=== PATIENT | female | born 1945 | race Caucasian/White ===

== ENCOUNTER 2017-12-12 14:50 | Outpatient (REF) | payer MEDICARE, MEDICAID, SELFPAY ==
[2017-12-12 19:17] LABS: HCT 41.3 % (36.0-46.0); HGB 13.5 g/dL (12.0-15.5); Mean Corp. HGB Concentration 32.7 g/dL (32.0-36.0); Mean Corpuscular Hemoglobin 30.5 pg (27.0-33.0); Mean Corpuscular Volume 93.4 fL (80-95); Mean Platelet Volume 11.1 fL (8.0-11.0); Platelet Count 277 x1000/uL (130-400); RBC 4.42 m/cumm (4.00-5.20); RBC Distribution Width 14.5 % (11.7-14.6); White Blood Cell Count 7.61 k/cumm (4.4-10.8)
[2017-12-12 19:29] LABS: TSH (W/Ref FT4) 0.03 uIU/mL (0.358-3.74)
[2017-12-12 19:50] LABS: FREE T4 1.15 ng/dL (0.76-1.46)
== END 2017-12-12 15:10 ==
LOC: NCHCN 14:50
PROVIDERS: PCP Internal Medicine; Visit Provider Internal Medicine
DX: R00.0 Tachycardia, unspecified (principal); E05.00 Thyrotoxicosis with diffuse goiter without thyrotoxic crisis or storm; F32.9 Major depressive disorder, single episode, unspecified
CPT/HCPCS: 85027; 84439; 84443

== ENCOUNTER 2018-06-12 12:07 | Outpatient (REF) | payer MEDICARE, MEDICAID, SELFPAY ==
[2018-06-12 19:03] LABS: HCT 40.7 % (36.0-46.0); HGB 13.1 g/dL (12.0-15.5); Mean Corp. HGB Concentration 32.2 g/dL (32.0-36.0); Mean Corpuscular Hemoglobin 30.6 pg (27.0-33.0); Mean Corpuscular Volume 95.1 fL (80-95); Platelet Count 243 x1000/uL (130-400); RBC 4.28 m/cumm (4.00-5.20); RBC Distribution Width 13.3 % (11.7-14.6)
[2018-06-12 19:18] LABS: Bacteria Many HPF (Negative); C & S Indicated? Yes; Casts Negative LPF (Negative); Crystals Negative HPF (Negative); Epithelial Cells Rare HPF (Negative); Mucus Negative (Negative); Other Cells Negative (Negative); WBC >50 HPF (0-5)
[2018-06-12 19:23] LABS: Anion Gap 10.8 mmol/L (3-11); BUN 17 mg/dL (7-18); CO2 26.2 mmol/L (21.0-32.0); CREATININE 1.13 mg/dL (0.55-1.02); Calcium 8.8 mg/dL (8.5-10.1); Chloride 97 mmol/L (98-107); Glucose 118 mg/dL (70-100); Potassium 4.5 mmol/L (3.5-5.1); Sodium 134 mmol/L (136-145); TSH 0.13 uIU/mL (0.358-3.74)
== END 2018-06-12 12:27 ==
LOC: NCHCN 12:07
PROVIDERS: PCP Internal Medicine; Visit Provider Internal Medicine
DX: E05.00 Thyrotoxicosis with diffuse goiter without thyrotoxic crisis or storm (principal); F32.9 Major depressive disorder, single episode, unspecified; N39.46 Mixed incontinence
CPT/HCPCS: 80048; 85027; 87077; 81015; 84443; 87086; 87186

== ENCOUNTER 2018-09-14 15:27 | Outpatient (REF) | payer MEDICARE, MEDICAID, SELFPAY ==
[2018-09-14 19:53] LABS: FREE T4 0.89 ng/dL (0.76-1.46); TSH 0.03 uIU/mL (0.36-3.74)
== END 2018-09-14 15:47 ==
LOC: NCHCN 15:27
PROVIDERS: PCP Internal Medicine; Visit Provider Internal Medicine
DX: E05.00 Thyrotoxicosis with diffuse goiter without thyrotoxic crisis or storm (principal); F17.210 Nicotine dependence, cigarettes, uncomplicated; Z86.79 Personal history of other diseases of the circulatory system
CPT/HCPCS: 84439; 84443

== ENCOUNTER 2019-04-16 14:08 | Outpatient (REF) | payer MEDICARE, MEDICAID, SELFPAY ==
[2019-04-16 20:08] LABS: HCT 39.7 % (36.0-46.0); HGB 12.9 g/dL (12.0-15.5); Mean Corp. HGB Concentration 32.5 g/dL (32.0-36.0); Mean Corpuscular Hemoglobin 30.9 pg (27.0-33.0); Mean Platelet Volume 10.5 fL (8.0-11.0); Platelet Count 354 x1000/uL (130-400); RBC 4.18 m/cumm (4.00-5.20); RBC Distribution Width 13.2 % (11.7-14.6); White Blood Cell Count 8.89 k/cumm (4.4-10.8)
[2019-04-16 20:25] LABS: FREE T4 1.65 ng/dL (0.76-1.46); TSH 0.03 uIU/mL (0.36-3.74)
== END 2019-04-16 14:28 ==
LOC: NCHCN 14:08
PROVIDERS: PCP Internal Medicine; Visit Provider Internal Medicine
DX: E05.00 Thyrotoxicosis with diffuse goiter without thyrotoxic crisis or storm (principal); F17.210 Nicotine dependence, cigarettes, uncomplicated; E66.3 Overweight
CPT/HCPCS: 85027; 84439; 84443

== ENCOUNTER 2020-03-24 16:52 | Outpatient (REF) | payer MEDICARE, MEDICAID, SELFPAY ==
[2020-03-24 15:29] LABS: HCT 41.6 % (36.0-46.0); HGB 13.4 g/dL (11.2-15.7); MCH 30.5 pg (27.0-33.0); MCHC 32.2 % (32.0-36.0); MCV 94.8 fL (80-95); MPV 10.7 fL (8.0-11.0); Platelet Count 241 10^3/uL (130-400); RBC 4.39 10^6/uL (3.93-5.22); RDW 14.1 % (11.7-14.6); RDW-SD 49.9 fL; WBC 7.48 10^3/uL (4.4-10.8)
[2020-03-24 15:48] LABS: Anion Gap 5.7 mmol/L (3-11); BUN 17 mg/dL (7-18); CO2 30.3 mmol/L (21.0-32.0); CREATININE 0.9 mg/dL (0.55-1.02); Calcium 8.8 mg/dL (8.5-10.1); Chloride 105 mmol/L (98-107); Glucose 90 mg/dL (74-106); Potassium 4.6 mmol/L (3.5-5.1); Sodium 141 mmol/L (136-145); TSH (W/Ref FT4) 6.03 uIU/mL (0.36-3.74)
[2020-03-24 16:14] LABS: FREE T4 0.77 ng/dL (0.76-1.46)
== END 2020-03-24 17:12 ==
LOC: NCHCN 16:52
PROVIDERS: PCP Internal Medicine; Visit Provider Internal Medicine
DX: E05.00 Thyrotoxicosis with diffuse goiter without thyrotoxic crisis or storm (principal); I10 Essential (primary) hypertension
CPT/HCPCS: 80048; 85027; 84439; 84443

== ENCOUNTER 2020-04-09 18:41 | Outpatient (REF) | payer MEDICARE, MEDICAID, SELFPAY ==
[2020-04-11 15:31] LABS: COVID-19 RT-PCR UVMMC Result Negative (Negative)
== END 2020-04-09 18:42 | disposition home or self-care (01) ==
LOC: NCHCN 18:41
PROVIDERS: PCP Internal Medicine; Visit Provider Internal Medicine
DX: J06.9 Acute upper respiratory infection, unspecified (principal)
CPT/HCPCS: U0003; U0005

== ENCOUNTER 2020-08-28 15:28 | Outpatient (REF) | payer MEDICARE, MEDICAID, SELFPAY ==
[2020-08-28 18:36] LABS: HCT 40.7 % (36.0-46.0); HGB 12.6 g/dL (11.2-15.7); MCH 30.1 pg (27.0-33.0); MCV 97.4 fL (80-95); MPV 10.9 fL (8.0-11.0); Platelet Count 245 10^3/uL (130-400); RBC 4.18 10^6/uL (3.93-5.22); RDW 13.9 % (11.7-14.6); RDW-SD 50.4 fL; WBC 6.66 10^3/uL (4.4-10.8)
[2020-08-28 19:09] LABS: Calculated LDL 162 mg/dL (<100); Cholesterol 233 mg/dL (<200); HDL Cholesterol 32 mg/dL (40-60); TSH (W/Ref FT4) 5.64 uIU/mL (0.36-3.74); Triglyceride 198 mg/dL (<150)
[2020-08-28 19:43] LABS: FREE T4 0.72 ng/dL (0.76-1.46)
== END 2020-08-28 15:29 | disposition home or self-care (01) ==
LOC: NCHCN 15:28
PROVIDERS: PCP Internal Medicine; Visit Provider Internal Medicine
DX: E05.00 Thyrotoxicosis with diffuse goiter without thyrotoxic crisis or storm (principal); F17.210 Nicotine dependence, cigarettes, uncomplicated; Z66 Do not resuscitate
CPT/HCPCS: 80061; 85027; 84439; 84443

== ENCOUNTER 2022-08-08 20:20 | Inpatient (IN) | payer MEDICARE, SELFPAY ==
[2022-08-08] VITALS (38 sets, daily range): BP systolic 98–149; BP diastolic 47–83; PULSE 84–113; RESP 15–25; TEMP 36.4–36.7; O2SAT 93–97
--- NOTE | 2022-08-08 20:15 | DI.CT_ITS ---
Exam(s) CT BRAIN NECK CTA EXAM: CT BRAIN NECK CTA CLINICAL HISTORY: L sided facial drrop and arm weakness. TECHNIQUE: Imaging Protocol: Axial CT angiography was performed with multi-slice acquisition and mu lti-planar and 3D reconstructions. CONTRAST MATERIAL: Intravenous: Omnipaque 350 Contrast volume:85 ml COMPARISON: No exams were available for comparison FINDINGS: CT Head W/O and W contrast: Ventricles and Extra axial spaces: Normal in size and morphology for the degree of atrophy.. Hemorrhage: None. Cerebral parenchyma: Mild atrophy. Mild white matter changes of small vessel disease. Midline shift: None. Brainstem/Cerebellum: Normal. Calvarium: Normal. Visualized Paranasal sinuses/Mastoids: Clear. Soft Tissues: Unremarkable. Enhancement: Normal. CTA Brain W: Internal Carotid Arteries: Petrous: Normal. Cavernous: Normal. Cerebral: Normal. Middle Cerebral Arteries: Right: No aneurysm. There is significant stenosis versus occlusion in the superior M2 segment. Con trast seen distal to this area.. Left: No aneurysm, occlusion or significant stenosis. Anterior Cerebral Arteries: Right: No aneurysm, occlusion or significant stenosis. Left: No aneurysm, occlusion or significant stenosis. Posterior cerebral Arteries: Right: No aneurysm, occlusion or significant stenosis. Left: No aneurysm, occlusion or significant stenosis. Vertebral Arteries: Right: No aneurysm, occlusion or significant stenosis. Left: No aneurysm, occlusion or significant stenosis. Basilar Artery: No aneurysm, occlusion or significant stenosis. CTA Neck W: Common Carotid: Right: No dissection, occlusion or significant stenosis. Left: No dissection, occlusion or significant stenosis. External Carotid: Right: No dissection, occlusion or significant stenosis. Left: No dissection, occlusion or significant stenosis. Internal Carotid: Right: Moderate stenosis secondary to plaque at the proximal right internal carotid artery. No disse ction, occlusion or significant stenosis. Left: Calcified plaque no dissection, occlusion or significant stenosis. Vertebral Artery: Right: No dissection, occlusion or significant stenosis. Left: No dissection, occlusion or significant stenosis. Lung Apices: Severe emphysematous changes. Bones: No acute abnormality. Soft Tissues: Normal. IMPRESSION: 1. CTA head: Severe stenosis versus occlusion in the superior M2 segment of the left middle cerebral artery. 2. Unremarkable CT Head. No acute infarct visible. 3. CTA neck: Moderate stenosis right proximal internal carotid artery. RADIATION DOSE DELIVERED: 2,186.01mGy.cm Total DLP DATA REPOSITORY: All CT scans at this facility are submitted to the National Radiology Data Registry (NRDR) Dose Index Registry (DIR) with the [employer] (A[employer]). RADIATION OPTIMIZATION: All CT scans at this facility use at least one of these dose optimization te chniques: automated exposure control; mA and/or kV adjustment per patient size (includes targeted exa ms where dose is matched to clinical indication); or iterative reconstruction.
--- NOTE | 2022-08-08 20:15 | RT.EKG_ITS ---
APPROVED REPORT Exam: Resting ECG Reason for Exam: neuro sxs Patient Location: E HR:100 bpm ECG Measurements Heart Rate 100 AXIS MT 180 P 96 QRSd 114 QRS -5 QT 398 T 98 QTc 516 Conclusion Sinus tachycardia...rate> 99 Ventricular premature complex...V complex w/ short R-R interval Left atrial enlargement...P, P'>60mS, <-0.15mV V1 Incomplete right bundle branch block...QRSd >112, terminal axis(90,270) Repol abnrm suggests ischemia, diffuse leads...ST-T neg, ant/lat/inf Prolonged QT interval...QTc >500mS no old EKG for comp
--- NOTE | 2022-08-08 20:30 | ED.GENADUL_ITS ---
Discharge Plan Disposition Patient Disposition: Admit to [facility] Condition: Fair Discharge Details Clinical Impression: Acute cerebrovascular accident (CVA) Admit Date/Time: 08/08/22 23:35 Admit Provider: Oziel Gipson Attending Provider: Oziel Gipson Primary Care Provider: Unknown,Unknown ED Provider: Pati Randall Discharge Data Discharge Date/Time-TO BE ENTERED AT DEPARTURE: 08/08/22 23:35 Medical Decision Making According to son, the patient is a full code. She would want CPR and an endotracheal tube for short period of time. Do not feel that she is a candidate candidate for thrombolytics at this time. It is unclear exactly when her symptoms began. I cannot run any absolute or relative contraindications with her. I have even tried just having her shake her head yes or no but still cannot get confirmation on any questions. Dr. Mitzy jeffers called at [phone]. The patient has a distal M2 left MCA occlusion or high-grade stenosis. She has not yet looked at her CTA neck. 2136 Provider Access at [facility] would not page stroke neurology without Facesheet. This was sent. The provider is still having difficulty opening the films at [facility] and will not talk to me until she has reviewed these. [address] Peck from [facility] stroke neuro. CTA neck is negative. We discussed the M2 distal occlusion and she says that nobody would go after this with embolectomy. She concurs with no thrombolytics because we do not really know last known well time or contraindications. I told her that the son requested she be transferred there and she states they do not accept people based on family request. We have sent the films down there again and she will attempt to open them. She will call back if she feels that there is anything that could be helped with embolectomy. 2229 neurology callback from [facility]. They reviewed the films with this interventional list who stated that there was nothing that they would do patient has a history of tachycardia but not atrial fibrillation her [facility] records. She will need an echo as well as monitoring. 99 patient's son Axel here in the ED. I answered all of his questions and updated him as best I could. Medical Records Medical records reviewed: Yes I reviewed the patient's medical records. Medical records narrative: We have no old medical records on the patient. We have been called [facility] and they have never seen the patient. Imaging Data Radiologic Study: Attestation: I personally reviewed and interpreted this imaging study as follows: Imaging: CT Scan Radiologist's impression: See note above in MDM. Lab Data Lab results reviewed: Yes I reviewed the patient's lab results. ECG Data Attestation: I personally reviewed and interpreted this ECG (s) as follows: (Sinus tachycardia at 100, PVC, LAE, incomplete RBBB, subtle depression inferiorly and ST depression in I) Interpretation: Unclear if pts EKG changes are old or new. Certainly EKG changes can be seen with CVA. Serial trops have been normal. HPI General Date/Time Provider Initiated Documentation: 08/08/22 20:27 . HPI Narrative: This 82-year-old female patient is brought in by EMS on a stroke alert. According to what EMS told me the patient is from [place] and vacations here during the summer (she shook her head vigorously no when I said this). She evidently lives alone in a cabin. She called 911 and seemed confus they report the NIHSS in the field was 28 with a fast ED 7. The dispatcher had trouble understanding the patient. EMS was dispatched and when they arrived found that the patient had a left facial droop as well as right arm and leg weakness. EMS in the ED tells me that she is aphasic with a fixed left gaze. BP was a little bit high in the field at 168/90. Blood sugar x2 in field were 132 and 148. NIHSS score in the field was 28. Fast ED score was 7. This was all per EMS. As she was found on the ground it certainly seems like she probably fell. I spoke to the patient's son, Axel Sanford, who lives in [place] ([phone]). He told me that he received a call from the patient's neighbor she was being taken to the hospital. The neighbor told him she saw the EMS vehicles. She reportedly is on a medication to keep her heart rate slow due to to an arrhythmia. She is on an antidepressant. He does not know whether she is on medications for high blood pressure. He reports a history of IV contrast and shellfish allergy. He says she has some weird allergies. I explained to him that we had already given her IV dye for CTA. The patient is unable to move her right arm and leg. I cannot ascertain whether there is a facial droop as she is unable to cooperate with this exam. Did not find that she has a gaze deficit at this time. She is unable to perform full EOMs. EMS later told me that the patient was last known well at 7 PM when she called 911. I explained to him that this was not when she was last known well as he says that at that time she was repeating her name and address. BPs in the ED 129/72 and 136/63. Related Data Home Medications Medication Instructions Recorded Confirmed amitriptyline 75 mg tablet 100 mg PO HS 11/12/13 05/14/17 aspirin 81 mg tablet,delayed 81 mg PO DAILY 11/12/13 05/14/17 release dextran 70-hypromellose (PF) 0.1 2 drp UD TID 11/12/13 05/14/17 %-0.3 % eye drops in a dropperette (Artificial Tears (PF)) methimazole 10 mg tablet 10 mg PO BID 11/12/13 05/14/17 mvbqzrcwnvza-Gq-cmii-minerals 18 1 tab PO DAILY 11/12/13 05/14/17 mg-0.4 mg tablet (ESSENTIAL Daily) clonazepam 0.5 mg tablet 1 tab PO BID PRN PRN 01/06/16 05/14/17 metoprolol succinate 50 mg 75 mg PO DAILY ##60 01/08/16 05/14/17 tablet,extended release 24 hr doxycycline hyclate 100 mg capsule 100 mg PO BID #8 caps 05/14/17 amitriptyline 100 mg tablet 100 mg PO DAILY 08/09/22 08/09/22 clonazepam 0.5 mg tablet 0.5 mg PO DAILY 08/09/22 08/09/22 metoprolol succinate 100 mg 100 mg PO DAILY 08/09/22 08/09/22 tablet,extended release 24 hr Previous Rx's Medication Instructions Recorded metoprolol succinate 50 mg 75 mg PO DAILY ##60 01/08/16 tablet,extended release 24 hr doxycycline hyclate 100 mg capsule 100 mg PO BID #8 caps 05/14/17 Allergies Allergy/AdvReac Type Severity Reaction Status Date / Time acetaminophen [From Tylenol] Allergy Mild Unverified 08/09/22 12:28 buspirone HCl [From BuSpar] Allergy Mild Hives Unverified 08/09/22 12:28 cyclobenzaprine HCl Allergy Mild Unverified 08/09/22 12:28 [From Flexeril] famotidine [From Pepcid] Allergy Mild Unverified 08/09/22 12:28 ketorolac tromethamine Allergy Mild Unverified 08/09/22 12:28 [From Toradol] nickel [Nickel] Allergy Mild Unverified 08/09/22 12:28 oxycodone HCl [From Percodan] Allergy Mild Unverified 08/09/22 12:28 oxycodone terephthalate Allergy Mild Unverified 08/09/22 12:28 [From Percodan] paroxetine HCl [From Paxil] Allergy Mild Unverified 08/09/22 12:28 Penicillins Allergy Mild Unverified 08/09/22 12:28 saccharin Allergy Mild Unverified 08/09/22 12:28 shellfish derived Allergy Mild Unverified 08/09/22 12:28 Sulfa (Sulfonamide Allergy Mild Unverified 08/09/22 12:28 Antibiotics) aspirin Allergy Unknown Unverified 08/09/22 12:28 buspirone [From BuSpar] Allergy Unknown Unverified 08/09/22 12:28 codeine Allergy Unknown Unverified 08/09/22 12:28 cyclobenzaprine Allergy Unknown Unverified 08/09/22 12:28 [From Flexeril] ketorolac [From Toradol] Allergy Unknown Unverified 08/09/22 12:28 oxycodone [From Percodan] Allergy Unknown Unverified 08/09/22 12:28 paroxetine [From Paxil] Allergy Unknown Unverified 08/09/22 12:28 red dye Allergy Unknown Unverified 08/09/22 12:28 codeine phosphate AdvReac Intermediate Nausea Unverified 08/09/22 12:28 [From Tylenol-Codeine] Review of Systems Unobtainable due to mental condition (aphasic from stroke) Constitutional Constitutional: Reports as per HPI, Denies chills, Denies fever(s) and Denies headache(s) Eyes Eyes: Denies blurry vision and Reports other (no redness) ENT Ears, Nose, Mouth, and Throat: Denies dizziness, Denies otalgia, Denies headache(s), Denies nasal congestion, Denies nasal discharge, Denies neck pain and Denies odynophagia Cardiovascular Cardiovascular: Denies chest pain, Denies palpitations and Denies dyspnea Respiratory Respiratory: Denies cough and Denies dyspnea Gastrointestinal Gastrointestinal: Denies abdominal pain, Denies diarrhea, Denies nausea, Denies odynophagia and Denies vomiting Genitourinary Genitourinary: Denies dysuria Musculoskeletal Musculoskeletal: Denies myalgias, Denies muscle weakness, Denies neck pain and Denies numbness Integumentary/Breasts Skin/Breast: Denies erythema and Denies rash Neurologic Neurologic: Denies dizziness, Denies headache(s) and Denies numbness Endocrine Endocrine: Denies palpitations PFSH All Active Problems (Updated 08/10/22 @ 20:34 by Ruth Jackson MD) Carotid stenosis, right (Acute) Palliative care encounter (Acute) Advance care planning (Acute) Acute cerebrovascular accident (CVA) (Acute) Hyperthyroidism (Chronic) Depression with anxiety (Chronic) Tachyarrhythmia (Chronic) Acute CHF (Acute) Dysphagia (Acute) Aphasia (Acute) Hypothyroidism (Chronic) Hemiparesis of right dominant side (Acute) DVT prophylaxis (Acute) Discharge planning issues (Acute) Social History Smoking/Tobacco Use Status: Current every day Smoking risk assessment performed?: Yes Drug use: Never Substance use type: unknown Do you feel safe in your relationship?: Yes Exam Const General: well developed, well groomed and acute distress Nutritional Appearance: well nourished Orientation: alert, awake and oriented x3 (Unable to assess orientation as patient is essentially aphasic) [facility] Head: normocephalic and atraumatic Ears: external ears normal Face and sinus: other (Unable to perform cranial nerve VII exam, cannot ascertain sensation) Mouth: mucous membranes dry (MM dry) and other (Cannot extend tongue) Eyes Eyelids: eyelids normal Conjunctivae: conjunctivae normal Pupils: PERRL EOM: EOM abnormal (Cannot ascertain AOM as patient cannot perform exam) Direct ophthalmoscopy: other Neck Neck: full ROM and supple Chest Chest: normal inspection of the chest Resp Effort & Inspection: normal respiratory effort and not able to speak in complete sentences Auscultation: clear to auscultation bilaterally Cardio Rate: regular rate Rhythm: regular rhythm Heart Sounds: no murmurs and no rubs GI Inspection: normal to inspection Palpation: soft, nontender and other (non distended) Auscultation: normal bowel sounds External Female Exam: normal external appearance Skin General skin exam: no rashes or lesions noted and other (pink, warm, dry) Neuro General: patient alert and patient awake Cranial Nerves: CN's II-XI intact bilaterally (Cannot perform in full) Speech: abnormal speech and expressive aphasia Motor: strength 5/5 throughout (L arm and leg only) and other (unable to lift R arm and leg) Sensory Exam: sensory deficits noted (unable to ascertain) Pupils: Mid position: bilateral Extrem General: normal to inspection, full ROM (L side) and pedal edema present Psych Mental Status: mental status grossly normal Speech and Movement: speech and movement normal Affect: normal affect Critical Care Time Critical Care Time Critical Care Time: Yes Total Critical Care Time: 90 Attestation: Consultation with [facility] neurology, V rad radiologist, nursing, EMS. Attempts made to obtain old records including from [facility]. Lab results, EKG, CT scans reviewed.
[2022-08-08] MEDS: Omnipaque 350 MG/ML 100 ML BTL IJ (20:40)
[2022-08-08] MEDS: Normal Saline - Diluent 50 ML VIAL IJ (20:40)
[2022-08-08] MEDS: Normal Saline 1,000 ML 1000 ML IV (20:42)
[2022-08-08 20:47] LABS: Abs Immature Grans 0.02 10^3/uL (0.0-0.06); Absolute Basophil Count 0.04 10^3/uL (0.0-0.2); Absolute Eosinophil Count 0.23 10^3/uL (0.0-0.7); Absolute Lymphocyte Count 1.82 10^3/uL (1.2-3.4); Absolute Monocyte Count 0.72 10^3/uL (0.1-0.8); Absolute Neutrophil Count 4.78 10^3/uL (1.2-6.7); Basophils % 0.5; HCT 33.6 % (36.0-46.0); HGB 10.8 g/dL (11.2-15.7); Immature Grans % 0.3; Lymphocytes % 23.9; MCH 29.6 pg (27.0-33.0); MCHC 32.1 % (32.0-36.0); MCV 92 fL (80-95); MPV 10.2 fL (8.0-11.0); Monocytes % 9.5; Neutrophils % 62.8; Platelet Count 223 10^3/uL (130-400); RBC 3.65 10^6/uL (3.93-5.22); RDW 14.8 % (11.7-14.6); RDW-SD 50.1 fL; WBC 7.61 10^3/uL (4.4-10.8)
[2022-08-08 21:08] LABS: ALT 9 U/L (14-59); AST 12 U/L (15-37); Albumin 2.7 g/dL (3.4-5.0); Alkaline Phosphatase 72 U/L (46-116); Anion Gap 6.3 mmol/L (3-11); BUN 18 mg/dL (7-18); Bilirubin, Total 0.4 mg/dL (0.2-1.0); CO2 27.7 mmol/L (21.0-32.0); CREATININE 0.9 mg/dL (0.55-1.02); Calcium 7.9 mg/dL (8.5-10.1); Chloride 106 mmol/L (98-107); Estimated GFR 67.08 (mL/min/1.73m2); Glucose 120 mg/dL (74-106); Potassium 3.6 mmol/L (3.5-5.1); Sodium 140 mmol/L (136-145); Total Protein 6.1 g/dL (6.4-8.2); Troponin I < 50 ng/L (<or=60)
--- NOTE | 2022-08-08 21:43 | DI.VRAD_ITS ---
PROCEDURE INFORMATION: Exam: CT Head Without Contrast Exam date and time: 08/08/2022 8:20 PM Age: 82 years old Clinical indication: Stroke-like symptoms; Bilateral facial droop; Generalized weakness; Additional info: Right arm weakness TECHNIQUE: Imaging protocol: Computed tomography of the head without contrast. Other technique: STROKE PROTOCOL was implemented. COMPARISON: No relevant prior studies available. FINDINGS: Brain: There is no acute intracranial hemorrhage, mass effect or midline shift. No large acute territorial infarct identified. There are patchy regions of hypodensity in the periventricular and subcortical white matter, likely on the basis of chronic microvascular ischemic disease. Cerebral ventricles: The ventricles and sulci are prominent in size, which is at least in part due to global cerebral volume loss. Paranasal sinuses: Visualized sinuses are unremarkable. No fluid levels. Mastoid air cells: Visualized mastoid air cells are well aerated. Bones/joints: Unremarkable. No acute fracture. Soft tissues: Unremarkable. IMPRESSION: No acute intracranial hemorrhage, mass effect or midline shift. ASSESSMENT: ASPECTS ([place] Stroke Program Early CT Score) is 10. PROCEDURE INFORMATION: Exam: CTA Head With Contrast, Arteriography Exam date and time: 08/08/2022 8:20 PM Age: 82 years old Clinical indication: Stroke-like symptoms; Bilateral facial droop; Generalized weakness; Additional info: Right arm weakness TECHNIQUE: Imaging protocol: Computed tomographic angiography of the head with contrast. Exam focused on the arteries. 3D rendering (Not supervised by radiologist): MIP and/or 3D reconstructed images were created by the technologist. Contrast material: OMNIPAQUE 350; Contrast volume: 85 ml; Contrast route: INTRAVENOUS (IV); COMPARISON: No relevant prior studies available. FINDINGS: ANTERIOR CIRCULATION: Right internal carotid artery: Intracranial segment is patent with no significant stenosis. No aneurysm. Right middle cerebral artery: There is short segment occlusion versus high-grade stenosis in the superior segment of the left middle cerebral artery. Right anterior cerebral artery: No occlusion or significant stenosis. No aneurysm. Left internal carotid artery: Intracranial segment is patent with no significant stenosis. No aneurysm. Left middle cerebral artery: No occlusion or significant stenosis. No aneurysm. Left anterior cerebral artery: No occlusion or significant stenosis. No aneurysm. POSTERIOR CIRCULATION: Right vertebral artery: No occlusion or significant stenosis. No aneurysm. Left vertebral artery: No occlusion or significant stenosis. No aneurysm. Basilar artery: No occlusion or significant stenosis. No aneurysm. Right posterior cerebral artery: No occlusion or significant stenosis. No aneurysm. Left posterior cerebral artery: No occlusion or significant stenosis. No aneurysm. Brain: No definite mass, mass effect, or midline shift. Cerebral ventricles: No ventriculomegaly. Bones/joints: Unremarkable. No acute fracture. Soft tissues: Unremarkable. IMPRESSION: Short segment occlusion versus high-grade stenosis in the superior M2 segment of the left MCA. PROCEDURE INFORMATION: Exam: CTA Neck With Contrast Exam date and time: 08/08/2022 8:20 PM Age: 82 years old Clinical indication: Stroke-like symptoms; Bilateral facial droop; Generalized weakness; Additional info: Right arm weakness TECHNIQUE: Imaging protocol: Computed tomographic angiography of the neck with contrast. 3D rendering (Not supervised by radiologist): MIP and/or 3D reconstructed images were created by the technologist. Radiation optimization: All CT scans at this facility use at least one of these dose optimization techniques: automated exposure control; mA and/or kV adjustment per patient size (includes targeted exams where dose is matched to clinical indication); or iterative reconstruction. Contrast material: OMNIPAQUE 350; Contrast volume: 85 ml; Contrast route: INTRAVENOUS (IV); COMPARISON: No relevant prior studies available. FINDINGS: Right common carotid artery: No stenosis. No dissection or occlusion. Right internal carotid artery: There is approximately 50% stenosis at the proximal right internal carotid artery, secondary to atherosclerotic plaque. No dissection or occlusion. Right external carotid artery: No occlusion or stenosis of the origin. Left common carotid artery: No stenosis. No dissection or occlusion. Left internal carotid artery: No stenosis of the extracranial segment. No dissection or occlusion. Prominent atherosclerotic plaque noted. Left external carotid artery: No occlusion or stenosis of the origin. Right vertebral artery: No stenosis. No dissection or occlusion. Left vertebral artery: No stenosis. No dissection or occlusion. Soft tissues: Normal. No significant soft tissue swelling. Bones/joints: No acute fracture. Lungs: Extensive centrilobular emphysema noted throughout the lung lawson. IMPRESSION: 1. Moderate stenosis at the proximal right ICA secondary to atherosclerotic plaque. 2. Extensive centrilobular emphysema throughout the bilateral lung lawson. REFERENCES: 1. NASCET CRITERIA. The degree of stenosis in the cervical segment of the internal carotid artery is based on NASCET criteria. Normal is no stenosis. Mild is less than 50% stenosis. Moderate is 50-69% stenosis. Severe is 70% to 99% stenosis. Total occlusion is no detectable patent lumen. 2. THIS REPORT CONTAINS FINDINGS THAT MAY BE CRITICAL TO PATIENT CARE. The findings were verbally communicated via telephone conference with Pati Randall at 9:24 PM EDT on 08/08/2022. The findings were acknowledged and understood. Dictated and Authenticated by: Solange Nevarez MD. Ordering:MARY JO Krueger MD
[2022-08-08 22:00] LABS: PTT Activated 24.5 sec (21.5-31.9); Prothrombin Time 10.4 sec (9.3-11.0)
[2022-08-08] MEDS: Aspirin 300 MG SUPP 325 MG PR (22:13)
[2022-08-08] MEDS: Normal Saline 1,000 ML 125 ML IV (22:45)
[2022-08-09] VITALS (254 sets, daily range): BP systolic 113–170; BP diastolic 54–120; PULSE 65–117; RESP 12–33; TEMP 36.3–37.3; O2SAT 89–98
--- NOTE | 2022-08-09 | DI.RAD_ITS ---
Exam(s) XR PORTABLE CHEST AP EXAM: XR PORTABLE CHEST AP CLINICAL HISTORY: ?CHF, aspiration pneumonia - respiratory distress TECHNIQUE: 2D digital imaging was performed. COMPARISON: No exams were available for comparison FINDINGS: Leads overlie the chest. LUNGS: Vascular prominence. Mildly increased interstitial markings. Findings could represent CHF. No pleural abnormality seen. No focal area of consolidation visible. HEART: Enlarged. Calcification at arch. AORTA: Normal diameter. BONES: Unremarkable for age. Soft tissues: Unremarkable. IMPRESSION: Cardiomegaly and mild CHF. DATA REPOSITORY: RADIATION DOSE DELIVERED:
--- NOTE | 2022-08-09 00:10 | HPE_ITS ---
Date of service: 08/08/22 Time of Service: 23:30 Assessment and Plan Assessment and plan (1) Acute cerebrovascular accident (CVA): Start date: 08/08/22 Status: Acute Assessment and plan: Patient has flaccid right hemiplegia and right facial droop with expressive aphasia which is severe. CT of the head does reveal occlusion of the left M2 branch of the MCA and she is not a candidate for tPA or thrombolytectomy. She was given an aspirin rectally and this will be Continued orally if she can chew with further evaluation including echocardiogram with bubble study, cardiac monitoring with the patient having a dysrhythmia but not atrial fibrillation and MRI of the brain in the morning. She will require long-term rehabilitation. PT/OT and SP with swallow evaluation were ordered. (2) Hyperthyroidism: Status: Chronic Assessment and plan: Patient is chronically on methimazole which will be continued once dosing is confirmed with son to bring in her home medications. TSH will be checked. (3) Depression with anxiety: Status: Chronic Assessment and plan: Patient is chronically on amitriptyline and clonazepam which will be continued. (4) Tachyarrhythmia: Status: Chronic Assessment and plan: Patient's son does not know of any overt history of hypertension but does note that she had a fast heart rate in past with a evaluation and was placed on metoprolol. Metoprolol will be adjusted and used to treat systolic blood p ressures approaching 160 with patient blood pressure slightly low upon admission and her appearing clinically dry though her creatinine was normal. She will have gentle IV hydration, reinitiate metoprolol at a lower dose of metoprolol tartrate if needed and at this point she will have permissive hypertension with her CVA. History of Present Illness History of Present Illness Chief Complaint: Garbled speech with right-sided weakness Narrative: This is a 76-year-old female patient who was last seen in [place] for years ago by Dr. Morgan as her PCP and then moved to [place] where she has received care until recently. She has moved back to [place] but has not been able to reestablish with her previous PCP or a new PCP. She does have a diagnosis of a tachyarrhythmia for which she was seen 4 years ago locally at [facility] and then at [facility]. [facility] does not have any records of the patient having atrial fibrillation. Patient does take medication for hyperthyroidism, chronic anxiety and for her fast heart rate and blood pressure control. She is not able to offer history with this obtained mostly from her son. Her son lives within [address] hours of [facility]. The patient was last known to be speaking clearly about 4:30 in the afternoon the day of presentation and then she made a 911 call herself around 7:30 in the evening with garbled speech and not being able to be understood. EMS did find her in distress with right-sided weakness and right facial droop as well as expressive aphasia and garbled speech. When I examined the patient she was unable to offer further history with severe expressive aphasia appearing frustrated when trying to talk. She also had an obvious right facial droop and was not moving her right side. Patient's son, Axel Sanford sta sonido that the patient does smoke tobacco but does not drink alcohol. He states that his mother has never had a previous CVA and he is not aware that she has ever had atrial fibrillation. She is not taking an aspirin daily. She is a full code. Patient's son did give history of his mother having cataract surgery just recently and done locally but has not seen a physician since and returning to to with a history of COVID-19 infection in February 2022 for which she had not fully recovered having episodes of dizziness and him thinking that she was a COVID 19 long-hauler. In the ED the patient was evaluated with CTA of the head neck with CT of the brain with images reviewed by [facility] neurology and pertinent for a distal M2 occlusion of the left middle cerebral artery and no evidence of significant carotid artery stenosis or acute CVA by CT. Neurology recommendations were to administer aspirin and do stroke work-up with patient not being a candidate for thrombolytectomy or tPA. Patient was admitted for cardiac monitoring and permissive hypertension treatment modifying metoprolol and trying to allow systolic blood pressure above 140 as well as to initiate high-dose statin. Review of Systems Narrative: 13 point review of systems otherwise unrevealing or stable as per son. The patient was in her usual state of health though a smoker and slowing down in her activity but still living independently prior to this event. PFSH All Active Problems (Updated 08/09/22 @ 01:39 by Oziel Gipson) Tachyarrhythmia (Chronic) Depression with anxiety (Chronic) Hyperthyroidism (Chronic) Acute cerebrovascular accident (CVA) (Acute) Social History Smoking/Tobacco Use Status: Unknown Smoking risk assessment performed?: Yes Substance use type: unknown Meds Allergies and Home Medications Home Medications Medication Instructions Recorded Confirmed Type amitriptyline 100 mg tablet 100 mg PO DAILY 08/09/22 08/09/22 History clonazepam 0.5 mg tablet 0.5 mg PO DAILY 08/09/22 08/09/22 History metoprolol succinate 100 mg 100 mg PO DAILY 08/09/22 08/09/22 History tablet,extended release 24 hr Exam Narrative Exam Narrative: General: Patient appears older than stated age, moderately obese, appearing to be oriented at least to place but difficult to assess further with patient's expressive aphasia. She is in moderate distress from her acute stroke symptoms. HEENT: Normocephalic, eyes with pupils equal and react to light symmetrically, extraocular movement intact and sclera anicteric. Oropharynx with very dry mucosa and did replace above and below. Neck: Supple without JVD. No auscultated bruits. Back: Stooped posture without CVA tenderness. Lungs: Fair aeration clear to auscultation and percussion. Heart: Irregularly irregular rhythm with no appreciable murmur or gallop. classroom monitor did reveal PACs and bigeminy with occasional PVC but sinus rhythm is baseline. Breast: Exam deferred. Abdomen: Obese contour, soft nontender to palpation with no palpable hepatosplenomegaly. Genitalia/rectal: Exam deferred. Patient did have Pereyra catheter placed. Extremities: Without clubbing, cyanosis or grossly pitting edema with nonpitting edema lower extremities. Fair cap refill. Skin: Normal color, warm and dry. Neuro: Cranial nerves II through XII grossly intact, patient has right facial droop and is speaking in garbled speech which is unintelligible and appears frustrated when trying to speak. She has flaccid right hemiparesis of upper and lower extremities with Babinski on the right and 5 out of 5 strength on the left. There are no tremors. Psych: Depressed mood with anxious affect. No abnormal thought processes manifested with patient's limited speech capabilities. Remote and recent memory not testable patient unable to speak. Results Imaging Imaging Studies: Exam: CT Head Without Contrast Exam date and time: 08/08/2022 8:20 PM Age: 82 years old Clinical indication: Stroke-like symptoms; Bilateral facial droop; Generalized weakness; Additional info: Right arm weakness TECHNIQUE: Imaging protocol: Computed tomography of the head without contrast. Other technique: STROKE PROTOCOL was implemented. COMPARISON: No relevant prior studies available. FINDINGS: Brain: There is no acute intracranial hemorrhage, mass effect or midline shift. No large acute territorial infarct identified. There are patchy regions of hypodensity in the periventricular and subcortical white matter, likely on the basis of chronic microvascular ischemic disease. Cerebral ventricles: The ventricles and sulci are prominent in size, which is at least in part due to global cerebral volume loss. Paranasal sinuses: Visualized sinuses are unremarkable. No fluid levels. Mastoid air cells: Visualized mastoid air cells are well aerated. Bones/joints: Unremarkable. No acute fracture. Soft tissues: Unremarkable. IMPRESSION: No acute intracranial hemorrhage, mass effect or midline shift. ASSESSMENT: ASPECTS ([place] Stroke Program Early CT Score) is 10. PROCEDURE INFORMATION: Exam: CTA Head With Contrast, Arteriography Exam date and time: 08/08/2022 8:20 PM Age: 82 years old Clinical indication: Stroke-like symptoms; Bilateral facial droop; Generalized weakness; Additional info: Right arm weakness TECHNIQUE: Imaging protocol: Computed tomographic angiography of the head with contrast. Exam focused on the arteries. 3D rendering (Not supervised by radiologist): MIP and/or 3D reconstructed images were created by the technologist. Contrast material: OMNIPAQUE 350; Contrast volume: 85 ml; Contrast route: INTRAVENOUS (IV);? COMPARISON: No relevant prior studies available. FINDINGS: ANTERIOR CIRCULATION: Right internal carotid artery: Intracranial segment is patent with no significant stenosis. No aneurysm. Right middle cerebral artery: There is short segment occlusion versus high-grade stenosis in the superior segment of the left middle cerebral artery. Right anterior cerebral artery: No occlusion or significant stenosis. No aneurysm.? Left internal carotid artery: Intracranial segment is patent with no significant stenosis. No aneurysm. Left middle cerebral artery: No occlusion or significant stenosis. No aneurysm. ? Left anterior cerebral artery: No occlusion or significant stenosis. No aneurysm.? POSTERIOR CIRCULATION: Right vertebral artery: No occlusion or significant stenosis. No aneurysm.? Left vertebral artery: No occlusion or significant stenosis. No aneurysm.? Basilar artery: No occlusion or significant stenosis. No aneurysm. Right posterior cerebral artery: No occlusion or significant stenosis. No aneurysm.? Left posterior cerebral artery: No occlusion or significant stenosis. No aneurysm.? Brain: No definite mass, mass effect, or midline shift. Cerebral ventricles: No ventriculomegaly. Bones/joints: Unremarkable. No acute fracture. Soft tissues: Unremarkable. IMPRESSION: Short segment occlusion versus high-grade stenosis in the superior M2 segment of the left MCA. Labs 08/08/22 20:30 08/08/22 20:30 Labs: Laboratory Results - last 24 hr 08/08/22 08/08/22 08/08/22 20:30 20:30 20:30 WBC 7.61 RBC 3.65 L Hgb 10.8 L Hct 33.6 L MCV 92 MCH 29.6 MCHC 32.1 RDW 14.8 H Plt Count 223 MPV 10.2 Immature Gran % 0.3 Neutrophils % 62.8 Lymphocytes % 23.9 Monocytes % 9.5 Eosinophils % 3.0 Basophils % 0.5 Nucleated RBC % 0.0 Absolute Neutrophils 4.78 Absolute Lymphocytes 1.82 Absolute Monocytes 0.72 Absolute Eosinophils 0.23 Absolute Basophils 0.04 PT 10.4 INR 1.0 APTT 24.5 Sodium 140 Potassium 3.6 Chloride 106 Carbon Dioxide 27.7 Anion Gap 6.3 BUN 18 Creatinine 0.9 Est GFR (CKD-EPI 2020) 67.08 Glucose 120 H Calcium 7.9 L Magnesium 2.0 Total Bilirubin 0.4 AST 12 L ALT 9 L Alkaline Phosphatase 72 Troponin I < 50 Total Protein 6.1 L Albumin 2.7 L Last Vital Signs Temp 36.7 C 08/08/22 23:36 Pulse 90 08/08/22 23:36 Resp 18 08/08/22 23:36 BP 139/57 L 08/08/22 23:36 Pulse Ox 95 08/08/22 23:36 Time Spent Time spent with Patient: >75 minutes Time was spent: preparing to see the patient(eg.review tests), obtaining and/or reviewing separately otained hiistory, ordering medications,tests, procedures, referring, communicating with other health healthcare network pricing consultant, indepentently interpreting results and care coordination
[2022-08-09 00:20] LABS: Troponin I < 50 ng/L (<or=60)
[2022-08-09 00:28] LABS: Bilirubin Negative (Negative); Blood Trace-intact (Negative); Clarity Clear (Clear); Glucose Negative (Negative); Ketones Negative (Negative); Leukocyte Esterase Negative (Negative); Nitrite Positive (Negative); Specific Gravity <= 1.005 (1.005-1.025); Urobilinogen 0.2 mg/dL (Up to 0.2)
[2022-08-09 00:38] LABS: Epithelial Cells Rare HPF (Negative); RBC 0-2 HPF (0-2); WBC 0-2 HPF (0-5)
[2022-08-09 00:39] LABS: Bacteria Moderate HPF (Negative); C & S Indicated? Yes; Crystals Negative HPF (Negative); Mucus Negative (Negative)
[2022-08-09 06:04] LABS: HCT 37.3 % (36.0-46.0); MCH 29.3 pg (27.0-33.0); MCHC 32.2 % (32.0-36.0); MCV 91 fL (80-95); MPV 10.1 fL (8.0-11.0); Platelet Count 250 10^3/uL (130-400); RBC 4.09 10^6/uL (3.93-5.22); RDW-SD 50.4 fL; WBC 8.63 10^3/uL (4.4-10.8)
[2022-08-09 06:20] LABS: ALT 16 U/L (14-59); AST 18 U/L (15-37); Albumin 3.1 g/dL (3.4-5.0); Alkaline Phosphatase 82 U/L (46-116); Anion Gap 8.5 mmol/L (3-11); BUN 13 mg/dL (7-18); Bilirubin, Total 0.6 mg/dL (0.2-1.0); CO2 24.5 mmol/L (21.0-32.0); CREATININE 0.9 mg/dL (0.55-1.02); Calcium 8.2 mg/dL (8.5-10.1); Chloride 110 mmol/L (98-107); Estimated GFR 67.08 (mL/min/1.73m2); Glucose 103 mg/dL (74-106); Potassium 4.5 mmol/L (3.5-5.1); Sodium 143 mmol/L (136-145); Total Protein 6.9 g/dL (6.4-8.2)
[2022-08-09 06:29] LABS: TSH (W/Ref FT4) 15.02 uIU/mL (0.36-3.74)
[2022-08-09 06:46] LABS: FREE T4 0.53 ng/dL (0.76-1.46)
--- NOTE | 2022-08-09 08:00 | DI.US_ITS ---
APPROVED REPORT EXAM: Comprehensive 2D, Doppler, and color-flow Echocardiogram Patient Location: In-Patient Room/Bed: 215 Automatic Toe Laster: Guillermina Martinez RDCS (AE) Indications: Left embolic CVA, HTN, Smoker Echo Enhancing Agent Indication: Rule out Shunt Agent(s) / Amount(s) Used: Agitated Saline 20.0 cc Comments: Contrast study was performed with 2 IV injections of 10ccs of agitated normal saline, at re st and with cough. Patient was unable to cooperate with maneuvers. Negative contrast study for shunt flow. Other Information Study Quality: Fair. Technically limited study due to body habitus, inability to position patient exa m done supine, patient unable to respond. Conclusion Normal left ventricular wall thickness and chamber size. Estimated ejection fraction is 40 to 45%. Rhythm is notable for frequent ventricular ectopic beats, significant [id number] variation affects assessment of LV function and wall motion Normal right ventricular size and systolic function Left atrium is mildly dilated. Right atrial size is normal Aortic valve is trileaflet with trace regurgitation Thickened mitral leaflets, moderate mitral regurgitation Normal tricuspid valve with trace to mild regurgitation Wall motion Left Ventricle The left ventricle is normal size. Left ventricular systolic function is moderately decreased. There is normal left ventricular wall thickness. There is no ventricular septal defect visualized. LVEF is 40-45%. Right Ventricle Right ventricle is grossly normal in size. The right ventricular systolic function is normal. Atria Left atrium is mildly dilated. The right atrium size is normal. The interatrial septum is intact with no evidence for an atrial septal defect. Aortic Valve The aortic valve is normal in structure. Aortic valve is trileaflet. There is no aortic valvular sten osis. Trace aortic regurgitation. Mitral Valve Thickened mitral leaflets No evidence of mitral valve stenosis. Moderate mitral regurgitation. Tricuspid Valve The tricuspid valve is normal in structure. There is no tricuspid valve stenosis. Trace to mild tric uspid regurgitation. Pulmonic Valve The pulmonary valve is normal in structure. There is no pulmonic valvular stenosis. Trace pulmonic re gurgitation. Great Vessels The aortic root is normal in size. The ascending aorta is mildly dilated. Aortic arch is not well vis ualized. The IVC collapses <50% with normal respiration Pericardium There is no pericardial effusion. 2D Dimensions IVSD d PLAX 0.91 cm F: 0.6-1.0 LV Vol A2C d MOD 76.8 mL LVPW d PLAX 0.91 cm F: 0.6 - 1.0 LV Vol A4C d MOD 93.1 mL LVID d PLAX 4.74 cm F: 3.8 - 5.2 LA vol/ BSA A4C s A-L 44.2 mL/m2 LVDs 3.95 cm F: 2.2 - 3.5 LA Area A4C s MOD 24.02 cm2 Ao Root d 2.71 cm F: 2.7 - 3.3 LV EF A4C MOD 39.6 % RA Area A4C 13.36 cm2 LV EF A2C MOD 39.1 % RA Vol/ BSA A4C s A-L 17.8 mL/m2 LV EF Biplane MOD 39.8 % Ao Asc Diam d 3.33 cm F: 2.3 - 3.1 SV 34.13 mL LV EF Teichholz 32.9 % SV Index 20.57 mL/m2 LVEF (Coats's) 39.80 % F: 54 - 74 LV Volume 68.71 mL F: 46 - 106 LV Volume Index 40.18 mL/m2 F: 29 - 61 LV Vol Biplane MOD 85.7 mL FS 15.60 % M-Mode TAPSE 1.80 cm (M/F) >1.7 LV Diastology MV E' lateral 0.100 (>0.1 m/s) E/A Ratio 2.1 LV E/e LAT 14.55 (<14) MV E Vmax 1.45 (0.4-1.3 m/s) MV E/E' lateral 14.58 MV A Vmax 0.70 (0.4-1.3 m/s) MV E/A Ratio 1.99 Aortic Valve LVOT Area 3.19 cm2 AoV Area Vmax 2.31 cm2 LVOT Vmax 0.62 m/s AoV Area/ BSA (Vmax) 1.39 cm2/m2 LVOT Mean Moi. 0.41 m/s SILVIO Mean Moi. 1.91 cm2 LVOT Peak Grad 1.5 mmHg SILVIO Mean Moi. Index 1.15 cm2/m2 LVOT Mean Grad 0.8 mmHg LVOT VTI 0.100 m LVOT Diam s 2.00 cm AoV Vmax 0.86 m/s Velocity Ratio 0.72 AoV Mean Moi. 0.69 m/s AoV Peak Grad 2.9 mmHg LVOT SV 31.89 mL AoV Mean Grad 2.0 mmHg AoV VTI 0.155 m AoV Area VTI 2.06 cm2 AoV Area/ BSA (VTI) 1.24 cm/m2 Mitral Valve MV DT 125 (160-240 msec) MV PHT 36 msec MV Area PHT 6.08 cm2 MV VTI 0.258 m MV Area VTI 1.24 (4.0-6.0 cm2) Pulmonary Valve PV Vmax 0.67 (0.5-1.5 m/s) RVOT Peak Gr. 0.31 mmHg PV Peak Grad 1.8 mmHg RVOT Mean Gr. 0.20 mmHg PV Mean Grad 1.0 mmHg RVOT VTI 0.056 m PV VTI 0.118 m RVOT Vmax 0.28 m/s Tricuspid Valve TR Peak Grad 54.4 mmHg TR Vmax 3.69 m/s RA Pressure 3.00 mmHg RVSP (TR) 57.5 mmHg
--- NOTE | 2022-08-09 08:00 | DI.MRI_ITS ---
Exam(s) MR BRAIN WO EXAM: MR BRAIN WO CLINICAL HISTORY: Acute Left CVA. TECHNIQUE: Multiplanar multisequence MRI of the brain was performed. CONTRAST MATERIAL: Noncontrast COMPARISON: CT CT BRAIN NECK CTA from 08/08/2022 FINDINGS: VENTRICLES AND EXTRA AXIAL SPACES: Normal in size and morphology for the patient's age. HEMORRHAGE: None. CEREBRAL PARENCHYMA: Small to moderate size area of restricted diffusion in the left frontal lobe, in the middle cerebral artery distribution, consistent with acute infarct. Some edema is seen on T2 an d FLAIR sequences. No additional areas of restricted diffusion are noted.. No space-occupying lesio n identified. Mild to moderate atrophy. MIDLINE SHIFT: None. BRAINSTEM/CEREBELLUM: Normal. CALVARIUM: Normal. VISUALIZED PARANASAL SINUSES/MASTOIDS: Clear. OTHER FINDINGS: None. IMPRESSION: Small to moderate size area of acute infarct in the left middle cerebral artery distribution. DATA REPOSITORY:
--- NOTE | 2022-08-09 10:15 | SP_ITS ---
Date of service: 08/09/22 Time of Service: 10:15 Subjective Order received for REPAIR TECHNICIAN Clinical Swallow Evaluation from Dr. Gipson given acute L CVA. Elvia was contacted at bedside for swallow and initial cognitive-communication evaluation. REPAIR TECHNICIAN performing oral care as able and repositioning for PO trials. Limited subjective report given profound deficits. HPI: Patient is a 76 y/o F with hx tachyarrythmia, depression with anxiety, hyperthyroidism, presenting to ED after calling 911 herself yesterday, with R facial droop, garbled speech, and noted on CT with distal M2 occlusion of L MCA. Per family she does smoke tobacco but no alcohol. She had COVID-19 infection in February of 2022 with unresolved episodes of dizziness since then. PFSH All Active Problems?(Updated 08/09/22 @ 01:39 by Oziel Gipson) Tachyarrhythmia (Chronic) Depression with anxiety (Chronic) Hyperthyroidism (Chronic) Acute cerebrovascular accident (CVA) (Acute) Objective Objective Cognitive-Linguistic: Y/N Comprehension using written Yes/No pointin% accurate with Y/N egocentric (Is your name , etc.) - Reliability improves with nod/head shake to 80% Simple commands: Look at ____: +3/3 Point to: (shapes): +0/3 Verbalizations made: Um, A girl Yah Orientation using Y/N responses via head shake/nod: Oriented to place (hospital vs school), Year of , Current year. Not oriented to current month. Identifying written words (single, short words) given verbal stimulus: +0/3. Suspect R neglect given patients increased responsiveness to clinician and stimuli when standing on L side. Speech: Unable to assess for dysarthria in setting of profound expressive deficits. Patient does achieve phonation with minimal verbalizations (Um, etc). Oral-Motor evaluation: Limited due to suspected oral apraxia and comprehension deficits. Able to open mouth wide and close mouth on command. Does not follow any other instructions (e.g., tongue protrusion, lip retraction, cheek puff, etc.) Unable to swallow on command or cough on command. Patient with upper and lower dentures. Noting R facial droop at rest. Respiration: 1/5L O2 via NC. Nursing reports 94% O2 saturation at baseline. Oral care: Fair REPAIR TECHNICIAN providing oral care with swabs, patient will not allow clinician to remove dentures despite loose fit. PO trials: Given 2 ice chips and 3 very small sips water via 1/2 tsp, patient initiates only 2 swallows total despite cues. Ice chips are chewed spontaneously without ability to inhibit (vs. comprehension of instructions) Delayed significant coughing, eyes water after several trials. SPO2 at baseline 94% Per nursing. Checked following PO trials, saturating at 92-93% but with residual coughing. MD entering and noting upper airway wetness. MD asking if patient would like feeding tube if she cannot swallow, patient shaking head no. Assessment Suspect severe-profound acute dysphagia complicated by oral apraxia. Patient should remain NPO given s/sx aspiration and demonstrated difficulty clearing secretions and lack of volitional cough and swallow abilities. For neuro re- stimulation and comfort, staff should perform frequent oral care as below and follow with several trials of spoon dipped in ice water to stimulate swallow response. Regarding cognitive-communication function, suspect [id number] expressive aphasia&apraxia of speech, and at least moderate receptive aphasia, though this is a relative strength. Suspect reliability of responses to comprehension questions is complicated heavily by anxiety and oral and/or limb apraxia. Patient is MOST reliable to simple questions asked one at a time, using head nod/shake responses. She does not appear to increase reliability using Yes/NO or picture communication board. Suspect neglect, alexia, and visuo- spatial deficits are contributing. Given how acute she is, she may yet see improvements in communication and dysphagia symptoms. REPAIR TECHNICIAN will continue to follow throughout the week to monitor for improvements. Any conversations regarding goals of care and medical decision-making should be held multiple times using the recommendations below to ensure consistency of response. Precede such questions with concrete questions with known answers (.e.g., Is your name Elvia, etc) to ensure reliable Y/N communication before engaging in decision-making, as REPAIR TECHNICIAN noting some waxing and waning in consistency of responses within session. DISCHARGE: SNF unless not in line with patient/family goals of care. Recommend Palliative consult. Alternative feeding routes to be discussed with medical team, family, and pe nding further continued re-evaluation for recovery of function. MBSS to be performed as needed when/if appropriate/safe for further PO trials. Recommendations: Communication Recommendations for Providers: ASK Y/N QUESTIONS Instruct patient to use head nod/shake to communicate as she will try to speak and this causes frustration and anxiety. Stand to the LEFT of patient when communicating. Keep questions and information short and simple to minimize confusion and anxiety. Before PLAN OF CARE/PALLIATIVE/MEDICAL DECISION-MAKING instructions, ensure patient is with reliable Y/N communication by asking several easy questions with known responses (e.g., Is your name XXXX?). Include both incorrect and correct to ensure true comprehension. Dysphagia recommendations & Aspiration Precautions: STRICT NPO Perform Q2-3h oral care with swabs or suction kits. Offer frequent trials of metal spoons dipped in ice water for surface hydration/comfort and for swallow stimulation. Offer yankauer suction frequently to improve clearance of oral secretions. Plan REPAIR TECHNICIAN to continue to follow while on unit: Short Term Goals: Patient will participate in continued assessment for dysphagia and cognitive- communication. Time spent: 50 minutes Coding Diagnoses CPT Codes EVALUATE SWALLOWING FUNCTION - [id number] ([id number]) SPEECH SOUND LANG COMPREHEN - [id number] ([id number])
--- NOTE | 2022-08-09 10:59 | PGE_ITS ---
Date of Service Date of service: 08/09/22 Time of Service: 10:59 Assessment and Plan Assessment and plan (1) Acute cerebrovascular accident (CVA): Status: Acute Assessment and plan: Await MRI, neurology consult, echo. NEurochecks. NPO. PT/OT/speech. Palliative care consult. We are investigating the allergy to aspirin. Permissive hypertension. (2) Acute CHF: Status: Acute Assessment and plan: D/c IVF. Diurese. (3) Dysphagia: Status: Acute Assessment and plan: NPO. The patient was not interested in a feeding tube. The patient will be seen by palliative care. (4) Aphasia: Status: Acute Assessment and plan: Continue working with speech therapy. (5) Hypothyroidism: Status: Chronic Assessment and plan: Consider IV levothyroxine. (6) Depression with anxiety: Status: Chronic Assessment and plan: will provide prn IV lorazepam (7) Hemiparesis of right dominant side: Status: Acute Assessment and plan: PT/OT consulted (8) DVT prophylaxis: Status: Acute Assessment and plan: Will hold off of chemical DVT ppx until we know the size of the stroke. SCDs. (9) Discharge planning issues: Status: Acute Assessment and plan: Full code at this time. Palliative care consulted. Subjective Subjective Interval history since last seen: Ms Sanford failed her swallowing evaluation this morning. When I spoke to her and asked her if she was interested in a feeding tube, she had shaken her head no, which was witnessed by speech therapy and Daniella, charge nurse. The patient is not consistently answering or following commands. Nursing is concerned that the patient has been tachypneic, now requiring 2L of O2. Speech therapy is concerned about the patient's ability to clear her own secretions. She had arrived from the ER on IVF. Exam Narrative Exam Narrative: General: Tachypneic female who appears to have R-sided jemal-neglect, not moving RUE/RLE. HEENT: I am unable to evaluate extraocular movements (the patient is not looking to the right and not consistently following commands), MMM Heart: irregularly irregular rhythm, no m/r/g, tachycardic Lungs: Rales and expiratory wheezing B Abdomen: soft, nontender, nondistended Extremities: no edema BLEs Objective Last Vital Signs Temp 36.5 C 08/09/22 08:45 Pulse 117 H 08/09/22 10:52 Resp 30 H 08/09/22 08:45 BP 170/75 H 08/09/22 08:45 Pulse Ox 95 08/09/22 08:45 Laboratory Results - last 24 hr 08/08/22 08/08/22 08/08/22 20:30 20:30 20:30 WBC 7.61 RBC 3.65 L Hgb 10.8 L Hct 33.6 L MCV 92 MCH 29.6 MCHC 32.1 RDW 14.8 H Plt Count 223 MPV 10.2 Immature Gran % 0.3 Neutrophils % 62.8 Lymphocytes % 23.9 Monocytes % 9.5 Eosinophils % 3.0 Basophils % 0.5 Nucleated RBC % 0.0 Absolute Neutrophils 4.78 Absolute Lymphocytes 1.82 Absolute Monocytes 0.72 Absolute Eosinophils 0.23 Absolute Basophils 0.04 PT 10.4 INR 1.0 APTT 24.5 Sodium 140 Potassium 3.6 Chloride 106 Carbon Dioxide 27.7 Anion Gap 6.3 BUN 18 Creatinine 0.9 Est GFR (CKD-EPI 2020) 67.08 Glucose 120 H Calcium 7.9 L Magnesium 2.0 Total Bilirubin 0.4 AST 12 L ALT 9 L Alkaline Phosphatase 72 Troponin I < 50 Total Protein 6.1 L Albumin 2.7 L TSH Free T4 Urine Color Urine Clarity Urine pH Ur Specific [place] Urine Protein Urine Ketones Urine Blood Urine Nitrite Urine Bilirubin Urine Urobilinogen Ur Leukocyte Esterase Urine RBC Urine WBC Ur Epithelial Cells Urine Crystals Urine Bacteria Urine Mucus Ur Culture Indicated? Urine Glucose 08/08/22 08/09/22 08/09/22 23:57 00:14 06:00 WBC RBC Hgb Hct MCV MCH MCHC RDW Plt Count MPV Immature Gran % Neutrophils % Lymphocytes % Monocytes % Eosinophils % Basophils % Nucleated RBC % Absolute Neutrophils Absolute Lymphocytes Absolute Monocytes Absolute Eosinophils Absolute Basophils PT INR APTT Sodium Potassium Chloride Carbon Dioxide Anion Gap BUN Creatinine Est GFR (CKD-EPI 2020) Glucose Calcium Magnesium Total Bilirubin AST ALT Alkaline Phosphatase Troponin I < 50 Total Protein Albumin TSH 15.02 H Free T4 0.53 L Urine Color Yellow Urine Clarity Clear Urine pH 5.0 Ur Specific [place] <= 1.005 Urine Protein Negative Urine Ketones Negative Urine Blood Trace-intact H Urine Nitrite Positive H Urine Bilirubin Negative Urine Urobilinogen 0.2 Ur Leukocyte Esterase Negative Urine RBC 0-2 Urine WBC 0-2 Ur Epithelial Cells Rare Urine Crystals Negative Urine Bacteria Moderate Urine Mucus Negative Ur Culture Indicated? Yes Urine Glucose Negative 08/09/22 08/09/22 06:00 06:00 WBC 8.63 RBC 4.09 Hgb 12.0 Hct 37.3 MCV 91 MCH 29.3 MCHC 32.2 RDW 15.0 H Plt Count 250 MPV 10.1 Immature Gran % Neutrophils % Lymphocytes % Monocytes % Eosinophils % Basophils % Nucleated RBC % Absolute Neutrophils Absolute Lymphocytes Absolute Monocytes Absolute Eosinophils Absolute Basophils PT INR APTT Sodium 143 Potassium 4.5 Chloride 110 H Carbon Dioxide 24.5 Anion Gap 8.5 BUN 13 Creatinine 0.9 Est GFR (CKD-EPI 2020) 67.08 Glucose 103 Calcium 8.2 L Magnesium 2.0 Total Bilirubin 0.6 AST 18 ALT 16 Alkaline Phosphatase 82 Troponin I Total Protein 6.9 Albumin 3.1 L TSH Free T4 Urine Color Urine Clarity Urine pH Ur Specific [place] Urine Protein Urine Ketones Urine Blood Urine Nitrite Urine Bilirubin Urine Urobilinogen Ur Leukocyte Esterase Urine RBC Urine WBC Ur Epithelial Cells Urine Crystals Urine Bacteria Urine Mucus Ur Culture Indicated? Urine Glucose Objective Narrative Objective Narrative: Tele: sinus tach CXR: Cardiomegaly and mild CHF. Time Spent with Patient Time Spent with Patient: 35-49 minutes Time was spent: preparing to see the patient(eg.review tests), obtaining and/or reviewing separately otained hiistory, ordering medications,tests, procedures, referring, communicating with other health floor care technician, indepentently interpreting results, counseling the patient and care coordination
[2022-08-09 12:12] LABS: Lab Add On Test DONE
[2022-08-09 13:06] LABS: NT-proBNP 6730 pg/mL (<300)
[2022-08-09] MEDS: Furosemide 20 MG/2 ML VIAL IVP (13:08)
--- NOTE | 2022-08-09 14:42 | PDOC.CMIN ---
Date of service: 08/09/22 Time of Service: 14:42 Care Management Initial Assmt Initial Assessment REASON FOR HOSPITALIZATION:: CVA PREVIOUS FUNCTIONAL STATUS/SOCIAL/FAMILY SUPPORTS:: Resides in [place]; son Axel resides in [place], [place]. CURRENT FUNCTIONAL STATUS:: Recently admitted with CVA; unable to communicate at this time; CM will continue to follow. INSURANCE COVERAGE / FINANCIAL ISSUES:: Medicare Medicaid PRIMARY CARE PHYSICIAN:: Michael Morgan POTENTIAL DISCHARGE NEEDS:: Per MD Gan was not interested in a feeding tube; will be seen by palliative care. PATIENT/FAMILY EDUCATION NEEDS:: Review discharge instructions, discuss Ask Me Three. ANTICIPATED BARRIERS TO DISCHARGE:: None identified TRANSPORTATION:: Dependent on disposition PLAN:: Await MRI, neurology consult, ECHO, neurochecks, NPO, PT/OT/speech, Palliative care consult; CM following. PFSH All Active Problems (Updated 08/09/22 @ 12:28 by Alison Kowalski) Acute cerebrovascular accident (CVA) (Acute) Hyperthyroidism (Chronic) Depression with anxiety (Chronic) Tachyarrhythmia (Chronic) Acute CHF (Acute) Dysphagia (Acute) Aphasia (Acute) Hypothyroidism (Chronic) Hemiparesis of right dominant side (Acute) DVT prophylaxis (Acute) Discharge planning issues (Acute) Social History (System 08/09/22 @ 12:28 by Alison Kowalski) Smoking/Tobacco Use Status: Current every day Smoking risk assessment performed?: Yes Drug use: Never Substance use type: unknown Do you feel safe in your relationship?: Yes
--- NOTE | 2022-08-09 16:40 | PCNE_ITS ---
Date of service: 08/09/22 Time of Service: 15:45 History of Present Illness Narrative: Ms. Gan is a 76 y/o F currently admitted at [facility] 2/2 CVA; PMHx sig for hyperthyroidism, depression, anxiety, records requested from PCP office; present through visit son/[facility] Axel and JEANNIE Duval [facility] course: Elvia presented to [facility] ED 08/08 w/acute CVA, occlusion M2 branch of MCA, not candidate for TPA/thrombolytectomy, reviewed by [facility] neuro; consult SAVE ALL OPERATOR advises NPO; MRI, echo pending, neurology, PT/OT consults pending; PC consult placed to review GOC, including feeding tube placement family reports some slight improvement today compared to yesterday, w/small movements on R side, which yesterday she could not do. Elvia lives in [place], recently returning home from brief relocation to [place], she has been home for around 6 weeks. She lives alone, independent w/ADLs w/support for some instrumental ADLs, goes shopping with neighbor, goes outside to garden for brief periods, enjoys reading, her cat Miss Baylee and her two grandchildren. Her family is the most important thing to her aware that she is a full code AD previously completed in 2008, Simin provides copy Assessment and Plan Assessment and plan (1) Acute cerebrovascular accident (CVA): Status: Acute Assessment and plan: neurology consult tomorrow MRI today, ECHO today; extremely fatigued from day NPO, SAVE ALL OPERATOR following (2) Dysphagia: Status: Acute Assessment and plan: NPO f/u SAVE ALL OPERATOR eval on Tue (3) Aphasia: Status: Acute Assessment and plan: able to answer yes/no questions SAVE ALL OPERATOR recommends repeated conversations to confirm preferences; (4) Hemiparesis of right dominant side: Status: Acute Assessment and plan: PT/OT consults pending (5) Discharge planning issues: Status: Acute Assessment and plan: assisted rehab vs CM on hospice at home reviewed potential options, will continue to review/follow (6) Advance care planning: Status: Acute Assessment and plan: AD completed in 2008 reviewed, [facility] nelson Reyna, co-agent Simin; preferences to not prolong life if so sick only have weeks,days left, unconscious or unaware of surroundings w/no chance of regaining consciousness, unable to think or act for myself/won't get better; if dying would want comfort care to relieve symptoms and dying at home on hospice; she would want CPR, trial intubation, no feedint tube for any length of time, no antibiotics if terminally ill - agree at this time she is aware of surroundings, able to think for self, preference to continue LST at this time w/re-evaluation after SAVE ALL OPERATOR consult on Tue; reviewed rehabilitation vs comfort care/home on hospice, reviewed CPR if heart stops unlikely to return to previous baseline - Discussion regarding Code Status preferences - patient wants to be a Full Code - this was reviewed briefly today, as she was extremely tired from a long day, shared pt decision making to hold off on further decisions - NO feeding tube short or intermodal customer service decision made today; okay w/IVF for short t erm, will reconsider based on next few days remain hopeful for some improvement, to regain ability to swallow (7) Palliative care encounter: Status: Acute Assessment and plan: PC will continue to follow Ms. Gan, w/repeat consult later this week to continue to review ACP, including preferences for code status if heart/lungs were to stop; CM vs intermodal customer service rehab - encouraged family to spend time w/mom thinking about what is important to her, where she wants to be, etc Review of Systems Narrative: as per HPI PFSH All Active Problems (Updated 08/09/22 @ 16:48 by Roro Dexter NP) Palliative care encounter (Acute) Advance care planning (Acute) Acute cerebrovascular accident (CVA) (Acute) Hyperthyroidism (Chronic) Depression with anxiety (Chronic) Tachyarrhythmia (Chronic) Acute CHF (Acute) Dysphagia (Acute) Aphasia (Acute) Hypothyroidism (Chronic) Hemiparesis of right dominant side (Acute) DVT prophylaxis (Acute) Discharge planning issues (Acute) Social History (System 08/09/22 @ 12:28 by Alison Kowalski) Smoking/Tobacco Use Status: Current every day Smoking risk assessment performed?: Yes Drug use: Never Substance use type: unknown Do you feel safe in your relationship?: Yes Exam Narrative Exam Narrative: General: 76 y/o F, lying in hospital bed, general lean/head tilt to L side; eyes open and tracking conversation, intermittently closes eyes, appears fatigued; ill appearing HEENT: normocephalic, hearing WNL Respiratory: tachypnic w/resp even and non-distressing, w/one period of increased tachypnea w/EOL conversations, able to self soothe; audible expiratory wheeze; no coughing Psych: cooperative, unable to make speech, says um, able to answer yes/no questions 65% of time Results Last Vital Signs Temp 97.9 F 08/09/22 15:33 Pulse 115 H 08/09/22 15:33 Resp 24 08/09/22 15:33 BP 159/75 H 08/09/22 15:33 Pulse Ox 96 08/09/22 15:33 Labs 08/09/22 06:00 08/09/22 06:00 Labs: Laboratory Results - last 24 hr 08/08/22 08/08/22 08/08/22 20:30 20:30 20:30 WBC 7.61 RBC 3.65 L Hgb 10.8 L Hct 33.6 L MCV 92 MCH 29.6 MCHC 32.1 RDW 14.8 H Plt Count 223 MPV 10.2 Immature Gran % 0.3 Neutrophils % 62.8 Lymphocytes % 23.9 Monocytes % 9.5 Eosinophils % 3.0 Basophils % 0.5 Nucleated RBC % 0.0 Absolute Neutrophils 4.78 Absolute Lymphocytes 1.82 Absolute Monocytes 0.72 Absolute Eosinophils 0.23 Absolute Basophils 0.04 PT 10.4 INR 1.0 APTT 24.5 Sodium 140 Potassium 3.6 Chloride 106 Carbon Dioxide 27.7 Anion Gap 6.3 BUN 18 Creatinine 0.9 Est GFR (CKD-EPI 2020) 67.08 Glucose 120 H Calcium 7.9 L Magnesium 2.0 Total Bilirubin 0.4 AST 12 L ALT 9 L Alkaline Phosphatase 72 Troponin I < 50 NT-Pro-B Natriuret Pep Total Protein 6.1 L Albumin 2.7 L TSH Free T4 Urine Color Urine Clarity Urine pH Ur Specific [place] Urine Protein Urine Ketones Urine Blood Urine Nitrite Urine Bilirubin Urine Urobilinogen Ur Leukocyte Esterase Urine RBC Urine WBC Ur Epithelial Cells Urine Crystals Urine Bacteria Urine Mucus Ur Culture Indicated? Urine Glucose Add-On Test Request 08/08/22 08/09/22 08/09/22 23:57 00:14 06:00 WBC RBC Hgb Hct MCV MCH MCHC RDW Plt Count MPV Immature Gran % Neutrophils % Lymphocytes % Monocytes % Eosinophils % Basophils % Nucleated RBC % Absolute Neutrophils Absolute Lymphocytes Absolute Monocytes Absolute Eosinophils Absolute Basophils PT INR APTT Sodium Potassium Chloride Carbon Dioxide Anion Gap BUN Creatinine Est GFR (CKD-EPI 2020) Glucose Calcium Magnesium Total Bilirubin AST ALT Alkaline Phosphatase Troponin I < 50 NT-Pro-B Natriuret Pep Total Protein Albumin TSH 15.02 H Free T4 0.53 L Urine Color Yellow Urine Clarity Clear Urine pH 5.0 Ur Specific [place] <= 1.005 Urine Protein Negative Urine Ketones Negative Urine Blood Trace-intact H Urine Nitrite Positive H Urine Bilirubin Negative Urine Urobilinogen 0.2 Ur Leukocyte Esterase Negative Urine RBC 0-2 Urine WBC 0-2 Ur Epithelial Cells Rare Urine Crystals Negative Urine Bacteria Moderate Urine Mucus Negative Ur Culture Indicated? Yes Urine Glucose Negative Add-On Test Request 08/09/22 08/09/22 08/09/22 06:00 06:00 06:00 WBC 8.63 RBC 4.09 Hgb 12.0 Hct 37.3 MCV 91 MCH 29.3 MCHC 32.2 RDW 15.0 H Plt Count 250 MPV 10.1 Immature Gran % Neutrophils % Lymphocytes % Monocytes % Eosinophils % Basophils % Nucleated RBC % Absolute Neutrophils Absolute Lymphocytes Absolute Monocytes Absolute Eosinophils Absolute Basophils PT INR APTT Sodium 143 Potassium 4.5 Chloride 110 H Carbon Dioxide 24.5 Anion Gap 8.5 BUN 13 Creatinine 0.9 Est GFR (CKD-EPI 2020) 67.08 Glucose 103 Calcium 8.2 L Magnesium 2.0 Total Bilirubin 0.6 AST 18 ALT 16 Alkaline Phosphatase 82 Troponin I NT-Pro-B Natriuret Pep Total Protein 6.9 Albumin 3.1 L TSH Free T4 Urine Color Urine Clarity Urine pH Ur Specific [place] Urine Protein Urine Ketones Urine Blood Urine Nitrite Urine Bilirubin Urine Urobilinogen Ur Leukocyte Esterase Urine RBC Urine WBC Ur Epithelial Cells Urine Crystals Urine Bacteria Urine Mucus Ur Culture Indicated? Urine Glucose Add-On Test Request DONE 08/09/22 06:00 WBC RBC Hgb Hct MCV MCH MCHC RDW Plt Count MPV Immature Gran % Neutrophils % Lymphocytes % Monocytes % Eosinophils % Basophils % Nucleated RBC % Absolute Neutrophils Absolute Lymphocytes Absolute Monocytes Absolute Eosinophils Absolute Basophils PT INR APTT Sodium Potassium Chloride Carbon Dioxide Anion Gap BUN Creatinine Est GFR (CKD-EPI 2020) Glucose Calcium Magnesium Total Bilirubin AST ALT Alkaline Phosphatase Troponin I NT-Pro-B Natriuret Pep 6730 H Total Protein Albumin TSH Free T4 Urine Color Urine Clarity Urine pH Ur Specific [place] Urine Protein Urine Ketones Urine Blood Urine Nitrite Urine Bilirubin Urine Urobilinogen Ur Leukocyte Esterase Urine RBC Urine WBC Ur Epithelial Cells Urine Crystals Urine Bacteria Urine Mucus Ur Culture Indicated? Urine Glucose Add-On Test Request
--- NOTE | 2022-08-09 17:14 | PT.INIE ---
Date of service: 08/09/22 Time of Service: 13:04 PT Notes Visit Reasons: Acute Left CVA Physical Therapy Inpatient Initial Evaluation Date: 08/09/2022 Referring Doctor: Oziel Gipson MD PT Orders: PT CONSULT: Limited ability Precautions: Fall. Standard. Activity as tolerated. R-sided hemiparesis. Aphasic. Patient Profile/Admitting Diagnosis: Elvia is a 76-year-old R-hand dominant female admitted to the ED on 08/08/2022 due to right-sided weakness and garbledspeech. 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 PMHX: All Active Problems?(Updated 08/09/22 @ 01:39 by Oziel Gipson) Tachyarrhythmia (Chronic) Depression with anxiety (Chronic) Hyperthyroidism (Chronic) Acute cerebrovascular accident (CVA) (Acute) Social History/Home Situation: Per son and daughter who were present during evaluation, patient lives alone. She was independent with all aspects of ADLs prior to admission. Still drives. Retired nurse. Equipment Owned/DME: None Subjective: Unable to verbalize responses due to aphasia from acute CVA. Pointed to the pain sign/icon on the communication board that PT brought in for patient but was unable to point to body part that hurts. Also pointed to the icon that says hungry and thirsty but Charge Nurse Daniella clarifies that patient is NPO. Objective: General Observation: Resting in bed. IV through R UE. Telemetry monitoring in place. Son and daughter came in early in the evaluation. Some facila asymmetry noted. Mental Status: Alert and oriented as to person. Able to follow single-step commands. Was able to recognize son and daughter who came in to the room. Pain: Unable to clarify pain location and intesnisty at this time. Vital Signs: Closely monitored via tele and by nursing staff, on permissive hypertension per MD ROM: Right Upper Extremity: Able to flex at the elbow about 20 degrees. Able to abduct less than 10 degrees. Unable to bring hand to mouth. Unable to squeeze PTs two fingers. Left Upper Extremity: Shoulder Flexion WFL. Shoulder abduction WFL. Elbow flexion WFL. Wrist flexion WFL. Functional opening and closing of hand WFL. Right Lower Extremity: Able to slide heel to about 20-30 degrees of lexion at the hip and about 40 degrees at the knee. Able to dorsiflex to neutral only. Left Lower Extremity: Able to slide heel to about 50-60 degrees of flexion at the hip and about 80 degrees at the knee. Ankle WFL. Strength: Right Upper Extremity: Shoulder flexors 2-/5. Shoulder abductors 2-/5. Elbow flexors 2-/5. Elbow extensors 1/5. Egg Smeller absent. Left Upper Extremity: Shoulder flexors 4/5. Shoulder abductors 4/5. Elbow flexors 4/5. Elbow extensors 4/5. [place] strong. Right Lower Extremity: Hip flexors 2-/5. Hip abductors 2-/5. Knee flexors 2-/5. Knee extensors 2-/5. Ankle dorsiflexors 2-/5. Ankle plantarflexors 3-/5. Left Lower Extremity: Hip flexors 3-/5. Hip abductors 3-/5. Knee flexors 3-/5. Knee extensors 3-/5. Ankle dorsiflexors 4-/5. Ankle plantarflexors 4-/5. Bed Mobility/Transfers: Rolling unable HOB elevated to 45 degrees: able to tolerate Supine to sit unable Sit to supine unable Sit to stand unable Stand to sit unable Gait: Deferred for today. Will reassess tomorrow Balance: Static Sitting: Unable Dynamic Sitting: Unable Static Standing: Deferred Dynamic Standing: Deferred Special Tests: Mobility Limitations Standardized Measure [facility] 6 clicks Basic Mobility Inpatient Short Form: Raw Score: 6 CMS Score: 100% deficit Babinski: Positive on R Tone: Hypotonic on the L UE and LE Rapid Alternating movement: Unable to assess Informed Consent/Education: Patient was instructed in purpose of PT consult and plan of care. Agreeable to proceed with established PT POC to achieve personal goals. ASSESSMENT: R-sided hemiparesis with aphasia. R UE and LE hypotonic but not flaccid. R UE weaker than R LE. Patient teary-eyed during evaluation. Appears frustrated about not being able to express herself verbally. Able to follow single step commands but patient's emotional status is preventing her from fully participating in therapy. Will continue to assess mobility status tomorrow when she is more stable. Patient presents with clinical signs and symptoms consistent with current/admitting diagnoses that have resulted to mobility limitations, gait instability, generalized weakness, and overall ADL decline as demonstrated by the following impairment level findings: 1. Decreased strength to R UE/LE and L LE major muscle groups 2. Impaired sitting/standing balance 3. Impaired activity tolerance 4. Limitation of joint range of motion in R UE/LE 5. Aphasia 6. Emotional lability Impairments are contributing to the following functional limitations: 1. Decline in bed mobility skills 2. Decline in transfer skills 3. Difficulty with ambulation without assistive device and physical assistance 4. Increased completion time for mobility ADL performance 5. Increased risk for falls 6. Difficulty with managing steps alone safely Patient is assessed as a 80250 high complexity based on the following: History: 76-year-old female with past medical history as indicated above Examination: Demonstrable impairment in strength, balance, and mobility level with underlying impairments and functional limitations as exhibited above as well as deficit score of 100% utilizing the [facility] Mobility Inpatient Short Form Presentation: Evolving Decision Makin high complexity Goals: Goals X1 week 1. Supine-Sit contact guard assist 2. Sit-Supine contact guard assist 3. Sit-Stand contact guard assist 4. Stand-Sit contact guard assist with hemiwalker 5. Bed-Chair contact guard assist with hemiwalker 6. Chair-Bed contact guard assist with hemiwalker 7. Independent gait on level surface with use of hemiwalker for at least 30 feet without report of pain nor dyspnea 8. Fair static and dynamic standing balance/tolerance PLAN OF CARE/TREATMENT PLAN: -1-2x/day, 7 days/week x 1 week. -Plan of care has been reviewed with the [facility] [employer] providing the service under Physical Therapy direction. -Monitor BP during activity as patient is on permissive hypertension at this time. -PNF to R UE/LE while in bed or while at EOB (if able to tolerate) -Initiate Physical Therapy intervention for pain management as needed, strengthening, bed mobility, transfers, gait, stairs, balance training, and use of assistive device. DISCHARGE RECOMMENDATIONS: [] Home with no services [] [] Home with services [specify] [] Home with outpatient PT [] [] SNF for continued rehabilitation [] [] Long-Term Care [] [] SNF versus LTC based on ability to participate and progress [] [X] Acute stroke rehab facility vs. SNF TREATMENT CODE/TIME: 57966 x 24 minutes beginning at 13:04 PM. Thank you for the opportunity to participate in the care of this patient. Laquita Avila PT, DPT, CLT [facility] [place], [place]
[2022-08-09] MEDS: Metoprolol 5 MG/5 ML VIAL 2.5 MG IVP ×2 (18:55→22:02)
--- NOTE | 2022-08-09 19:20 | SPP_ITS ---
Date of service: 08/09/22 Time of Service: 19:20 Lyla Gan was contacted again this evening for further swallow stimulation and evalaluation, and to provide education and recommendations to patient/family as below. Elvia smiles, laughs this session. Appears with increasing attempts at speech which is largely non-content utterances (Um, but, oh, etc). Family appears receptive of recommendations and education. Objective/Assessment/Plan Objective Treatment Techniques & Outcomes: Patient will demonstrate consistent swallow initiation to limited therapeutic trials with VINEYARD TENDER and trained nursing staff & family. - Provided instruction to dip metal spoon in ice water and provide swallow stimulation 10x per 1-2 hours throughout the day tomorrow. Patinet/caregivers will be - Provided instruction to nursing and family for strict NPO status. Patient will participate in continued assessment for dysphagia and cognitive- communication. - Ongoing - Food items tested: ?? Ice: x 2 chips IDDSI 0: water x 3 tsp IDDSI 2: x2 tsp IDDSI 4: x 2 bites Oral phase: Difficulty with bolus manipulation Difficulty with a-p transport Significant Residue with mildly thick and purees, minimal oral clearance, requiring suction/wiping to clear. Pharyngeal phase: Delayed vs absent swallow initiation Reduced hyolaryngeal elevation/excursion Cough after swallow (thin liquids , ice) Comprehension: Following directions: / for Look at Y/N questions: 02/24 using Y/N resonse (nod/head shake) Patient will participate in MBSS. - Pending progress and goals of care. Assessment Patient shows improving frequency and consistency but still struggles to initiate swallow on all trials. Continues with prolonged delayed coughing and eye watering with ice and thin liquids. With thickened liquids and purees, she is unable to clear PO from her mouth. Remain NPO at this time. Provided training to nursing/family regarding rationale and instruction for swallow stimulation/neuro-reeducation using spoons dipped in cold water, as well as demonstration of communication recommendations as outlined below. Recommendations Recommendations: Communication Recommendations for Providers: ASK Y/N QUESTIONS Instruct patient to use eye gaze or close eyes for Yes to communicate as she will try to speak and this causes frustration and anxiety. Eye movements are most reliable due to motor apraxia. Stand to the LEFT of patient when communicating. Keep questions and information short and simple to minimize confusion and anxiety. Before PLAN OF CARE/PALLIATIVE/MEDICAL DECISION-MAKING instructions, ensure patient is with reliable Y/N communication by asking several easy questions with known responses (e.g., Is your name XXXX?). Include both incorrect and correct to ensure true comprehension. Dysphagia recommendations & Aspiration Precautions: STRICT NPO Perform Q2-3h oral care with swabs or suction kits. Offer frequent trials of metal spoons dipped in ice water for surface hydration/comfort and for swallow stimulation. Up to 10x per 1-2 hrs. Offer oral suction frequently to improve clearance of oral secretions. Total Time Spent: 40 min Coding Diagnoses CPT Codes ORAL FUNCTION THERAPY - 30627 ([id number])
[2022-08-09] MEDS: Aspirin 300 MG SUPP PR (22:04)
[2022-08-10] VITALS (18 sets, daily range): BP systolic 123–158; BP diastolic 58–90; PULSE 87–115; RESP 17–22; TEMP 36–37.1; O2SAT 94–97
[2022-08-10] MEDS: Metoprolol 5 MG/5 ML VIAL 2.5 MG IVP ×6 (01:40→21:43)
[2022-08-10] MEDS: Normal Saline Flush 10 ML SYR IVP ×2 (05:48→18:18)
[2022-08-10 09:55] LABS: Abs Immature Grans 0.01 10^3/uL (0.0-0.06); Absolute Basophil Count 0.05 10^3/uL (0.0-0.2); Absolute Eosinophil Count 0.19 10^3/uL (0.0-0.7); Absolute Lymphocyte Count 1.41 10^3/uL (1.2-3.4); Absolute Monocyte Count 0.73 10^3/uL (0.1-0.8); Absolute Neutrophil Count 6.19 10^3/uL (1.2-6.7); Basophils % 0.6; Eosinophils % 2.2; HCT 40.4 % (36.0-46.0); HGB 13.2 g/dL (11.2-15.7); Immature Grans % 0.1; Lymphocytes % 16.4; MCH 29.5 pg (27.0-33.0); MCHC 32.7 % (32.0-36.0); MCV 90 fL (80-95); MPV 10.3 fL (8.0-11.0); Monocytes % 8.5; Neutrophils % 72.2; Platelet Count 240 10^3/uL (130-400); RBC 4.48 10^6/uL (3.93-5.22); RDW 14.9 % (11.7-14.6); WBC 8.58 10^3/uL (4.4-10.8)
[2022-08-10 10:12] LABS: Anion Gap 8.6 mmol/L (3-11); BUN 17 mg/dL (7-18); CO2 28.4 mmol/L (21.0-32.0); CREATININE 0.9 mg/dL (0.55-1.02); Calcium 8.7 mg/dL (8.5-10.1); Chloride 105 mmol/L (98-107); Estimated GFR 67.08 (mL/min/1.73m2); Glucose 89 mg/dL (74-106); Magnesium 1.9 mg/dL (1.8-2.4); Potassium 4.1 mmol/L (3.5-5.1); Sodium 142 mmol/L (136-145); Troponin I < 50 ng/L (<or=60)
--- NOTE | 2022-08-10 10:17 | TELEFU_ITS ---
Date of service: 08/10/22 Time of Service: 10:17 Nutrition Note NOTE: Elvia admitted 08/08/22 with CVA. Remains NPO per NETWORK DESKTOP SUPPORT SPECIALIST evaluation 08/09/22, does not want PEG tube per progress notes. Will continue to follow prn. Time Spent in Nutritional Counseling and Treatment: 0
[2022-08-10 10:21] LABS: Hemoglobin A1C 5.6 % (<5.7)
--- NOTE | 2022-08-10 10:24 | W.CARDCONSUL ---
Date of service: 08/10/22 Time of Service: 10:24 Assessment and Plan Assessment and plan (1) Acute cerebrovascular accident (CVA): Status: Acute History of Present Illness History of Present Illness Chief Complaint: Stroke Narrative: This is an unfortunate 76-year-old woman who was admitted with a stroke. She has a right hemiparesis, is aphasic, cannot swallow and reportedly is refusing a feeding or NG tube. Her echocardiogram showed mild left ventricular dysfunction though assessment of this was confounded by the fact that she had multiple extrasystoles throughout the study. Reportedly she had heart failure on presentation Ideally the patient should be started on guideline directed medical therapy. This would include either an KARYNA inhibitor, angiotensin receptor mohamud or Entresto if the latter is affordable A beta-mohamud would also be recommended once heart failure is cleared. Options include carvedilol, metoprolol succinate or bisoprolol. Diuretic should be used to correct volume status Obviously options are currently limited as the patient cannot take oral medication Beyond this there are no specific cardiac recommendations other than supportive care Review of Systems Narrative: Patient was not interviewed or examined. No review of systems performed PFS All Active Problems Palliative care encounter (Acute) Advance care planning (Acute) Acute cerebrovascular accident (CVA) (Acute) Hyperthyroidism (Chronic) Depression with anxiety (Chronic) Tachyarrhythmia (Chronic) Acute CHF (Acute) Dysphagia (Acute) Aphasia (Acute) Hypothyroidism (Chronic) Hemiparesis of right dominant side (Acute) DVT prophylaxis (Acute) Discharge planning issues (Acute) Social History Smoking/Tobacco Use Status: Current every day Smoking risk assessment performed?: Yes Drug use: Never Substance use type: unknown Do you feel safe in your relationship?: Yes Exam Narrative Exam Narrative: The patient was not interviewed or examined Results Last Vital Signs Temp 36.7 C 08/10/22 07:21 Pulse 100 H 08/10/22 09:38 Resp 20 08/10/22 07:21 BP 131/62 08/10/22 09:38 Pulse Ox 97 08/10/22 09:24 Labs 08/10/22 09:42 08/10/22 09:42 Labs: Laboratory Results - last 24 hr 08/09/22 08/09/22 08/10/22 06:00 06:00 09:42 WBC RBC Hgb Hct MCV MCH MCHC RDW Plt Count MPV Immature Gran % Neutrophils % Lymphocytes % Monocytes % Eosinophils % Basophils % Nucleated RBC % Absolute Neutrophils Absolute Lymphocytes Absolute Monocytes Absolute Eosinophils Absolute Basophils Sodium 142 Potassium 4.1 Chloride 105 Carbon Dioxide 28.4 Anion Gap 8.6 BUN 17 Creatinine 0.9 Est GFR (CKD-EPI 2020) 67.08 Glucose 89 Hemoglobin A1c Calcium 8.7 Magnesium 1.9 Troponin I < 50 NT-Pro-B Natriuret Pep 6730 H Add-On Test Request DONE 08/10/22 08/10/22 09:42 09:42 WBC 8.58 RBC 4.48 Hgb 13.2 Hct 40.4 MCV 90 MCH 29.5 MCHC 32.7 RDW 14.9 H Plt Count 240 MPV 10.3 Immature Gran % 0.1 Neutrophils % 72.2 Lymphocytes % 16.4 Monocytes % 8.5 Eosinophils % 2.2 Basophils % 0.6 Nucleated RBC % 0.0 Absolute Neutrophils 6.19 Absolute Lymphocytes 1.41 Absolute Monocytes 0.73 Absolute Eosinophils 0.19 Absolute Basophils 0.05 Sodium Potassium Chloride Carbon Dioxide Anion Gap BUN Creatinine Est GFR (CKD-EPI 2020) Glucose Hemoglobin A1c 5.6 Calcium Magnesium Troponin I NT-Pro-B Natriuret Pep Add-On Test Request
[2022-08-10 10:25] LABS: Calculated LDL 153 mg/dL (<100); Cholesterol 215 mg/dL (<200); HDL Cholesterol 47 mg/dL (40-60); Triglyceride 77 mg/dL (<150)
--- NOTE | 2022-08-10 16:33 | PT.INTREAT ---
Date of service: 08/10/22 Time of Service: 09:58 PT Notes Visit Reasons: Acute Left CVA Physical Therapy Inpatient Treatment Note Date: 08/10/2022 Precautions: Fall. Standard.? Activity as tolerated.? R-sided hemiparesis.? Aphasic. Remains NPO per SUPPLY CHAIN PROGRAM MANAGER. Subjective: Verbalized okay clearly when asked if she was willing to try get out of bed this morning. Happy about how much more able she could move her arm and leg. Denies headache, chest ain, and lightheadedness throughout session. Objective: General Observation: Resting in bed.? IV through R UE.? Telemetry monitoring in place.? Son and daughter present.? Some facial asymmetry noted. Mental Status: Alert and oriented as to person.? Able to follow single-step commands.? Was able to recognize son and daughter who came in to the room. Pain: Denies Vital Signs: Closely monitored via tele and by nursing staff,? on permissive hypertension per MD Bed Mobility/Transfers: Supine to sit minimal assist of 2 Sit to stand minimal assist of 2 Stand to sit minimal assist of 2 Gait: Covered a distance of 20 feet + 20 feet using FWW requiring contact guard assist of 2 for safety, wheelchair follow by BARBARA Grace for safety. Leadership Development Manager on R walker handle adequate. Step asymmetric. Gait hemiparetic-- decreased hip and knee flexion as well as ankle DF but no circumduction at the hip. Marilia decreased. NEURO RE-ED: Facilitated R UE/LE muscle group engagement during transfers and ambulation using verbal, visual, and tactile cues. Utilized PNF techniques to re-educate movement, balance, coordination, kinesthetic sense, posture, or proprioception: D2 flexion/extension to R UE x 5 and bilateral chop/lift patterns with L thumb under R thumb x 5 to retrain basic movement patterns on hemiparetci upper extremity. Initiated R LE strengthening while reclined on chair with manual resistance provided by PT to R hip/knee flexion and extension x 5. Balance: Static Sitting: Good Dynamic Sitting: Fair Static Standing: Fair Dynamic Standing: Poor ASSESSMENT: R-side hemineglect and visual/perceptual deficits limiting ability to process visual cues. Single syllable words are beginning to be easy to verbalize compared to yesterday. Word finding remains a struggle but motor execution is getting quicker. R-sided hemiparesis with aphasia.? R UE and LE hypotonic but not flaccid.? R UE weaker than R LE.? Overall countenance much improved knowing that more family members are coming in today. Did not need a lot of help during mobility ADL performance. DISCHARGE RECOMMENDATIONS: [] ? Home with no services [] [] ? Home with services [specify] [] ? Home with outpatient PT [] [] ? SNF for continued rehabilitation [] [] ? [facility] [] [] ? SNF versus LTC based on ability to participate and progress [] [X]? Acute stroke rehab facility vs.? SNF TREATMENT CODE/TIME: 68333 x 29 minutes beginning at 9:58 AM.
--- NOTE | 2022-08-10 17:47 | W.NEUROCONSU ---
Date of service: 08/10/22 Time of Service: 17:47 Assessment and Plan Assessment and plan (1) Acute cerebrovascular accident (CVA): Status: Acute (2) Carotid stenosis, right: Status: Acute Assessment and plan: #1. Acute left frontotemporal ischemic stroke manifested by global aphasia, speech apraxia, severe dysaphagia, and a right hemiparesis.secondary to large vessel thrombosis. Work-up: -Telemetry; consider 30 day cardiac rehabilitation specialist at discharge to look for afib, however, stroke again due to M2 occlusion vs stenosis Medications: -TX ASA 300mg daily while NPO -once able to take PO, would transition to ASA 81mg daily + atorvastatin 80mg daily for secondary stroke prevention Other: -She is past 48hr, ok to slowly start lowerly BP -Physical therapy for leg weakness, gait training -Occupation therapy for upper extremity weakness, activities of daily living -Speech therapy for speech and swallow #2. Incidental R carotid stenosis. ASA+ statin as above with good BP control. Can either be followed by neurology outpatient or vascular surgery. She will need neurology follow-up after hospital stay though unclear where this will be at this time. History of Present Illness History of Present Illness Chief Complaint: stroke Narrative: Handedness: right. HPI: Ms. Sanford is a 76 year-old with hyperlipidemia, hypothyroidism, anxiety, tachyarrhythmia on metoprolol, prior syncope, significant COVID infection Feb/Mar 2022, and mood disorder. Her son Axel and JEANNIE are at bedside. Ms. Sanford lives alone. She was at her home on 08/08/22 and able to call for 911 for help - though was unintelligible on the phone. She was found down by EMS and brought to [facility] where she was admitted for stroke. She was not a candidate for tPA as it was unclear when onset was of her symptoms. [facility] was contacted and she was not a candidate for thrombectomy. Her NIHSS 28 with FSBS 132 and initial BP 168/90. She was found to have a global aphasia, speech apraxia, severe dysaphagia, and a right hemiparesis. She is currently NPO due to her dysphagia. She has declined a feeding tube. She was anti-platelet naive, currently getting TX ASA 300mg. Work-up: -CTH (08/08/22): No acute findings. I reviewed these images personally and this is my personal interpretation. -CTA head/neck (08/08/22): Severe stenosis vs occluded L MCA M2 segment. Moderate-severe R ICA stenosis. I reviewed these images personally and this is my personal interpretation. -MRI brain w/o (08/09/22): Acute L fronto-temproal wedge cortical stroke. No evidence of hemorrhage. I reviewed these images personally and this is my personal interpretation. -TTE (08/09/22): EF 40-45%. Frequent ectopy with variable wall motion and LV function. LA mildly dilated. -Labs: A1c 5.6, LDL 153; TSH 15.02, FT4 0.53, trop x2 neg -Tele: runs of Vtach, frequent PVCs, ectopy Review of Systems All systems reviewed & are unremarkable except as noted in HPI and below PFSH All Active Problems (Updated 08/10/22 @ 20:34 by Ruth Jackson MD) Carotid stenosis, right (Acute) Palliative care encounter (Acute) Advance care planning (Acute) Acute cerebrovascular accident (CVA) (Acute) Hyperthyroidism (Chronic) Depression with anxiety (Chronic) Tachyarrhythmia (Chronic) Acute CHF (Acute) Dysphagia (Acute) Aphasia (Acute) Hypothyroidism (Chronic) Hemiparesis of right dominant side (Acute) DVT prophylaxis (Acute) Discharge planning issues (Acute) Social History Smoking/Tobacco Use Status: Current every day Smoking risk assessment performed?: Yes Drug use: Never Substance use type: unknown Do you feel safe in your relationship?: Yes Visit Medication and Allergies Active Medications Generic Name Dose Route Start Last Admin Trade Name Freq PRN Reason Stop Dose Admin Al Hydrox/Mg Hydrox/Simethicone 30 ml 08/09/22 00:16 Mylanta Suspension 30 Ml Cup PO Q2H PRN PRN Aspirin 300 mg 08/09/22 22:00 08/09/22 22:04 Aspirin 300 Mg Supp TX 300 mg HS MAYKEL Administration Dimethicone/Zinc Oxide 0 gm 08/09/22 00:10 Radha Protect Cream 142 Gm Tube TP PRN PRN Docusate Sodium 100 mg 08/09/22 00:16 Docusate Sodium 100 Mg Cap PO TID PRN PRN Sodium Chloride 500 mls @ 0 mls/hr 08/09/22 00:10 Saline 500ml Bag IV PRN PRN As Directed IV Miscellaneous Supplies 1 each 08/09/22 00:15 Iv Access IV DIRECTED MAYKEL Levalbuterol HCl 1.25 mg 08/09/22 10:56 Levalbuterol 1.25 Mg/3 Ml Upd Vial UPD QID PRN PRN Lorazepam 0.5 mg 08/09/22 10:56 Lorazepam 2 Mg/Ml Vial IVP Q6H PRN PRN Magnesium Hydroxide 30 ml 08/09/22 00:16 Milk Of Magnesia 30 Ml Cup PO DAILY PRN PRN Metoprolol Tartrate 2.5 mg 08/09/22 18:00 08/10/22 15:37 Metoprolol 5 Mg/5 Ml Vial IVP 2.5 mg Q4H MAYKEL Administration Polyethylene Glycol 17 gm 08/09/22 00:16 Polyethylene Glycol 3350 17 Gm Packet PO DAILY PRN PRN Constipation Sodium Chloride 0 ml 08/09/22 00:10 08/10/22 05:48 Normal Saline Flush 10 Ml Syr IVP 10 ml PRN PRN Administration Allergies acetaminophen [From Tylenol] Allergy (Mild, Unverified 08/09/22 12:28) buspirone HCl [From BuSpar] Allergy (Mild, Unverified 08/09/22 12:28) Hives cyclobenzaprine HCl [From Flexeril] Allergy (Mild, Unverified 08/09/22 12:28) famotidine [From Pepcid] Allergy (Mild, Unverified 08/09/22 12:28) ketorolac tromethamine [From Toradol] Allergy (Mild, Unverified 08/09/22 12:28) nickel [Nickel] Allergy (Mild, Unverified 08/09/22 12:28) oxycodone HCl [From Percodan] Allergy (Mild, Unverified 08/09/22 12:28) oxycodone terephthalate [From Percodan] Allergy (Mild, Unverified 08/09/22 12:28) paroxetine HCl [From Paxil] Allergy (Mild, Unverified 08/09/22 12:28) Penicillins Allergy (Mild, Unverified 08/09/22 12:28) saccharin Allergy (Mild, Unverified 08/09/22 12:28) shellfish derived Allergy (Mild, Unverified 08/09/22 12:28) Sulfa (Sulfonamide Antibiotics) Allergy (Mild, Unverified 08/09/22 12:28) aspirin Allergy (Unknown, Unverified 08/09/22 12:28) buspirone [From BuSpar] Allergy (Unknown, Unverified 08/09/22 12:28) codeine Allergy (Unknown, Unverified 08/09/22 12:28) cyclobenzaprine [From Flexeril] Allergy (Unknown, Unverified 08/09/22 12:28) ketorolac [From Toradol] Allergy (Unknown, Unverified 08/09/22 12:28) oxycodone [From Percodan] Allergy (Unknown, Unverified 08/09/22 12:28) paroxetine [From Paxil] Allergy (Unknown, Unverified 08/09/22 12:28) red dye Allergy (Unknown, Unverified 08/09/22 12:28) codeine phosphate [From Tylenol-Codeine] Adverse Reaction (Intermediate, Unverified 08/09/22 12:28) Nausea Exam Narrative Exam Narrative: Physical Exam: Gen: Patient of apparent stated age, NAD Head and face: no facial or cranial abnormalities Neck: Supple, no meningismus, no occipital tenderness CV: irregular Resp: CTA B/L Abd: soft, nontender, nondistended Ext: No edema. No clubbing or cyanosis. No bony deformity. Neuro Exam: Language: severe global aphasia; able to follow simple commands some of the time; able to cross the midline Mental Status: AAO Speech: mild dysarthria Cranial nerves: CN II: no obvious VF defect; complicated by aphasia CN III, IV, : extraocular movements intact, no nystagmus, pupils symmetric and reactive to light CN V: face sensation intact to PP CN VII: R lower face weakness CN VIII: hearing intact bilaterally CN IX, X: unable to test due to her aphasia CN XI: unable to test due to her aphasia CN XII: protrudes tongue symmetrically Sensory: intact to PP in all extremities Motor: bulk and tone intact. Normal strength in L hemibody. Reduced FMM R>>>L. R pronator drift. 4/5 strength in RUE and RLE, stronger distally in the RLE. Apraxia? Reflexes: 2+ at the biceps, triceps, brachioradialis, patella, and achilles tendons bilaterally; toes down going bilaterally; Coordination: no ataxia Gait: not tested Results Last Vital Signs Temp 98.8 F 08/10/22 15:15 Pulse 100 H 08/10/22 16:08 Resp 17 08/10/22 15:15 BP 145/72 H 08/10/22 15:37 Pulse Ox 94 08/10/22 15:15 Labs 08/10/22 09:42 08/10/22 09:42 Labs: Laboratory Results - last 24 hr 08/10/22 08/10/22 08/10/22 09:42 09:42 09:42 WBC 8.58 RBC 4.48 Hgb 13.2 Hct 40.4 MCV 90 MCH 29.5 MCHC 32.7 RDW 14.9 H Plt Count 240 MPV 10.3 Immature Gran % 0.1 Neutrophils % 72.2 Lymphocytes % 16.4 Monocytes % 8.5 Eosinophils % 2.2 Basophils % 0.6 Nucleated RBC % 0.0 Absolute Neutrophils 6.19 Absolute Lymphocytes 1.41 Absolute Monocytes 0.73 Absolute Eosinophils 0.19 Absolute Basophils 0.05 Sodium 142 Potassium 4.1 Chloride 105 Carbon Dioxide 28.4 Anion Gap 8.6 BUN 17 Creatinine 0.9 Est GFR (CKD-EPI 2020) 67.08 Glucose 89 Hemoglobin A1c 5.6 Calcium 8.7 Magnesium 1.9 Troponin I < 50 Triglycerides Total Cholesterol LDL Cholesterol, Calc HDL Cholesterol 08/10/22 09:42 WBC RBC Hgb Hct MCV MCH MCHC RDW Plt Count MPV Immature Gran % Neutrophils % Lymphocytes % Monocytes % Eosinophils % Basophils % Nucleated RBC % Absolute Neutrophils Absolute Lymphocytes Absolute Monocytes Absolute Eosinophils Absolute Basophils Sodium Potassium Chloride Carbon Dioxide Anion Gap BUN Creatinine Est GFR (CKD-EPI 2020) Glucose Hemoglobin A1c Calcium Magnesium Troponin I Triglycerides 77 Total Cholesterol 215 H LDL Cholesterol, Calc 153 H HDL Cholesterol 47
--- NOTE | 2022-08-10 17:52 | PGE_ITS ---
Date of Service Date of service: 08/10/22 Time of Service: 17:52 Assessment and Plan Assessment and plan (1) Acute cerebrovascular accident (CVA): Assessment and plan: in the M2 territory, confirmed by MRI. Discussed with Dr Jackson. For now, continue rectal asa. Will need a WESLEY. NPO until swallow reevaluation tomorrow - she is doing so much better today that I am optimistic that she might be able to pass her swallowing eval. We are not sure if the arrhythmia could have been the cause of her stroke. PT/OT/speech consulted. Palliative care consulted. Full code. No NGT. (2) Acute CHF: Assessment and plan: LVEF is 40-45% on echo. I think she is actually dry today. I will given her 250 cc of LR at 75 cc/hr. We will get medical records from [facility] where she has had a prior cardiac workup. For now, continue beta mohamud IV. ONce able to give medications PO, would convert to PO and attempt to add jonathan/arb vs entresto. (3) Dysphagia: Assessment and plan: NPO until speech therapy reevaluation tomorrow. (4) Aphasia: Assessment and plan: Appears to be mostly expressive aphasia today, though perhaps there is a sensory deficit too. Continue working with speech therapy. (5) Hypothyroidism: Assessment and plan: Consider IV levothyroxine. (6) Depression with anxiety: Assessment and plan: prn IV lorazepam (7) Hemiparesis of right dominant side: Assessment and plan: PT/OT consulted (8) DVT prophylaxis: Assessment and plan: Continue SCDS. Will discuss chemical DVT ppx with Dr Jackson (9) Discharge planning issues: Assessment and plan: Full code at this time. Palliative care consulted. Subjective Subjective Interval history since last seen: Ms Sanford is doing quite a bit better today. She is able to move her RUE and RLE, though not as well as the left side. She is able to say some words and her son states that she has even gotten out some words. She denies dizziness, headache, CP, SOB, numbness/tingling. Her family reports that she has had episodes of low blood sugar at home, and we agreed that we would monitor that here. They are concerned she is not on IVF - I explained what had happened yesterday and that the patient had to be diuresed for CHF. We discussed the results of the echo. Met with palliative care - no feeding tube. She is hungry. Exam Narrative Exam Narrative: General: Pleasant female who does not appear to be having respiratory distress today, A&Ox1, saying some words outloud, but having an obvious word finding difficulty, able to move her R-side much better today HEENT: EOMI, MMM, no obvious neglect today Heart: irregularly irregular rhythm, no m/r/g Lungs: CTAB Abdomen: soft, nontender, nondistended Extremities: no edema BLEs, moving all 4 extremities, 3/5 strength RUE/RLE, 5/5 LUE/SAIMA Objective Last Vital Signs Temp 37.1 C 08/10/22 15:15 Pulse 100 H 08/10/22 16:08 Resp 17 08/10/22 15:15 BP 145/72 H 08/10/22 15:37 Pulse Ox 94 08/10/22 15:15 Laboratory Results - last 24 hr 08/10/22 08/10/22 08/10/22 09:42 09:42 09:42 WBC 8.58 RBC 4.48 Hgb 13.2 Hct 40.4 MCV 90 MCH 29.5 MCHC 32.7 RDW 14.9 H Plt Count 240 MPV 10.3 Immature Gran % 0.1 Neutrophils % 72.2 Lymphocytes % 16.4 Monocytes % 8.5 Eosinophils % 2.2 Basophils % 0.6 Nucleated RBC % 0.0 Absolute Neutrophils 6.19 Absolute Lymphocytes 1.41 Absolute Monocytes 0.73 Absolute Eosinophils 0.19 Absolute Basophils 0.05 Sodium 142 Potassium 4.1 Chloride 105 Carbon Dioxide 28.4 Anion Gap 8.6 BUN 17 Creatinine 0.9 Est GFR (CKD-EPI 2020) 67.08 Glucose 89 Hemoglobin A1c 5.6 Calcium 8.7 Magnesium 1.9 Troponin I < 50 Triglycerides Total Cholesterol LDL Cholesterol, Calc HDL Cholesterol 08/10/22 09:42 WBC RBC Hgb Hct MCV MCH MCHC RDW Plt Count MPV Immature Gran % Neutrophils % Lymphocytes % Monocytes % Eosinophils % Basophils % Nucleated RBC % Absolute Neutrophils Absolute Lymphocytes Absolute Monocytes Absolute Eosinophils Absolute Basophils Sodium Potassium Chloride Carbon Dioxide Anion Gap BUN Creatinine Est GFR (CKD-EPI 2020) Glucose Hemoglobin A1c Calcium Magnesium Troponin I Triglycerides 77 Total Cholesterol 215 H LDL Cholesterol, Calc 153 H HDL Cholesterol 47 Objective Narrative Objective Narrative: MRI brain: Small to moderate size area of acute infarct in the left middle cerebral artery distribution. Echo: Normal left ventricular wall thickness and chamber size.? Estimated ejection fraction is 40 to 45%.? Rhythm is notable for frequent ventricular ectopic beats, significant [id number] variation affects assessment of LV function and wall motion Normal right ventricular size and systolic function Left atrium is mildly dilated.? Right atrial size is normal Aortic valve is trileaflet with trace regurgitation Thickened mitral leaflets, moderate mitral regurgitation Normal tricuspid valve with trace to mild regurgitation Time Spent with Patient Time Spent with Patient: 35-49 minutes Time was spent: preparing to see the patient(eg.review tests), obtaining and/or reviewing separately otained hiistory, ordering medications,tests, procedures, referring, communicating with other health insurance healthcare consultant, indepentently interpreting results, counseling the patient and care coordination
[2022-08-10] MEDS: Lactated Ringers 250 ML 75 ML IV (18:19)
--- NOTE | 2022-08-10 18:39 | PT.INTREAT ---
Date of service: 08/10/22 Time of Service: 16:31 PT Notes Visit Reasons: Acute Left CVA Inpatient Physical Therapy Treatment Note [facility] Date: 08/10/22 PRECAUTIONS: Fall, standard, activity as tolerated SUBJECTIVE: Patient supine in bed, agreeable to therapy. OBJECTIVE: [] PAIN: [] BED MOBILITY/TRANSFERS Rolling L/R: [] Supine-sit: [] Sit-supine: [] Sit-stand: [] Stand-sit: [] Bed-Chair: [] Chair-bed: [] GAIT Assistive Device: [] Weight bearing: [] Assist: [] Distance: [] Deviation: [] VITALS: [] THEREX: [] STAIRS:[] ASSESSMENT: [] PLAN: [] TREATMENT CODE/TIME: []
--- NOTE | 2022-08-10 20:14 | OT.INIE ---
Occupational Therapy Notes Inpatient Occupational Therapy Evaluation Date: 08/10/22 Referring Doctor: OZIEL GIPSON OT Orders: Non urgent- limited ability Precautions: Fall, Standard, Full PATIENT PROFILE/ADMITTING DIAGNOSIS: Pt is a 76 year old female who was admitted to [facility] with the following dx of palliative care encounter, CVA, Hyperthyroidism, Depression with anxiety, tachyarrhythmia, acute CHF, dysphagia, aphasia, hemiparesis of (R) UE. Past Medical History: All Active Problems?(Updated 08/09/22 @ 01:39 by Oziel Gipson) Tachyarrhythmia (Chronic) Depression with anxiety (Chronic) Hyperthyroidism (Chronic) Acute cerebrovascular accident (CVA) (Acute) Social History/Home Situation: Pt currently has difficulty with verbal processing and communication. OT was able to ask pt yes no questions which allowed increased (I) in her verbal communication. Pt states that she was (I) at her baseline level of function. She states that she was able to perform her eating, dressing and bathing (I). Equipment owned/DME: Unable to assess SUBJECTIVE: Pt was lying in bed. She is a very pleasant 76 year old female who has difficulty verbally communicating at this time. She was able to answer yes or no questions. OBJECTIVE: General Observation: Pleasant, Lyin gin bed with (B) LE propped on pillow, able to move (B) feet into dorsiflexion and plantarflexion, (R) UE neglect Mental Status: A&Ox2 Pain: unable to assess ROM: RUE shoulder flexion limited to 100* AROM, elbow to 90+ and hand in slightly flexed digits L UE AROM WFL STRENGTH: RUE 2-/5 LUE 4/5 FUNCTIONAL MOBILITY/ADLS: BATHING max (A) set up/clean up lying in bed Bathing UE with vc and use of (L) UE pt an wash her face and (R) UE Bathing LE to mid thigh otherwise max (A) DRESSING NT GROOMING (I) with brushing hair with (L) UE BALANCE: Unable to assess d/t the fact that pt was lying in bed INFORMED CONSENT/EDUCATION: Pt instructed in purpose of OT Consult and plan of care. ASSESSMENT: Patient is a 76-year-old female referred to occupational therapy services with diagnosis of palliative care encounter, CVA, Hyperthyroidism, Depression with anxiety, tachyarrhythmia, acute CHF, dysphagia, aphasia, hemiparesis of (R) UE. Patient presents with clinical signs and symptoms consistent with dx, as demonstrated by the following impairment level findings/following functional limitations: Impairments in ADL/IDL And leisure activities, decreased verbal communication, cognitive processing, functional mobility, functional activity tolerance, decreased standing performance, (R) UE neglect with (R) UE dominant female, decreased gross and fine motor control, decreased task initiation and planning. Patient is assessed as a high 28205 complexity based on the following: History: see above Examination: see functional limitations as noted above Presentation: evolving Decision Making: high complexity GOALS Goals x1 week 1. Oral Hygiene mod (A) seated 2. Dressing mod (A) [facility] gown 3. Bathing mod (A) UE 4. Toileting Mod (A) on commode 5. Eating (I) PLAN OF CARE/TREATMENT PLAN: 1x/day, 5 days/ week x 1week Initiate Occupational Therapy Services for bathing, dressing, grooming, toileting, eating, transfer training. DISCHARGE RECOMMENDATIONS [facility] vs. SNF when medically cleared per MD. TREATMENT TIME/MINUTES/CODES 21317, 59770, 7:50 Aide Jackson OTR/[facility] [place], [place]
[2022-08-10] MEDS: Aspirin 300 MG SUPP PR (21:43)
[2022-08-11] VITALS (15 sets, daily range): BP systolic 106–155; BP diastolic 57–85; PULSE 50–108; RESP 16–19; TEMP 36.2–36.8; O2SAT 92–100
[2022-08-11] MEDS: Metoprolol 5 MG/5 ML VIAL 2.5 MG IVP ×5 (01:52→17:18)
[2022-08-11 07:36] LABS: Abs Immature Grans 0.03 10^3/uL (0.0-0.06); Absolute Basophil Count 0.05 10^3/uL (0.0-0.2); Absolute Eosinophil Count 0.29 10^3/uL (0.0-0.7); Absolute Lymphocyte Count 1.47 10^3/uL (1.2-3.4); Absolute Monocyte Count 0.82 10^3/uL (0.1-0.8); Basophils % 0.6; Eosinophils % 3.6; HCT 42.2 % (36.0-46.0); HGB 13.4 g/dL (11.2-15.7); Immature Grans % 0.4; Lymphocytes % 18.2; MCH 28.9 pg (27.0-33.0); MCHC 31.8 % (32.0-36.0); MCV 91 fL (80-95); MPV 10.7 fL (8.0-11.0); Monocytes % 10.2; Platelet Count 247 10^3/uL (130-400); RBC 4.63 10^6/uL (3.93-5.22); RDW 14.8 % (11.7-14.6); RDW-SD 49.8 fL; WBC 8.06 10^3/uL (4.4-10.8)
[2022-08-11] MEDS: Dextrose 50%-Water 25 GM/50 ML SYR IVP (07:46)
[2022-08-11 08:10] LABS: Anion Gap 11.2 mmol/L (3-11); BUN 24 mg/dL (7-18); CO2 25.8 mmol/L (21.0-32.0); CREATININE 0.8 mg/dL (0.55-1.02); Calcium 8.9 mg/dL (8.5-10.1); Chloride 102 mmol/L (98-107); Estimated GFR 77.27 (mL/min/1.73m2); Glucose 71 mg/dL (74-106); Potassium 3.9 mmol/L (3.5-5.1); Sodium 139 mmol/L (136-145)
[2022-08-11 08:39] LABS: Vitamin B12 563 pg/mL (193-986)
--- NOTE | 2022-08-11 09:59 | PGE_ITS ---
Date of Service Date of service: 08/11/22 Time of Service: 09:59 Assessment and Plan Assessment and plan (1) Acute cerebrovascular accident (CVA): Assessment and plan: in the M2 territory, confirmed by MRI. Neuro consulted For now, continue rectal asa. Echo done 40-45%, frequent PVC's, LA midly dilated, RA normal, Aortic trace regurg, mitral moderate regurg, tricuspid mild regurg Seen by speech, see their note, diet per their recommendations PT/OT/speech consulted. Palliative care consulted. Full code. No NGT. ASA and atorvastatin (2) Acute CHF: Assessment and plan: LVEF is 40-45% on echo. IVF 75 ml/h Med recs from [facility] have been requested Medications now PO, reviewed with pharmacy what can be crushed v liquid alternatives. (3) Dysphagia: Assessment and plan: See speech recommendation (4) Aphasia: Assessment and plan: Expressive aphasia continues Continue working with speech therapy. (5) Hypothyroidism: Assessment and plan: Continue home meds (6) Depression with anxiety: Assessment and plan: Lorazepam prn (7) Hemiparesis of right dominant side: Assessment and plan: PT/OT consulted (8) DVT prophylaxis: Assessment and plan: Continue SCDS. Will discuss chemical DVT ppx with Dr Jackson (9) Discharge planning issues: Assessment and plan: Full code at this time. Palliative care consulted. She would like to go to [facility] to be close to family Subjective Subjective Patient reports: no new complaints, feels better, voiding w/o difficulty (indwelling catheter), bowel movement and afebrile; denies diarrhea, nausea, vomiting or shortness of breath Interval history since last seen: Seen by speech, diet modified. Motivated to perform PT, continues to have defecits and encouraged to go to acute rehab for a short stay. She said she will think about it, but is not keen on the idea. Family has been in to visit. Exam Narrative Exam Narrative: General: Pleasant female semi fowlers in bed, alert to voice, nods head to respond HEENT: EOMI, MMM, no obvious neglect Heart: irregularly irregular rhythm, no m/r/g Lungs: CTAB Abdomen: soft, nontender, nondistended Extremities: no edema BLEs, moving all 4 extremities, 3/5 strength RUE/RLE, 5/5 LUE/SAIMA Objective Last Vital Signs Temp 36.7 C 08/11/22 07:35 Pulse 101 H 08/11/22 09:57 Resp 16 08/11/22 07:35 BP 132/70 08/11/22 09:27 Pulse Ox 100 08/11/22 07:35 Laboratory Results - last 24 hr 08/10/22 08/10/22 08/10/22 09:42 09:42 09:42 WBC 8.58 RBC 4.48 Hgb 13.2 Hct 40.4 MCV 90 MCH 29.5 MCHC 32.7 RDW 14.9 H Plt Count 240 MPV 10.3 Immature Gran % 0.1 Neutrophils % 72.2 Lymphocytes % 16.4 Monocytes % 8.5 Eosinophils % 2.2 Basophils % 0.6 Nucleated RBC % 0.0 Absolute Neutrophils 6.19 Absolute Lymphocytes 1.41 Absolute Monocytes 0.73 Absolute Eosinophils 0.19 Absolute Basophils 0.05 Sodium 142 Potassium 4.1 Chloride 105 Carbon Dioxide 28.4 Anion Gap 8.6 BUN 17 Creatinine 0.9 Est GFR (CKD-EPI 2020) 67.08 Glucose 89 Hemoglobin A1c 5.6 Calcium 8.7 Magnesium 1.9 Troponin I < 50 Triglycerides Total Cholesterol LDL Cholesterol, Calc HDL Cholesterol Vitamin B12 08/10/22 08/11/22 08/11/22 09:42 06:55 06:55 WBC RBC Hgb Hct MCV MCH MCHC RDW Plt Count MPV Immature Gran % Neutrophils % Lymphocytes % Monocytes % Eosinophils % Basophils % Nucleated RBC % Absolute Neutrophils Absolute Lymphocytes Absolute Monocytes Absolute Eosinophils Absolute Basophils Sodium 139 Potassium 3.9 Chloride 102 Carbon Dioxide 25.8 Anion Gap 11.2 H BUN 24 H Creatinine 0.8 Est GFR (CKD-EPI 2020) 77.27 Glucose 71 L Hemoglobin A1c Calcium 8.9 Magnesium 2.0 Troponin I Triglycerides 77 Total Cholesterol 215 H LDL Cholesterol, Calc 153 H HDL Cholesterol 47 Vitamin B12 563 08/11/22 06:55 WBC 8.06 RBC 4.63 Hgb 13.4 Hct 42.2 MCV 91 MCH 28.9 MCHC 31.8 L RDW 14.8 H Plt Count 247 MPV 10.7 Immature Gran % 0.4 Neutrophils % 67.0 Lymphocytes % 18.2 Monocytes % 10.2 Eosinophils % 3.6 Basophils % 0.6 Nucleated RBC % 0.0 Absolute Neutrophils 5.40 Absolute Lymphocytes 1.47 Absolute Monocytes 0.82 H Absolute Eosinophils 0.29 Absolute Basophils 0.05 Sodium Potassium Chloride Carbon Dioxide Anion Gap BUN Creatinine Est GFR (CKD-EPI 2020) Glucose Hemoglobin A1c Calcium Magnesium Troponin I Triglycerides Total Cholesterol LDL Cholesterol, Calc HDL Cholesterol Vitamin B12 Time Spent with Patient Time Spent with Patient: 35-49 minutes Time was spent: preparing to see the patient(eg.review tests), ordering medications,tests, procedures, referring, communicating with other health lawn caretaker, indepentently interpreting results, counseling the patient and care coordination
--- NOTE | 2022-08-11 10:00 | PDOC.CMPRO ---
Date of service: 08/11/22 Time of Service: 10:00 Care Management Progress Note Progress Note Text Progress Note Text: S/O: A: Elvia is a 76 year old woman admitted on 08/08/22 with an acute left CVA P:Elvia will have a PT evaluation today as well as a swallow evaluation. Disposition will be determined based on the results of those evaluations and Bridgette's clinical progress. CM will follow and assess for ongoing discharge concerns.
--- NOTE | 2022-08-11 10:10 | OTTR_ITS ---
Occupational Therapy Notes Occupational Therapy Inpatient Treatment Note Date: 08/11/22 PRECAUTIONS: Fall, standard, full SUBJECTIVE: Pt states that she is doing ok. She is able to verbally respond better today, although not speaking in full sentences she states that she would like to get washed up. OBJECTIVE: PAIN:no c/o pain FUNCTIONAL MOBILITY Rolling L/R: (I) Supine-sit: (I) Sit-supine: (I) BATHING: max (A) set up Upper Body: (I) face, (B) UE, abdomen, max (A) back, mod (A) hair Lower Body: max (A) (B) LE DRESSING: Upper Extremity: Min (A) don and doffing [facility] gown Lower Extremity: Max (A) don and doffing (B) socks TREATMENT CODES/TIME: [id number], 35 minutes (08:35) Aide Jackson OTR/[facility] [place], [place]
--- NOTE | 2022-08-11 11:09 | SPP_ITS ---
Date of service: 08/11/22 Time of Service: 11:09 Subjective Elvia was contacted at bedside this morning for continued assessment and treatment of dysphagia, apraxia, and aphasia. She was with increased verbalizations this date, even able to spontaneously say a few words but continues essentially nonverbal/nonfluent apraxic. She is agreeable to participate in all tasks as below. her family was also present at the end of the session during communication assessment. Objective/Assessment/Plan Objective Treatment Techniques & Outcomes: Patient will demonstrate consistent swallow initiation to limited therapeutic trials with INSURANCE CLAIMS CLERK and trained nursing staff & family. - Improved to 100% initiation in trials of liquids and purees this date but up to 20 seconds delay. Patient/caregivers will be independent with dysphagia/aspiration precautions and risk management strategies. - Provided instruction to nursing and family for NPO status with allowance for limited therapuetic trials. Patient will participate in continued assessment for dysphagia and cognitive- communication. - Ongoing - Auditory comprehension: Y/N questions: 90% accuracy but requires repetitions and extra time. Sequential commands: 2/10. Verbal Expression: Repetition: 1/10 without support DDK: Requires max cues (visual, simultanous model, mirror, etc, to produce Pa - no other productions stimulable (Ta, Ka, Pataka) using sound production treatment: Max simultaneous productions with visual supports, fading to intermittent visual/verbal direct model William, Alonzo, Dinh, Ah, Pa Moo Unable to produce: Eee, Ta, Ka, Reading: Able to identify single words on the page: Brain, Life, Parkinson's Comprehension: +1/3 for comprehension at sentence level using Y/N questions. Writing: Name: + Address: Partially correct Copying single words: +3/3 PO TRIALS Food items tested: ?? Ice: x2 IDDSI 0: X8 1/2 tsp, 2 straw sips IDDSI 2: x8 sip via 1/2 tsp IDDSI 4: x8 via 1/2 tsp Oral phase: Difficulty with bolus manipulation Difficulty with a-p transport Residue - improves with less viscous/dense textures & consistencies Pharyngeal phase: Delayed swallow initiation up to 20 seconds, improves with mildly thick (vs thin) liquids Reduced hyolaryngeal elevation/excursion Cough after swallow x1, difficult to associate with any given trial, very delayed. Oral-motor tasks: Improving oral apraxia: improved tongue protrusion and lateralization, facial range of motion. Continues with R sided droop, reduced ROM (facial/labial, lingual). Remains unable to coordinate volitional cough and throat clear but spontaneous cough is relatively sharp, suspect mildly weak. Patient will participate in MBSS. - To be completed this afternoon. Patient/Caregiver/Staff Education: Provided education regarding NG vs PEG tube, rationale for MBSS, current dysphagia and communication LOF and recommendations. Assessment Severe Apraxia of Speech: stimulable for CV and VC productions and single vowels that are highly visible with max SPT supports. Able to produce intermittent single words given direct visual/auditory model Bed, Brain, Aphasia: Comprehension remains poor beyond simple Y/N questions. Comprehension should not be assumed unless responses are consistent across multiple conversations. Follow recommendations below. Expressive aphasia not able to test due to severe apraxia. Dysphagia: Improving tolerance of limited trials of liquids, and purees. Improved consistency of swallow initiation, but continues with very high latency (up to 20 seconds delay). Appears with best initiation using 1/2 tsp mildly thick liquids. Also remains with poor tongue stripping for full oral clearance, though this is much improved over initial visit. Would like to perform MBSS later this date to see if she can safely tolerate any of these consistencies even with high latency of swallow response. She still wants to avoid feeding tube. Remain NPO at this time. OK TO PROVIDE 4-5 trials via 1/2 tsp of mildly thick liquids if oral care provided immediately before/after. Watch for swallow initiation and ensure mouth is clear before continuing. If patient coughs, STOP. DISCHARGE: RECOMMEND INTENSIVE ACUTE REHAB for COMMUNICATION & SWALLOWING. If patient is not agreeable, SNF or INSURANCE CLAIMS CLERK would be indicated. Plan Plan: MBSS later this date. Recommendations Recommendations: Communication Recommendations for Providers: ASK Y/N QUESTIONS Instruct patient to use eye gaze or close eyes for Yes to communicate as she will try to speak and this causes frustration and anxiety. Eye movements are most reliable due to motor apraxia. Stand to the LEFT of patient when communicating. Keep questions and information short and simple to minimize confusion and anxiety. Before PLAN OF CARE/PALLIATIVE/MEDICAL DECISION-MAKING instructions, ensure pa tient is with reliable Y/N communication by asking several easy questions with known responses (e.g., Is your name XXXX?). Include both incorrect and correct to ensure true comprehension. Dysphagia recommendations & Aspiration Precautions: REMAIN NPO, pending MBSS Perform Q2-3h oral care with swabs or suction kits. Offer mildly thick liquids therapeutic trials up to 5 trials every 2 hrs, for surface hydration/comfort and for swallow stimulation. Oral care should be done immediately before and immediately after. Offer oral suction frequently to improve clearance of oral secretions. Total Time Spent: 64658: 45 min 25066: 45 min 90 min total Coding Diagnoses CPT Codes SPEECH/HEARING THERAPY - 73674 ([id number]) ORAL FUNCTION THERAPY - 80488 ([id number])
--- NOTE | 2022-08-11 11:56 | PT.INTREAT ---
PT Notes Visit Reasons: Acute Left CVA Inpatient Physical Therapy Treatment Note [facility] Date: 08/11/22 SUBJECTIVE: Elvia is willing to get out of bed and work with me. OBJECTIVE: [] BED MOBILITY/TRANSFERS Supine-sit: I Sit-stand: CGA Stand-sit: CGA GAIT Assistive Device: FWW Weight bearing:full Assist:CGA Distance: approx 100' Deviation: needs vc for proper steering of FWW wc to follow for safety THEREX: global LE strength in recliner. SLR, hip ab/add, ankle pumps, heel slides x 10 each ASSESSMENT: tolerated session well. Could progress strengthening ex at next session PLAN: will look to continue to progress her strengthening and functional mobility to tolerance. TREATMENT CODE/TIME: 25 min. [id number], [id number]
--- NOTE | 2022-08-11 13:23 | CMPROGNOTE_ITS ---
Date of service: 08/11/22 Time of Service: 13:23 Care Management Progress Note Progress Note Text Progress Note Text: S/O: Palliative consult completed with Roro Dexter; please refer to note for more thorough information. Elvia remains inpatient s/p acute left CVA. CM continues to follow. A: 76 year old female admitted to [facility] 08/08/22 for acute left CVA P: Undetermined plan at this time; CM continues to follow.
--- NOTE | 2022-08-11 15:08 | ST.MBS ---
Date of Service Date of service: 08/11/22 Time of Service: 14:40 Modified Barium Swallow Study Findings: Video fluoroscopic Swallowing Evaluation (VFSE) / Modified Barium Swallow Study (MBSS) Speech Language Pathology Report IMPRESSIONS: Swallow safety is impaired; swallow efficiency is impaired. Moderate acute oral and pharyngo<esophageal dysphagia. Characterized by reduced tongue weakness, difficulty initiating A/P transit, and resulting in oral residue. Pharyngeal phases resulting in minimal residue and good airway protection, however, noting significant persistant esophageal stasis of solid>purees. 13mm tablet caused stasis in proximal esophagus resulting in reflux of all additional material through the UES and back into the pharynx resulting in aspiration. Required 15 minute delay to ensure tablet dissolved in esophagus, unable to transit it to the stomach immediagely. Clinical Indicator(s) of Prandial/Postprandial Aspiration include: Cough,. Suspect dysphagia presentation due to esophageal dysmotility in setting of GERD and further complicated by CVA. Patient appears to be at moderate risk for potential aspiration PNA due to reflux aspiration and/or pulmonary compromise and moderate risk for malnutrition, moderate risk for dehydration secondary to inneficiency. Diet modification is indicated; non-oral nutrition is not indicated at this time, though recommend nutrition follow patient closely to ensure good PO intake. Swallow prognosis is good-fair given: Positive prognostic factors: Severity, Time since onset (CVA), Family/caregiver support, Negative prognostic factors: Age, Time since onset (GERD), Surgical/anatomical factors, and pending patient/caregiver training in risk management as outlined, including use of trialed compensatory strategies. Patient appears to be a good candidate for behavioral swallow rehabilitation. Specialist referrals:? GI RD ? RECOMMENDATIONS: SUPERVISION: Diet Texture Recommendation:? IDDSI LEVEL SOLIDS 4-Pureed Solids or LIQUIDIZED SOLIDS LIQUIDS 0-Thin Liquids Please see further details at?[email or web address] MEDICATIONS Crushed, as able with 4-Puree Diet texture modification is per patient's preference; please adjust diet textures at patient's discretion & collaboration with care team. Do not alter medications (e.g., cut)? without advice from your MD or pharmacist. RISK MANAGEMENT: HOB upright as tolerated; upright for all PO intake. Encourage physical mobility as tolerated. Oral hygiene q4h/every 4 hours and before/after PO intake, using friction with toothbrush on all oral structures as tolerated ? Level of Assistance/Supervision: Intermittent supervision for beverages 1:1 vs intermittent for meals pending OT needs PO intake only when awake/alert? Strategies/Adaptations/Assistive Equipment: Reduce auditory and/or visual distractions when eating Provide verbal and/or visual cues to use recommended strategies Small sips and bites when eating Slow rate of intake Alternate intake of liquids and solids Small+frequent meals throughout day Posture/Positioning Needs: Maintain upright position at least 30 minutes after meals Avoid meals/snacks 2-3 hours prior to reclining/sleeping Sleep with head of bed elevated to reduce likelihood of nocturnal reflux PLAN: CHEST PAINTING AND SEALING SUPERVISOR continue to recommend Acute Inpatient Rehab. CHEST PAINTING AND SEALING SUPERVISOR will continue to follow while on unit. ----- OBJECTIVE Videofluoroscopic Swallow Evaluation (VFSE/MBSS) was conducted in the lateral[ and [id number]] projection by Speech-Language Pathologist, in collaboration with Radiologist, to evaluate oropharyngeal swallow function. Anatomic view under fluoroscopy: [WFL][Other] PO Barium Contrast Trials Oral barium water-soluble contrast was administered as follows: IDDSI Level 0 Varibar thin liquid (40% w/v) IDDSI Level 4 Varibar pudding/pureed/extremely thick (40% w/v) IDDSI Level 7 Regular Solid: 1/2 janneth cracker coated in 3 mL Varibar pudding 13 mm barium tablet taken with Extremely Thick Liquids. MBSImP Component Scores: COMPONENT Scale SCORE 1 Lip closure (0-4) 1 Resulted in interlabial escape, without progression to anterior lip 2 Hold Position (0-3) 1 Allowed bolus escape to lateral buccal cavity/floor of mouth 3 Bolus Preparation (0-4) 2 Demonstrated disorganized chewing/mashing with solid pieces of bolus unchewed 4 Bolus Transport (0-4) 2 Was with slowed tongue motion 5 Oral Residue (0-4) 2 Was a collection on oral structures 6 Swallow Initiation (0-4) 1 Occurred when the bolus head was in valleculae 7 Soft Palate Elevation (0-4) 0 Resulted in no bolus between soft palate and the pharyngeal wall 8 Laryngeal Elevation (0-3) 1 Was decreased with partial superior movement of thyroid cartilage/partial approximation of arytenoids to epiglottic petiole 9 Anterior Hyoid Motion (0-2) 0 Demonstrated complete anterior movement 10 Epiglottic Movement (0-2) 0 Resulted in complete inversion 11 Laryngeal Closure (0-2) 1 Was incomplete with narrow a column of air/contrast in laryngeal vestibule 12 Pharyngeal Stripping Wave (0-2) 0 Was present and complete 13 Pharyngeal Contraction (0-3) NA 14 PES Opening (0-3) 1 Demonstrated partial distension/partial duration, with partial obstruction of flow 15 Tongue Base Retraction (0-4) 1 Allowed a trace column of contrast or air between tongue base and pharyngeal wall 16 Pharyngeal Residue (0-4) 1 Showed a trace within or on pharyngeal structures 17 Esophageal Clearance (0-4) 3 Resulted in esophageal retention with incidence of retrograde bolus flow through the pharyngoesophageal segment Results: COMPONENT Scale SCORE 1 Oral Score (0-18) 8 2 Pharyngeal Score (0-29) 3 3 Esophageal Score (0-4) 3 Dysphagia Outcome and Severity Scale: COMPONENT Scale SCORE 1 LEVEL (1-7) 3 Full PO: Modified Diet and/or [place] - Moderate dysphagia; Total assist / Supervision or strategies 2 or more diet consistencies restricted Penetration-Aspiration Scale: COMPONENT Scale SCORE 1 Thin liquid (1-8) 7 1 AFTER THE SWALLOW, WITH REFLUX MATERIAL: Contrast entered the airway, passed below the vocal folds, and was not ejected from the trachea despite effort. BEFORE/DURING THE SWALLOW: Contrast did not enter the airway. 2 [place] thick (1-8) NA 3 Honey thick (1-8) NA 4 Pudding thick (1-8) 1 Contrast did not enter the airway 5 Cookie (1-8) 1 Contrast did not enter the airway Trialed Compensatory Strategies & Outcome: Maneuvers Successful (+) Unsuccessful (-) Postures Successful (+) Unsuccessful (-) 3 second Preparatory Set? ? +/- Chin Tuck Posture? ? Cough? ? Posterior Head tilt? Reflexive? ? + ? Cued? Throat Clear? ? Head Tilt to? Reflexive? Left? Cued? Right? ? Saliva swallow? ? - (unable to initiate) Head Turn/Rotate to? ? Supraglottic Swallow? Left? ? Super-supraglottic Swallow? Right? ? Bolus Modifications Successful (+) Unsuccessful (-) Delivery/Alternating Consistencies ? Follow with Liquid Wash + ? Follow with Solid Bolus? Delivery/Via Straw? ? +/- Reduced Volume? ? + Reduced Rate of Intake? ? + Increased Viscosity? ? +/- Other:?? ? Thank you for allowing us to take part in this patient's care. Please feel free to contact the [facility] Speech Language Pathology Department with any questions/concerns. Coding CPT Codes MOTION FLUOROSCOPY/SWALLOW - [id number] ([id number])
--- NOTE | 2022-08-11 15:10 | DI.RAD_ITS ---
Exam(s) RF MODIFIED SPEECH BA SWALLOW TECHNIQUE: Modified barium swallow was performed in conjunction with speech pathology. CONTRAST MATERIAL: Oral barium contrast was administered. COMPARISON: No exams were available for comparison FINDINGS: Note that this is not a dedicated esophagram, distal esophagus not evaluated. Examination was performed with thick and thin liquids, barium pudding, barium tablet and barium coate d cookie. Speech pathology report to follow. There was penetration of liquid during the examination. There was delayed passage of the barium tablet with resultant regurgitation and aspiration of mater ial. After 15 minutes the barium tablet passed into the stomach. IMPRESSION: Please see the above discussion for complete details. The speech pathology report is to follow. RADIATION DOSE DELIVERED: Shanekar=31.7 mGy
[2022-08-11] MEDS: Barium Sulfate 81% w/w for Oral Suspension 148 GM BTL 10 GM PO (15:22)
[2022-08-11] MEDS: Barium Sulfate 700 MG TAB PO (15:23)
[2022-08-11] MEDS: Barium Sulfate Oral Paste 40% W/V 230 ML TUBE 20 ML PO (15:24)
--- NOTE | 2022-08-11 17:21 | W.PM.PROGNOT ---
Date of Service Date of service: 08/11/22 Time of Service: 17:21 Assessment and Plan Assessment and plan (1) Acute cerebrovascular accident (CVA): Status: Acute (2) Carotid stenosis, right: Status: Acute Assessment and plan: #1. Acute left frontotemporal ischemic stroke manifested by global aphasia, speech apraxia, severe dysaphagia, and a right hemiparesis.secondary to large vessel thrombosis. Work-up: -Telemetry; consider 30 day monitoring specialist at discharge to look for afib, however, stroke again due to M2 occlusion vs stenosis Medications: -able to take crushed pills: start ASA 81mg daily + atorvastatin 80mg daily for secondary stroke prevention; no DAPT given size of stroke and now past 48hr Other: -She is past 48hr, ok to slowly start lowering BP slowly -Physical therapy for leg weakness, gait training -Occupation therapy for upper extremity weakness, activities of daily living -Speech therapy for speech and swallow -Recommend inpatient rehab if she qualifies -Monitor mood - family worried she is not getting her home medications but now she will be able to start the ones that can be crushed; monitor and treat depression/anxiety #2. Incidental R carotid stenosis. ASA+ statin as above with good BP control. Can either be followed by neurology outpatient or vascular surgery. She will need neurology follow-up after hospital stay though unclear where this will be at this time. Subjective Subjective Interval history since last seen: Ms. Sanford has had improvement in her speech today - words are coming a bit easier per notes - though she was tired for me this afternoon and still quite aphasic. Re-evaluated by ST and ok'd to start slick pureeds and thins. Able to walk around the halls with PT!. Discussed recommendations for inpatient rehab with her and her family at bedside. Exam Narrative Exam Narrative: Physical Exam: Constitutional: Patient of apparent stated age, well nourished, well developed, no acute distress Neuro: MS/Language/Speech: Alert, global aphasia - unable to cross midline today and intermittently following simple commands; able to repeat simple phrases only; mild dysarthria CN: VF appear intact; EOM appear intact; right lower face weakness Motor: Normal bulk and tone. Reduced FMM R>L. No obvious pronator drift today. 4/5 strength in RUE and RLE, stronger distally in the RLE. Complicated by apraxia? Coordination: Finger to nose performed without dysmetria Objective Last Vital Signs Temp 98.2 F 08/11/22 15:27 Pulse 106 H 08/11/22 17:18 Resp 17 08/11/22 15:27 BP 147/76 H 08/11/22 17:18 Pulse Ox 93 08/11/22 15:27 Laboratory Results - last 24 hr 08/11/22 08/11/22 08/11/22 06:55 06:55 06:55 WBC 8.06 RBC 4.63 Hgb 13.4 Hct 42.2 MCV 91 MCH 28.9 MCHC 31.8 L RDW 14.8 H Plt Count 247 MPV 10.7 Immature Gran % 0.4 Neutrophils % 67.0 Lymphocytes % 18.2 Monocytes % 10.2 Eosinophils % 3.6 Basophils % 0.6 Nucleated RBC % 0.0 Absolute Neutrophils 5.40 Absolute Lymphocytes 1.47 Absolute Monocytes 0.82 H Absolute Eosinophils 0.29 Absolute Basophils 0.05 Sodium 139 Potassium 3.9 Chloride 102 Carbon Dioxide 25.8 Anion Gap 11.2 H BUN 24 H Creatinine 0.8 Est GFR (CKD-EPI 2020) 77.27 Glucose 71 L Calcium 8.9 Magnesium 2.0 Vitamin B12 563 Time Spent with Patient Time Spent with Patient: 25-34 minutes Time was spent: preparing to see the patient(eg.review tests), referring, communicating with other health healthcare network consultant and counseling the patient
--- NOTE | 2022-08-11 17:44 | PTTR_ITS ---
Date of service: 08/11/22 Time of Service: 16:30 PT Notes Visit Reasons: Acute Left CVA Physical Therapy Inpatient Treatment Note Date: 08/11/2022 Precautions: Fall. Standard.? Activity as tolerated.? R-sided hemiparesis.? Aphasic.? Remains NPO per MECHANICAL ENGINEERING DIRECTOR. Subjective: Delighted about being yao to speak 4-5 sentences, still gets mildly frustrated when unable to finish sentences. Patient remains unsure about going to an acute rehab bur family understands the importance of early stroke rehab. Denies headache,? chest ain, and lightheadedness throughout session. Family happy about patient's progress. Patient wondered when she coul have a shower, feels that she has not had a bath for four days now (was verbalizing one through four clearly) since admission and pointed to the word wash on her board. Made charge nurse Daniella aware of said concern. Objective: General Observation: Resting in bed.? IV through R UE.? Telemetry monitoring in place.? Son and daughter present during session.? Some facial asymmetry noted. Mental Status: Alert and oriented as to person, place, and time. Able to follow single/double step commands. Pain: Denies Vital Signs: Closely monitored via tele and by nursing staff,? on permissive hypertension per MD Bed Mobility/Transfers: Supine to sit stand by assist with HOB at 30 degrees Sit to stand stand by assist Stand to sit stand by assist Gait: 250 feet using FWW with step-through gait pattern. No report of headache, chest pain, nor lightheadedness. Did not need seated rest. Marilia remains slower than PLOF. No LOB. No SOB. NEURO RE-ED: Recruited multiple B UE/LE and trunk musculature during functional tasks of si t<>stand x 5 for 2 sets while seated on bedside chair needing stand by assist only. HR went up 10 117 bpm but re-stabilized to 98 bpm after activity. Promoted diaphragmatic breathing after activity to offset fatigue. Balance: Static Sitting: Good Dynamic Sitting: Good Static Standing: Fair Dynamic Standing: Fair ASSESSMENT: Motor planning on R UE significantly improved today. Able to complete 4-5 word sentences, remains mildly frustrated when unable to complete sentence. Much more expressive with facila expressions and hand gestures during conversation. More cheerful the past couple of days because of presence of family. Highly motivated to participate in sessions. Activity tolerance improving. R UE/LE function WFL but continues to need strengthening. DISCHARGE RECOMMENDATIONS: [] ? Home with no services [] [] ? Home with services [specify] [] ? Home with outpatient PT [] [] ? SNF for continued rehabilitation [] [] ? Residential Care [] [] ? SNF versus LTC based on ability to participate and progress [] [X]? Acute stroke rehab facility vs.? SNF TREATMENT CODE/TIME: 33510 x 20 minutes, 49879 x 16 minutes beginning at 16:30 PM.
[2022-08-11] MEDS: methIMAzole 5 MG TAB 10 MG PO (20:30)
[2022-08-11] MEDS: Atorvastatin 40 MG TAB 80 MG PO (20:30)
[2022-08-11] MEDS: Refresh PLUS Eye Drops 0.4ml 1 EACH OU (20:31)
[2022-08-11] MEDS: Metoprolol 25 MG TAB PO (20:31)
--- NOTE | 2022-08-11 23:52 | NUR.NOTE ---
Nursing Note: Pt refused amitrypline medication. States I'm not going to eat that. RN clarified Do you want to take this medication? Pt states no. Provided education on medication use and schedule. Pt struggling with aphasia. Tried to provide more information. Asked patient Do you take this medication at home? Pt states No. Pt showing fingers and saying I already took and pointing to each finger on hand. Asked patient if she would like to speak with MD regarding medications. Pt states Yes. Then states I don't take...home. Clarified Are you saying you don't take many meds at home? Pt states No meds! emphatically.
[2022-08-12] VITALS (7 sets, daily range): BP systolic 116–141; BP diastolic 58–72; PULSE 87–109; RESP 16–18; TEMP 35.8–36.5; O2SAT 90–97
[2022-08-12 07:35] LABS: Anion Gap 9.1 mmol/L (3-11); BUN 25 mg/dL (7-18); CO2 25.9 mmol/L (21.0-32.0); CREATININE 0.8 mg/dL (0.55-1.02); Calcium 8.8 mg/dL (8.5-10.1); Chloride 105 mmol/L (98-107); Estimated GFR 77.27 (mL/min/1.73m2); Glucose 94 mg/dL (74-106); Potassium 3.8 mmol/L (3.5-5.1); Sodium 140 mmol/L (136-145)
[2022-08-12] MEDS: Aspirin 81 MG CHEW PO (07:48)
[2022-08-12] MEDS: methIMAzole 5 MG TAB 10 MG PO ×2 (07:48→20:55)
[2022-08-12] MEDS: Normal Saline Flush 10 ML SYR IVP (07:50)
[2022-08-12] MEDS: Metoprolol 25 MG TAB PO ×2 (07:50→21:18)
[2022-08-12] MEDS: Refresh PLUS Eye Drops 0.4ml 1 EACH OU ×2 (07:52→20:16)
--- NOTE | 2022-08-12 10:11 | PDOC.CMPRO ---
Date of service: 08/12/22 Time of Service: 10:11 Care Management Progress Note Progress Note Text Progress Note Text: S/O: Bridgette was sitting up on the side of the bed when CM met with her. She was smiling and open to conversation, albeit she had some difficulty with word finding. CM discussed the fact that referrals have been sent to [facility], [facility] and, today, to [facility] at son Axel's request. It is felt that she would benefit from acute rehab. [facility] stated that they are unable to offer a bed as she has improved to the point that she would not meet their criteria. [facility] had questions about her swallowing which were successfully answered and they are closely reviewing the referral. [facility] does not expect to complete their review until Tuesday. CM met again today with Axel and the decision was made to send referrals to some of the long-term facilities in their area. Axel feels that being close to her family is imperative if she is going to be successful with her rehabilitation. CM discussed this with Bridgette, who is in agreement. She will be provided with a list of facilities in the [facility] and CM will send referrals to those she chooses. A: 76 year old female admitted to [facility] 08/08/22 for acute left CVA P: Bridgette will likely transfer to either an acute rehab hospital or to a long-term facility for short term rehab. Referrals are pending at [facility] and [facility]. In addition, referrals will be sent to SNFs in the [facility] to allow Bridgette to be closer to her family. CM will continue to follow and support Bridgette and her discharge planning needs.
--- NOTE | 2022-08-12 13:13 | W.PM.PROGNOT ---
Date of Service Date of service: 08/12/22 Time of Service: 13:13 Assessment and Plan Assessment and plan (1) Acute cerebrovascular accident (CVA): Status: Acute (2) Depression with anxiety: Status: Chronic (3) Carotid stenosis, right: Status: Acute Assessment and plan: #1. Acute left frontotemporal ischemic stroke manifested by global aphasia, speech apraxia, severe dysaphagia, and a right hemiparesis.secondary to large vessel thrombosis. Work-up: -Telemetry; consider 30 day clinical research monitor at discharge to look for afib, however, stroke again due to M2 occlusion vs stenosis Medications: -continue ASA 81mg daily + atorvastatin 80mg daily for secondary stroke prevention; no DAPT given size of stroke and now past 48hr Other: -She is past 48hr, ok to slowly start lowering BP slowly -Physical therapy for leg weakness, gait training -Occupation therapy for upper extremity weakness, activities of daily living -Speech therapy for speech and swallow -Recommend inpatient rehab if she qualifies #2. Incidental R carotid stenosis. ASA+ statin as above with good BP control. Can either be followed by neurology outpatient or vascular surgery. #3. Tearfulness. Recommend pharmacy consult as Elvia expressing that she is not on amitritpyline. We need to find out what mood medications she was taking outpatient and re-start them to treat mood which is worsening given lack of usual medications and new stroke/with significant aphasia. Depression very common after stroke and treating her depression will improve her recovery. She will need neurology follow-up after hospital stay though unclear where this will be at this time. Family lives in [facility] so arranging follow-up there may be best for them. Subjective Subjective Interval history since last seen: Elvia was alone at bedside this afternoon. Eating lunch. Did not like the pureed pot roast but enjoying her custard and milkshake and seemed to be swallowing them without difficulty - and using her right hand to feed herself! She then became quite quite tearful. DIL earlier this week when Elvia was still NPO was concerned that she wasn't getting her mood medications. Amitriptyline was re-started last night, but Elvia refused. Not clear if she didn't want to take it, actually isn't on that medication, or didn't understand what she was being given. Exam Narrative Exam Narrative: Physical Exam: Constitutional: Patient of apparent stated age, well nourished, well developed, tearful Neuro: MS/Language/Speech: Alert, global aphasia - intermittently following simple commands; able to repeat simple phrases only; mild dysarthria CN: right lower face weakness Motor: Normal bulk and tone. Reduced FMM R>L. No pronator drift. 4/5 strength in RUE and RLE, stronger distally in the RLE. Complicated by apraxia? Coordination: Finger to nose performed without dysmetria Objective Last Vital Signs Temp 96.4 F L 08/12/22 11:03 Pulse 101 H 08/12/22 11:03 Resp 16 08/12/22 07:32 BP 118/72 08/12/22 11:03 Pulse Ox 96 08/12/22 11:03 Laboratory Results - last 24 hr 08/12/22 06:30 Sodium 140 Potassium 3.8 Chloride 105 Carbon Dioxide 25.9 Anion Gap 9.1 BUN 25 H Creatinine 0.8 Est GFR (CKD-EPI 2020) 77.27 Glucose 94 Calcium 8.8 Magnesium 2.0 Time Spent with Patient Time Spent with Patient: 25-34 minutes Time was spent: preparing to see the patient(eg.review tests), referring, communicating with other health long term care phlebotomist and counseling the patient
--- NOTE | 2022-08-12 13:52 | NUR.NOTE ---
pharmacist at [facility] in [place] confirmed that pt is taking amitriptyline as her mood stabilizer
--- NOTE | 2022-08-12 17:04 | W.PM.PROGNOT ---
Date of Service Date of service: 08/12/22 Time of Service: 17:04 Assessment and Plan Assessment and plan (1) Acute cerebrovascular accident (CVA): Status: Acute Assessment and plan: Acute left frontotemporal ischemic stroke manifested by global aphasia, speech apraxia, severe dysaphagia, and a right hemiparesis.secondary to large vessel thrombosis. ASA Plavix Neuro consult PT/OT/Speech (2) Depression with anxiety: Status: Chronic Assessment and plan: Pharmacy consulted regarding home meds. Elvia states she does not take amitryptylene. Depression is common with stroke, she needs her usual meds. Pharm consult pending. (3) Carotid stenosis, right: Status: Acute Assessment and plan: ASA+ statin as above with good BP control. Can either be followed by neurology outpatient or vascular surgery Discussed with Dr Douglass Subjective Subjective Patient reports: no new complaints, feels better, tolerating liquids well and afebrile; denies flatus, diarrhea, nausea or vomiting Interval history since last seen: Improving, up with PT walking in the jones with assistance. Exam Narrative Exam Narrative: General: Pleasant female semi fowlers in bed, alert to voice, nods head to respond HEENT: EOMI, MMM, no obvious neglect Heart: irregularly irregular rhythm, no m/r/g Lungs: CTAB Abdomen: soft, nontender, nondistended Extremities: no edema BLEs, moving all 4 extremities, 3/5 strength RUE/RLE, 5/5 LUE/SAIMA Objective Last Vital Signs Temp 36.4 C L 08/12/22 15:12 Pulse 87 08/12/22 15:12 Resp 16 08/12/22 07:32 BP 128/59 L 08/12/22 15:12 Pulse Ox 90 L 08/12/22 15:12 Laboratory Results - last 24 hr 08/12/22 06:30 Sodium 140 Potassium 3.8 Chloride 105 Carbon Dioxide 25.9 Anion Gap 9.1 BUN 25 H Creatinine 0.8 Est GFR (CKD-EPI 2020) 77.27 Glucose 94 Calcium 8.8 Magnesium 2.0 Time Spent with Patient Time Spent with Patient: 35-49 minutes Time was spent: preparing to see the patient(eg.review tests), ordering medications,tests, procedures, referring, communicating with other health out of school hours care worker, indepentently interpreting results and counseling the patient
--- NOTE | 2022-08-12 17:51 | PT.INTREAT ---
Date of service: 08/12/22 Time of Service: 11:25 PT Notes Visit Reasons: Acute Left CVA Physical Therapy Inpatient Treatment Note Date: 08/12/2022 Precautions: Fall. Standard.? Activity as tolerated.? R-sided hemiparesis.? Aphasic.? Remains NPO per [place]. Subjective: Delighted about the shower she had the previous night. Agreeable to session. Objective: General Observation: Resting in bed.? IV through R UE.? Telemetry monitoring in place.? Son and daughter present during session.? Facial asymmetry noted. Mental Status: Alert and oriented as to person,? place, and time.? Able to follow single/double step commands. Pain: Denies Vital Signs: Closely monitored via tele and by nursing staff,? on permissive hypertension per MD Bed Mobility/Transfers: Supine to sit stand by assist with HOB at 30 degrees Sit to stand stand by assist Stand to sit stand by assist Gait: 300 feet using FWW with step-through gait pattern.? No report of headache,? chest pain, nor lightheadedness.? Did not need seated rest.? Marilia remains slower than PLOF.? No LOB.? No SOB. THERA EX: Standing bilateral heel raises x 10 (while holding onto walker) Partial knee bends x 10 (while holding onto walker) Deep breathing with chest expansion exercises x 5 Balance: Static Sitting: Good Dynamic Sitting: Good Static Standing: Fair Dynamic Standing: Fair ASSESSMENT: Ability to express self verbally and with gestures continuing to improve. Activity tolerance improving. Awareness of environment increasing. Motor apraxia continues to limit motor planning/execution. DISCHARGE RECOMMENDATIONS: [] ? Home with no services [] [] ? Home with services [specify] [] ? Home with outpatient PT [] [] ? SNF for continued rehabilitation [] [] ? [facility] Care [] [] ? SNF versus LTC based on ability to participate and progress [] [X]? Acute stroke rehab facility vs.? SNF TREATMENT CODE/TIME: 92770 x 15 minutes,? 72468 x 9 minutes beginning at 11:25 AM.
[2022-08-12] MEDS: Atorvastatin 40 MG TAB 80 MG PO (20:55)
[2022-08-12] MEDS: Amitriptyline 50 MG TAB 100 MG PO (23:18)
[2022-08-13] VITALS (9 sets, daily range): BP systolic 106–139; BP diastolic 48–66; PULSE 59–100; RESP 17–18; TEMP 35.5–37; O2SAT 95–100
[2022-08-13 06:57] LABS: Abs Immature Grans 0.02 10^3/uL (0.0-0.06); Absolute Basophil Count 0.07 10^3/uL (0.0-0.2); Absolute Eosinophil Count 0.37 10^3/uL (0.0-0.7); Absolute Lymphocyte Count 1.47 10^3/uL (1.2-3.4); Absolute Monocyte Count 1.13 10^3/uL (0.1-0.8); Absolute Neutrophil Count 5.12 10^3/uL (1.2-6.7); Basophils % 0.9; Eosinophils % 4.5; HCT 41.8 % (36.0-46.0); HGB 13.5 g/dL (11.2-15.7); Immature Grans % 0.2; MCH 29.3 pg (27.0-33.0); MCHC 32.3 % (32.0-36.0); MCV 91 fL (80-95); MPV 10.5 fL (8.0-11.0); Monocytes % 13.8; Neutrophils % 62.6; Platelet Count 198 10^3/uL (130-400); RBC 4.61 10^6/uL (3.93-5.22); RDW 14.8 % (11.7-14.6); RDW-SD 48.6 fL; WBC 8.18 10^3/uL (4.4-10.8)
[2022-08-13 07:16] LABS: Anion Gap 9.4 mmol/L (3-11); BUN 28 mg/dL (7-18); CO2 25.6 mmol/L (21.0-32.0); CREATININE 0.8 mg/dL (0.55-1.02); Calcium 8.8 mg/dL (8.5-10.1); Chloride 105 mmol/L (98-107); Estimated GFR 77.27 (mL/min/1.73m2); Glucose 89 mg/dL (74-106); Potassium 3.7 mmol/L (3.5-5.1); Sodium 140 mmol/L (136-145)
[2022-08-13] MEDS: Refresh PLUS Eye Drops 0.4ml 1 EACH OU ×2 (08:51→21:56)
[2022-08-13] MEDS: methIMAzole 5 MG TAB 10 MG PO ×2 (08:51→21:55)
[2022-08-13] MEDS: Aspirin 81 MG CHEW PO (08:51)
[2022-08-13] MEDS: Metoprolol 25 MG TAB PO ×2 (08:54→21:55)
[2022-08-13] MEDS: Normal Saline Flush 10 ML SYR IVP (08:54)
--- NOTE | 2022-08-13 09:36 | PDOC.CMPRO ---
Date of service: 08/13/22 Time of Service: 09:36 Care Management Progress Note Progress Note Text Progress Note Text: S/O: Bridgette was sitting up in a chair when CM met with her. She greeted CM with a warm smile and invited CM to have a seat. Her speech continues to improve and she has been doing very well with PT. Bridgette received a bed offer from [facility] in [place] today but the family chose to decline the offer. Her only family is in the [facility] and it would mean a commute of about 3 hours. Bridgette and her family feel that it is important for her to have the close family support that she needs right now. Referrals were sent to several SNFs in the [facility] as well as [facility].CM will follow up on the referrals on Tuesday as none of the facilities accept weekend admissions. A: 76 year old female admitted to [facility] 08/08/22 for acute left CVA P: Bridgette will likely transfer to either an acute rehab hospital or to a jail facility for short term rehab. Referrals are pending at [facility] and [facility]. In addition, referrals will be sent to SNFs in the [facility] to allow Bridgette to be closer to her family. CM will continue to follow and support Bridgette and her discharge planning needs.
--- NOTE | 2022-08-13 10:05 | PT.INTREAT ---
Date of service: 08/13/22 Time of Service: 09:28 PT Notes Visit Reasons: Acute Left CVA Inpatient Physical Therapy Treatment Note [facility] Date: 08/13/22 PRECAUTIONS: Fall, standard, activity as tolerated SUBJECTIVE: Patient supine in bed, agreeable to therapy. Is able to articulate her thoughts MUCH more clearly today then the last time I saw her, although when she strings together a coherent sentence she sometimes gets excited and forgets what she's trying to say. Words are coming out fluently. OBJECTIVE: PAIN: Denies headache, body pain, dizziness. BED MOBILITY/TRANSFERS Rolling L/R: independent Supine-sit: independent Sit-supine: independent Sit-stand: standby Stand-sit: standby Bed-Chair: contact guard, but standby would have been appropriate this morning Chair-bed: contact guard, but standby would have been appropriate this omidnin GAIT Assistive Device: FWW Weight bearing: full Assist: contact guard, but standby would have been appropriate this mornin Distance: 350 feet Deviation: step length slightly asymmetrical, with left step longer than right, however, posture is good, balance looks good, step height and length are within normal limits. NEURO: Patient participated in static and dynamic standing balance training. Able to maintain static balance with feet together >30 seconds, able to resist moderate perturbations applied by therapist. Able to maintain static tandem stance for <5 seconds bilaterally. Also performed sit to stands x10 without UE support to challenge feed forward balance systems. ASSESSMENT: Patient is making remarkable gains, both physically and with expressive language. Appears in very high spirits throughout therapy session. Agreeable to work again this afternoon. PLAN: Continue global strengthening and neuromuscular reeducation per plan of care TREATMENT CODE/TIME: 16602 Gait 16 minutes, 58418 Neuro 19 minutes beginning at 9:28
--- NOTE | 2022-08-13 13:49 | CHAPLAIN ---
Elvia was up in the chair when I visited. She had family photos on a table next to her. She was pleasant and open to a conversation and had trouble coming up with words at some points. According to Care Management notes, Elvia and her family are considering rehabs near where her son lives.
--- NOTE | 2022-08-13 18:53 | W.PM.PROGNOT ---
Date of Service Date of service: 08/13/22 Time of Service: 18:53 Assessment and Plan Assessment and plan (1) Acute cerebrovascular accident (CVA): Status: Acute Assessment and plan: Acute left frontotemporal ischemic stroke manifested by global aphasia, speech apraxia, severe dysaphagia, and a right hemiparesis.secondary to large vessel thrombosis. ASA Plav[facility] Neuro has seen her PT/OT/Speech (2) Depression with anxiety: Status: Chronic Assessment and plan: Pharmacy consulted regarding home meds. Elvia states she does not take amitryptylene. Depression is common with stroke, she needs her usual meds. Pharm consult still pending. Will review with pharmacy tomorrow. (3) Carotid stenosis, right: Status: Acute Assessment and plan: ASA+ statin as above with good BP control. Can either be followed by neurology outpatient or vascular surgery Discussed with Dr Douglass Subjective Subjective Patient reports: no new complaints, tolerating liquids well, voiding w/o difficulty, bowel movement and afebrile; denies diarrhea or nausea Interval history since last seen: Elvia is awake and alert, oriented x 3, she is able to speak in slow, however full and meaningful sentences. She has occasional word finding issues and gets frustrated, but is much better than yesterday. Son visited. They are both interested in her going to [facility]. Referrals are out. She was accepted at [facility], but declined the bed. Too far from home. Exam Narrative Exam Narrative: General: Pleasant female semi fowlers in bed, alert to voice, answers yes no questions appropriately, has some word finding issues, but has improved, speaking slow sentences that are meaningful HEENT: EOMI, MMM, no obvious neglect Heart: irregularly irregular rhythm, no m/r/g Lungs: CTAB Abdomen: soft, nontender, nondistended Extremities: no edema BLEs, moving all 4 extremities, 3/5 strength RUE/RLE, 5/5 LUE/SAIMA Objective Last Vital Signs Temp 35.6 C L 08/13/22 15:47 Pulse 88 08/13/22 15:47 Resp 17 08/13/22 03:30 BP 117/53 L 08/13/22 15:47 Pulse Ox 97 08/13/22 15:47 Laboratory Results - last 24 hr 06/23/23 06/23/23 06:22 06:22 WBC 8.18 RBC 4.61 Hgb 13.5 Hct 41.8 MCV 91 MCH 29.3 MCHC 32.3 RDW 14.8 H Plt Count 198 MPV 10.5 Immature Gran % 0.2 Neutrophils % 62.6 Lymphocytes % 18.0 Monocytes % 13.8 Eosinophils % 4.5 Basophils % 0.9 Nucleated RBC % 0.0 Absolute Neutrophils 5.12 Absolute Lymphocytes 1.47 Absolute Monocytes 1.13 H Absolute Eosinophils 0.37 Absolute Basophils 0.07 Sodium 140 Potassium 3.7 Chloride 105 Carbon Dioxide 25.6 Anion Gap 9.4 BUN 28 H Creatinine 0.8 Est GFR (CKD-EPI 2020) 77.27 Glucose 89 Calcium 8.8 Magnesium 2.0 Time Spent with Patient Time Spent with Patient: 25-34 minutes Time was spent: preparing to see the patient(eg.review tests), obtaining and/or reviewing separately otained hiistory (waiting for records from [facility] & [place]), ordering medications,tests, procedures, referring, communicating with other health director of patient care, indepentently interpreting results, counseling the patient and care coordination
[2022-08-13] MEDS: Amitriptyline 50 MG TAB 100 MG PO (21:30)
[2022-08-13] MEDS: Atorvastatin 40 MG TAB 80 MG PO (21:55)
[2022-08-14] VITALS (9 sets, daily range): BP systolic 108–136; BP diastolic 42–69; PULSE 49–98; RESP 16–20; TEMP 36–36.9; O2SAT 93–98
[2022-08-14 07:40] LABS: Abs Immature Grans 0.03 10^3/uL (0.0-0.06); Absolute Basophil Count 0.07 10^3/uL (0.0-0.2); Absolute Monocyte Count 0.83 10^3/uL (0.1-0.8); Absolute Neutrophil Count 4.33 10^3/uL (1.2-6.7); Eosinophils % 4.3; HCT 40.3 % (36.0-46.0); HGB 13.2 g/dL (11.2-15.7); Immature Grans % 0.4; Lymphocytes % 20.1; MCH 29.7 pg (27.0-33.0); MCHC 32.8 % (32.0-36.0); MCV 91 fL (80-95); MPV 10.5 fL (8.0-11.0); Monocytes % 11.9; Neutrophils % 62.3; Platelet Count 198 10^3/uL (130-400); RBC 4.45 10^6/uL (3.93-5.22); RDW 14.9 % (11.7-14.6); WBC 6.96 10^3/uL (4.4-10.8)
[2022-08-14] MEDS: Metoprolol 25 MG TAB PO ×2 (07:47→21:50)
[2022-08-14] MEDS: Refresh PLUS Eye Drops 0.4ml 1 EACH OU ×2 (07:47→21:51)
[2022-08-14] MEDS: methIMAzole 5 MG TAB 10 MG PO ×2 (07:47→20:53)
[2022-08-14] MEDS: Aspirin 81 MG CHEW PO (07:48)
[2022-08-14 07:53] LABS: Anion Gap 8.6 mmol/L (3-11); BUN 30 mg/dL (7-18); CO2 27.4 mmol/L (21.0-32.0); CREATININE 0.8 mg/dL (0.55-1.02); Chloride 104 mmol/L (98-107); Estimated GFR 77.27 (mL/min/1.73m2); Glucose 96 mg/dL (74-106); Potassium 3.8 mmol/L (3.5-5.1); Sodium 140 mmol/L (136-145)
[2022-08-14 07:57] LABS: Calcium 8.9 mg/dL (8.5-10.1)
--- NOTE | 2022-08-14 10:18 | NUR.NOTE ---
this rn was notified of pt weakness with dizziness with ambulation by physical anthropologist. pt stated to wooden box maker that she was feeling fatigued and slightly dizzy. vs were assessed when pt was back in bed and presented as stable. will allow pt to rest and try physical therapy again later in the day. charge nurse notified.
--- NOTE | 2022-08-14 12:37 | PGE_ITS ---
Date of Service Date of service: 08/14/22 Time of Service: 12:37 Assessment and Plan Assessment and plan (1) Acute cerebrovascular accident (CVA): Status: Acute Assessment and plan: Acute left frontotemporal ischemic stroke manifested by global aphasia, speech apraxia, severe dysaphagia, and a right hemiparesis.secondary to large vessel thrombosis. ASA [facility]av[facility] Neuro has seen her PT/OT/Speech (2) Depression with anxiety: Status: Chronic Assessment and plan: Pharmacy consulted regarding home meds. Med records from [facility] - meds are reconcilled as of list (3) Carotid stenosis, right: Status: Acute Assessment and plan: ASA+ statin as above with good BP control. Can either be followed by neurology outpatient or vascular surgery Discussed with Dr Douglass Subjective Subjective Patient reports: no new complaints, feels better, tolerating liquids well, voiding w/o difficulty, bowel movement and afebrile; denies nausea or shortness of breath Interval history since last seen: Elvia is improving slowly, continues to have word searching difficulty but able to speak 5 word comprehendible sentence today. She is frustrated as expected when she can't find the words. She does try for somse time before rolling her eyes, smiling, and shaking her head and then moves on to something else. Goal continues to be to go to acute rehab. Son and DIL in and they are in agreement with plan. They hope she will move to their area, near [place], after her acute rehab stay. Hopefully [facility] take her at the beginning of the week. Exam Narrative Exam Narrative: General: Pleasant female semi fowlers in bed, alert to voice, answers yes no questions appropriately, has some word finding issues, continues to improve, speaking slow sentences that are meaningfu, up walking with PT HEENT: EOMI, MMM, no obvious neglect Heart: irregularly irregular rhythm, no m/r/g Lungs: CTAB Abdomen: soft, nontender, nondistended Extremities: no edema BLEs, moving all 4 extremities, 3/5 strength RUE/RLE, 5/5 LUE/SAIMA Objective Last Vital Signs Temp 36.3 C L 08/14/22 11:12 Pulse 83 08/14/22 11:12 Resp 16 08/14/22 07:11 BP 116/62 08/14/22 11:12 Pulse Ox 93 08/14/22 11:12 Laboratory Results - last 24 hr 08/14/22 08/14/22 07:20 07:20 WBC 6.96 RBC 4.45 Hgb 13.2 Hct 40.3 MCV 91 MCH 29.7 MCHC 32.8 RDW 14.9 H Plt Count 198 MPV 10.5 Immature Gran % 0.4 Neutrophils % 62.3 Lymphocytes % 20.1 Monocytes % 11.9 Eosinophils % 4.3 Basophils % 1.0 Nucleated RBC % 0.0 Absolute Neutrophils 4.33 Absolute Lymphocytes 1.40 Absolute Monocytes 0.83 H Absolute Eosinophils 0.30 Absolute Basophils 0.07 Sodium 140 Potassium 3.8 Chloride 104 Carbon Dioxide 27.4 Anion Gap 8.6 BUN 30 H Creatinine 0.8 Est GFR (CKD-EPI 2020) 77.27 Glucose 96 Calcium 8.9 Magnesium 2.0 Time Spent with Patient Time Spent with Patient: >50 minutes Time was spent: preparing to see the patient(eg.review tests), ordering medications,tests, procedures, referring, communicating with other health child care associate, indepentently interpreting results, counseling the patient and care coordination
--- NOTE | 2022-08-14 13:49 | PT.INTREAT ---
Date of service: 08/14/22 Time of Service: 09:55 PT Notes Visit Reasons: Acute Left CVA Inpatient Physical Therapy Treatment Note [facility] Date: 08/14/2022 PRECAUTIONS: Fall, standard, activity as tolerated SUBJECTIVE: Patient supine in bed, agreeable to therapy. Is able to articulate her thoughts, but having to stop to formulate what she is trying to say. Upon first entering her room she asked to wait to do her PT due to being very tired. Did not sleep well last night. Held PT session for approximately 1 hour. Patient did complain of feeling dizzy after walking out into hallway and asked to return to bed. OBJECTIVE: ? PAIN: Complained of being tired from not sleeping well last night when I arrived to room initially. Did complain of dizziness after ambulating out into hallway and asked to get back into bed. ? BED MOBILITY/TRANSFERS? Rolling L/R: independent Supine-sit: independent? Sit-supine: independent ? Sit-stand: standby? Stand-sit: standby ? GAIT? Assistive Device: FWW? Weight bearing: full Assist: contact guard? Distance:? 30 feet, did use w/c to bring patient back to her bed where she was able to transfer with walker back to bed with CGA ? Deviation: Slow but steady gait pattern ? Nurse Nicole was made aware of patient's complaints of being tired and dizziness with short walk. BP was noted at 125/71 with HR of 91 and O2 of 97% on room air once back in bed in supine. Bed alarm was set prior to leaving room. ? ASSESSMENT:?Indicated she did not sleep well last night. Held on any other activity, allowing patient to rest as per discussion with Nurse Rivera. PLAN: Continue global strengthening and neuromuscular reeducation per plan of care TREATMENT CODE/TIME: 71106 x 1, 9:55 to 10:10 (15')
[2022-08-14] MEDS: clonazePAM 0.5 MG TAB PO (20:51)
[2022-08-14] MEDS: Amitriptyline 50 MG TAB 100 MG PO (21:53)
[2022-08-15] VITALS (8 sets, daily range): BP systolic 119–128; BP diastolic 55–67; PULSE 52–104; RESP 16–18; TEMP 36.2–36.6; O2SAT 92–99
--- NOTE | 2022-08-15 | DI.CT_ITS ---
Exam(s) CT HEAD WO EXAM: CT HEAD WO CLINICAL HISTORY: Change in MS. TECHNIQUE: Imaging Protocol: Axial computed tomography images with coronal and sagittal reformatted images were created and reviewed COMPARISON: CT CT BRAIN NECK CTA from 08/08/2022 MR MR BRAIN WO from 08/09/2022 FINDINGS: Ventricles and Extra axial spaces: Normal in size and morphology for the patient's age. Hemorrhage: None. Cerebral parenchyma: Area of low attenuation now visible in the posterior left frontal lobe as seen o n prior MRI. No evidence of hemorrhage. No additional infarcts are identified. Atrophy again noted . Midline shift: None. Brainstem/Cerebellum: Normal. Calvarium: Normal. Visualized Paranasal sinuses/Mastoids: Mucous retention right maxillary sinus. Soft Tissues: Unremarkable. IMPRESSION: Subacute appearing infarct in the posterior left frontal lobe as seen on prior MRI. No new abnormalities. RADIATION DOSE DELIVERED: 820.54mGy.cm Total DLP DATA REPOSITORY: All CT scans at this facility are submitted to the National Radiology Data Registry (NRDR) Dose Index Registry (DIR) with the [employer] (A[employer]). RADIATION OPTIMIZATION: All CT scans at this facility use at least one of these dose optimization te chniques: automated exposure control; mA and/or kV adjustment per patient size (includes targeted exa ms where dose is matched to clinical indication); or iterative reconstruction.
[2022-08-15 07:10] LABS: Abs Immature Grans 0.02 10^3/uL (0.0-0.06); Absolute Basophil Count 0.07 10^3/uL (0.0-0.2); Absolute Eosinophil Count 0.29 10^3/uL (0.0-0.7); Absolute Lymphocyte Count 1.48 10^3/uL (1.2-3.4); Absolute Neutrophil Count 5.24 10^3/uL (1.2-6.7); Basophils % 0.8; Eosinophils % 3.5; HCT 41.2 % (36.0-46.0); HGB 13.4 g/dL (11.2-15.7); Immature Grans % 0.2; Lymphocytes % 17.8; MCH 29.9 pg (27.0-33.0); MCHC 32.5 % (32.0-36.0); MCV 92 fL (80-95); MPV 11.5 fL (8.0-11.0); Monocytes % 14.5; Neutrophils % 63.2; Platelet Count 214 10^3/uL (130-400); RBC 4.48 10^6/uL (3.93-5.22); RDW 14.8 % (11.7-14.6); RDW-SD 49.4 fL
[2022-08-15 07:29] LABS: Anion Gap 9.9 mmol/L (3-11); BUN 29 mg/dL (7-18); CO2 24.1 mmol/L (21.0-32.0); CREATININE 0.8 mg/dL (0.55-1.02); Calcium 8.7 mg/dL (8.5-10.1); Chloride 105 mmol/L (98-107); Estimated GFR 77.27 (mL/min/1.73m2); Glucose 88 mg/dL (74-106); Potassium 3.8 mmol/L (3.5-5.1); Sodium 139 mmol/L (136-145)
[2022-08-15] MEDS: Refresh PLUS Eye Drops 0.4ml 1 EACH OU ×3 (07:53→21:13)
[2022-08-15] MEDS: Metoprolol 25 MG TAB PO ×2 (07:53→21:11)
[2022-08-15] MEDS: Aspirin 81 MG CHEW PO (07:53)
[2022-08-15] MEDS: clonazePAM 0.5 MG TAB PO ×2 (07:54→21:10)
[2022-08-15] MEDS: methIMAzole 5 MG TAB 10 MG PO ×2 (07:54→21:10)
--- NOTE | 2022-08-15 11:16 | PT.INTREAT ---
Date of service: 08/15/22 Time of Service: 10:50 PT Notes Visit Reasons: Acute Left CVA 08/15/2022 Attempted to see patient twice this morning for PT services, sleeping the first time and when I attempted to awaken her around 10:50am she was difficult to arouse and when she finally did respond indicated she was tired and did not want to do any exercises or sit up in chair. Nurse Sharp also attempted to convince Elvia to participate in PT, but was also informed she was very tired. Denied having pain, but would not open eyes for either of us. Nurse Sharp did report lethargic behavior to doctor.
--- NOTE | 2022-08-15 12:26 | DI.VRAD_ITS ---
PROCEDURE INFORMATION: Exam: CT Head Without Contrast Exam date and time: 08/15/2022 11:56 AM Age: 76 years old Clinical indication: Altered mental status/memory loss TECHNIQUE: Imaging protocol: Computed tomography of the head without contrast. COMPARISON: MR BRAIN WO 08/09/2022 11:47 AM FINDINGS: Brain: Redemonstration of left-sided insular/frontotemporal infarction. No gross hemorrhagic conversion. Mild mass effect without midline shift Cerebral ventricles: No ventriculomegaly. Paranasal sinuses: Secretions right maxillary sinus. No fluid levels. Mastoid air cells: Visualized mastoid air cells are well aerated. Bones/joints: Unremarkable. No acute fracture. Soft tissues: Unremarkable. IMPRESSION: Evolving left MCA infarction without gross hemorrhagic conversion as previously noted on recent MRI. Dictated and Authenticated by: Braeden Bales MD. Ordering:HILARIO Pickens MD
--- NOTE | 2022-08-15 18:05 | W.PM.PROGNOT ---
Date of Service Date of service: 08/15/22 Time of Service: 18:06 Assessment and Plan Assessment and plan (1) Acute cerebrovascular accident (CVA): Status: Acute Assessment and plan: Acute left frontotemporal ischemic stroke manifested by global aphasia, speech apraxia, severe dysaphagia, and a right hemiparesis.secondary to large vessel thrombosis. Repeat CT today, stroke evolving; she was quite tired this am ASA Plavix Neuro has seen her PT/OT/Speech (2) Depression with anxiety: Status: Chronic Assessment and plan: Pharmacy consulted regarding home meds and changes made Med records from [place] - meds are reconcilled as of list (3) Carotid stenosis, right: Status: Acute Assessment and plan: ASA+ statin as above with good BP control. Can either be followed by neurology outpatient or vascular surgery Acute rehab referrals have been sent - accepted @ [facility] declined bed, would like something in [place]. Discussed with Dr Douglass Subjective Subjective Patient reports: no new complaints, tolerating liquids well, tolerating a regular diet, voiding w/o difficulty, bowel movement and afebrile; denies diarrhea, nausea, vomiting or shortness of breath Interval history since last seen: Elvia is improving, she continues to search for words, but is taking her time and knows she has to go slow and is able to mostly say a complete thought. She is feeding herself, she has no complaints. Hoping to go [facility] this [facility] for acute rehab, Exam Narrative Exam Narrative: General: Pleasant female up in a chair, alert to voice, answers yes no questions appropriately, has some word finding issues, continues to improve, speaking slow sentences that are meaningful, up walking with PT HEENT: EOMI, MMM, no obvious neglect Heart: irregularly irregular rhythm, no m/r/g Lungs: CTAB Abdomen: soft, nontender, nondistended Extremities: no edema BLEs, moving all 4 extremities, 3/5 strength RUE/RLE, 5/5 LUE/SAIMA Objective Last Vital Signs Temp 36.6 C 08/15/22 15:40 Pulse 99 H 08/15/22 15:40 Resp 18 08/15/22 15:40 BP 125/65 08/15/22 15:40 Pulse Ox 98 08/15/22 15:40 Laboratory Results - last 24 hr 08/15/22 08/15/22 06:37 06:37 WBC 8.30 RBC 4.48 Hgb 13.4 Hct 41.2 MCV 92 MCH 29.9 MCHC 32.5 RDW 14.8 H Plt Count 214 MPV 11.5 H Immature Gran % 0.2 Neutrophils % 63.2 Lymphocytes % 17.8 Monocytes % 14.5 Eosinophils % 3.5 Basophils % 0.8 Nucleated RBC % 0.0 Absolute Neutrophils 5.24 Absolute Lymphocytes 1.48 Absolute Monocytes 1.20 H Absolute Eosinophils 0.29 Absolute Basophils 0.07 Sodium 139 Potassium 3.8 Chloride 105 Carbon Dioxide 24.1 Anion Gap 9.9 BUN 29 H Creatinine 0.8 Est GFR (CKD-EPI 2020) 77.27 Glucose 88 Calcium 8.7 Magnesium 2.0 Time Spent with Patient Time Spent with Patient: 35-49 minutes Time was spent: preparing to see the patient(eg.review tests), ordering medications,tests, procedures, referring, communicating with other health child care director, indepentently interpreting results, counseling the patient and care coordination
[2022-08-15] MEDS: Amitriptyline 50 MG TAB 100 MG PO (22:01)
[2022-08-16] VITALS (9 sets, daily range): BP systolic 99–126; BP diastolic 59–79; PULSE 77–97; RESP 14–18; TEMP 36.1–37.3; O2SAT 93–100
[2022-08-16 07:17] LABS: Abs Immature Grans 0.02 10^3/uL (0.0-0.06); Absolute Basophil Count 0.05 10^3/uL (0.0-0.2); Absolute Eosinophil Count 0.23 10^3/uL (0.0-0.7); Absolute Lymphocyte Count 1.15 10^3/uL (1.2-3.4); Absolute Neutrophil Count 4.45 10^3/uL (1.2-6.7); Basophils % 0.7; Eosinophils % 3.2; HCT 42.1 % (36.0-46.0); HGB 13.4 g/dL (11.2-15.7); Immature Grans % 0.3; MCH 29.3 pg (27.0-33.0); MCHC 31.8 % (32.0-36.0); MCV 92 fL (80-95); MPV 11.6 fL (8.0-11.0); Monocytes % 18.1; Neutrophils % 61.7; Platelet Count 199 10^3/uL (130-400); RBC 4.58 10^6/uL (3.93-5.22); RDW 14.9 % (11.7-14.6); RDW-SD 50.2 fL
[2022-08-16 07:25] LABS: Anion Gap 12.5 mmol/L (3-11); BUN 28 mg/dL (7-18); CO2 23.5 mmol/L (21.0-32.0); CREATININE 0.8 mg/dL (0.55-1.02); Calcium 8.8 mg/dL (8.5-10.1); Chloride 101 mmol/L (98-107); Estimated GFR 77.27 (mL/min/1.73m2); Glucose 82 mg/dL (74-106); Potassium 3.8 mmol/L (3.5-5.1); Sodium 137 mmol/L (136-145)
[2022-08-16] MEDS: methIMAzole 5 MG TAB 10 MG PO ×2 (08:28→20:51)
[2022-08-16] MEDS: Metoprolol 25 MG TAB PO ×2 (08:28→20:51)
[2022-08-16] MEDS: Refresh PLUS Eye Drops 0.4ml 1 EACH OU ×3 (08:28→20:51)
[2022-08-16] MEDS: clonazePAM 0.5 MG TAB PO ×2 (08:28→20:52)
[2022-08-16] MEDS: Aspirin 81 MG CHEW PO (08:28)
--- NOTE | 2022-08-16 11:23 | INPN_ITS ---
Date of service: 08/16/22 Time of Service: 10:55 PT Notes Visit Reasons: Acute Left CVA Physical Therapy Inpatient Progress Note Date: 08/09/2022 Dates of Service: 08/09/2022 through 08/16/2022 Referring Doctor: Oziel Gipsno MD PT Orders: PT CONSULT: Limited ability Precautions: Fall. Standard.? Activity as tolerated.? R-sided hemiparesis.? Aphasic. Subjective: Per BARBARA Singer patient had an unwitnessed fall about half an hour before PT showed up. Nurse Casie stated that she did a neuro exam and patient appeared okay. Patient is agreeable to sitting at edge of bed and doing seated exercises. Denies headache, chest pain and lightheadedness throughout session. Did verbalize being so fatigued and wanting to rest after short session. Objective: General Observation: Resting in bed.?? Telemetry monitoring in place. Facial palsy noted. Mental Status: Alert and oriented as to person.? Able to follow single-step commands.? Pain: Denies Vital Signs: Closely monitored via tele and by nursing staff,? on permissive hypertension per . WFL as remeasured by PT and BARBARA Singer during session. ROM: Right Upper Extremity: Shoulder Flexion lacks the last 25% of AROM. Shoulder abduction lacks the last 25% of AROM. Elbow flexion WFL. Wrist flexion WFL. Functional opening and closing of hand WFL. Left Upper Extremity: Shoulder Flexion WFL. Shoulder abduction WFL. Elbow flexion WFL. Wrist flexion WFL. Functional opening and closing of hand WFL. Right Lower Extremity: Hip flexion lacks the last 25% of AROM. Hip abduction WFL. Knee flexion WFL. Ankle dorsiflexion to neutral only. Ankle plantarflexion WFL. Left Lower Extremity: Hip flexion WFL. Hip abduction WFL. Knee flexion WFL. Ankle dorsiflexion WFL. Ankle plantarflexion WFL. Strength: Right Upper Extremity: Shoulder flexors 3-/5. Shoulder abductors 3-/5. Elbow flexors 3/5. Elbow extensors 3/5. Care Coordination Manager weak but functional. Left Upper Extremity: Shoulder flexors 4/5. Shoulder abductors 4/5. Elbow flexors 4/5. Elbow extensors 4/5. Care Coordination Manager strong. Right Lower Extremity: Hip flexors 3-/5. Hip abductors 3-/5. Knee flexors 4-/5. Knee extensors 3/5. Ankle dorsiflexors 3-/5. Ankle plantarflexors 4-/5. Left Lower Extremity: Hip flexors 4/5. Hip abductors 4/5. Knee flexors 4/5. Knee extensors 4/5. Ankle dorsiflexors 4/5. Ankle plantarflexors 4/5. Bed Mobility/Transfers: Rolling minimal assist Supine to sit minimla assist with HOB at 45 degrees Sit to supine moderate assist Sit to stand deferred Stand to sit deferred Gait: Deferred for today.? Patient fell less than an hour ago and is very much fatigued. Nursing monitoring neuros and vital signs closely. NEURO RE-ED: Worked on trunk static and dynamic stability while increasing elbow, wrist, and IP extension shile seated at edge of bed. PT provided assistance with locking elbow into extension while B arms are placed behind patient in bed to hold patient up. Engaged B LE muscle groups to increase hip and knee movements while at edge of bed. Verbal and tactile cues provided to optimize head and trunk positioning in sitting. Balance: Static Sitting: Fair Dynamic Sitting: Fair Static Standing: Deferred Dynamic Standing: Deferred Special Tests: Mobility Limitations Standardized Measure [facility] 6 clicks Basic Mobility Inpatient Short Form: Raw Score: 18? CMS Score:47% deficit? ? ? Babinski: Positive on R Tone:? Increasing tone in R UE Rapid Alternating movement:? Impaired Motor apraxia: Positive Informed Consent/Education:? Patient was instructed in purpose of PT consult and plan of care. Agreeable to proceed with established PT POC to achieve personal goals. ASSESSMENT: Continued R-sided hemiparesis, motor apraxia, and aphasia limit ability of patient to safely participate in mobility ADL performance.? R UE and LE tone increasing.? Had been doing well before the weekend but Tuesday proved to be a challenge as patient was difficult to engage per ALEKSANDR Mccann's notes. Will benefit from acute stroke facility placement to address remaining symptoms. Patient presents with clinical signs and symptoms consistent with current/admitting diagnoses that have resulted to mobility limitations, gait instability, generalized weakness, and overall ADL decline as demonstrated by the following impairment level findings: 1.? Decreased strength to R UE/LE and L LE major muscle groups 2.? Impaired sitting/standing balance 3.? Impaired activity tolerance 4.? Limitation of joint range of motion in R UE/LE 5.? Expressive aphasia 6.? Motor apraxia Impairments are contributing to the following functional limitations: 1.? Decline in bed mobility skills 2.? Decline in transfer skills 3.? Difficulty with ambulation without assistive device and physical assistance 4.? Increased completion time for mobility ADL performance 5.? Increased risk for falls 6.? Difficulty with managing steps alone safely Patient is assessed as a 82275 moderate complexity based on the following: History: 76-year-old female with past medical history as indicated above Examination: Demonstrable impairment in strength, balance, and mobility level with underlying impairments and functional limitations as exhibited above as well as deficit score of 47% utilizing the [facility] Mobility Inpatient Short Form Presentation: Evolving Decision Makin moderate complexity Goals: Goals X1 week 1. Supine-Sit contact guard assist NOT MET, CONTINUE 2. Sit-Supine contact guard assist NOT MET, CONTINUE 3. Sit-Stand contact guard assist NOT MET, CONTINUE 4. Stand-Sit contact guard assist with hemiwalker NOT MET, CONTINUE. CHANGE DEVICE TO FWW 5. Bed-Chair contact guard assist with hemiwalker NOT MET, CONTINUE. CHANGE DEVICE TO FWW 6. Chair-Bed contact guard assist with hemiwalker NOT MET, CONTINUE. CHANGE DEVICE TO FWW 7. Independent gait on level surface with use of hemiwalker for at least 30 feet without report of pain nor dyspnea NOT MET, CONTINUE. CHANGE DEVICE TO FWW. PROGRESS TO 300 feet. 8. Fair static and dynamic standing balance/tolerance NOT MET, CONTINUE PLAN OF CARE/TREATMENT PLAN: -1-2x/day, 7 days/week x 1 week. -Plan of care has been reviewed with the SAFETY SITTER providing the service under Physical Therapy direction. -Monitor BP during activity as patient is on permissive hypertension at this time. -Initiate Physical Therapy intervention for strengthening, bed mobility, transfers, gait, stairs, balance training, and use of assistive device. DISCHARGE RECOMMENDATIONS: [] ? Home with no services [] [] ? Home with services [specify] [] ? Home with outpatient PT [] [] ? SNF for continued rehabilitation [] [] ? [facility] Care [] [] ? SNF versus LTC based on ability to participate and progress [] [X]? Patient will benefit from acute stroke rehab facility placement in order to address remaining impairments listed above and progress mobility level using the least restrictive device TREATMENT CODE/TIME: 27931 x 23 minutes beginning at 10:55 AM. Thank you for the opportunity to participate in the care of this patient. Laquita Avila PT, DPT, CLT [facility] [place], [place]
--- NOTE | 2022-08-16 12:08 | SPP_ITS ---
Date of service: 08/16/22 Time of Service: 12:09 Subjective Communication with Nursing staff via phone with remote PHYSICAL FITNESS TRAINER support this date. RN reports patient is improving with self-feeding; ORGANIC CHEMISTRY PROFESSOR reports she believes patient has not been coughing while eating today, and confirmed this with RN, stating patient hasn't been coughing at all, but she hasn't been eating/drinking a lot either. It sounds like she does a lot of chin tucking when she swallows, but there hasn't been any issues. Interval History: Patient has been accepted at [facility] in [place], plan to be d/c from acute services 08/17 per note. Objective/Assessment/Plan Assessment Severe Apraxia of Speech: stimulable for CV and VC productions and single vowels that are highly visible with max SPT supports.? Able to produce intermittent single words given direct visual/auditory model Bed, Brain, Aphasia:?Comprehension remains poor beyond simple Y/N questions. Comprehension should not be assumed unless responses are consistent across multiple conversations. Follow recommendations below. Expressive aphasia not able to test due to severe apraxia. Dysphagia:?Improving tolerance of thin liquids and slick (liquidized) purees with outlined precautions. Improved consistency of swallow initiation, but continues with very high latency (up to 20 seconds delay). Patient still wants to avoid feeding tube.?Has improved with self-feeding per RN report as of 08/16. Dysphagia Management Summary: - Patient appears to be at moderate risk for potential aspiration PNA due to reflux aspiration and/or pulmonary compromise and moderate risk for malnutrition, moderate risk for dehydration secondary to inefficiency. - Diet modification is indicated: SOLIDS 4-*Lyme Pureed Solids (LIQUIDIZED SOLIDS) *Ensure pureed textures are NOT dry, given esophageal dysmotility and heightened risk of aspiration without ability to clear material from trachea per most recent MBSS Add broth to every tray LIQUIDS 0-Thin Liquids - Non-oral nutrition is not indicated at this time, though recommend nutri tion follow patient closely to ensure good PO intake. ? MBSS performed on 08/11/22; Please see results from most recent MBSS below: IMPRESSIONS: Swallow safety is impaired; swallow efficiency is impaired. Moderate acute oral and pharyngo<esophageal dysphagia. Characterized by reduced tongue weakness, difficulty initiating A/P transit, and resulting in oral residue. Pharyngeal phases resulting in minimal residue and good airway protection, however, noting significant persistant esophageal stasis of solid>purees. 13mm tablet caused stasis in proximal esophagus resulting in reflux of all additional material through the UES and back into the pharynx resulting in aspiration. Required 15 minute delay to ensure tablet dissolved in esophagus, unable to transit it to the stomach immediately. *With thin liquids, AFTER THE SWALLOW, WITH REFLUX MATERIAL: Contrast entered the airway, passed below the vocal folds, and was not ejected from the trachea despite effort. Clinical Indicator(s) of Prandial/Postprandial Aspiration include: Cough Suspect dysphagia presentation due to esophageal dysmotility in setting of GERD and further complicated by CVA. Swallow prognosis?is good-fair given: Positive prognostic factors: Severity, Time since onset (CVA), Family/caregiver support,? Negative prognostic factors: Age, Time since onset (GERD), Surgical/anatomical factors, and pending patient/caregiver training?in risk management as outlined, including use of trialed compensatory strategies. Patient appears to be a good candidate for behavioral swallow rehabilitation. Specialist referrals:? GI? RD? ? Recommendations for Providers ? SOLIDS 4-*Lyme Pureed Solids (LIQUIDIZED SOLIDS) *Ensure pureed textures are NOT dry, given esophageal dysmotility and heightened risk of aspiration without ability to clear material from trachea per most recent MBSS Add broth to every tray LIQUIDS 0-Thin Liquids Please see further details at? [email or web address] MEDICATIONS Crushed, as able with 4-Puree Diet texture modification is per patient's preference; please adjust diet textures at patient's discretion & collaboration with care team. Do not alter medications (e.g., cut)? without advice from your MD or pharmacist. RISK MANAGEMENT: HOB upright as tolerated; upright for all PO intake. Encourage physical mobility as tolerated. Oral hygiene q4h/every 4 hours and before/after PO intake, using friction with toothbrush on all oral structures as tolerated ? Level of Assistance/Supervision: Intermittent supervision for beverages 1:1 vs intermittent for meals pending OT needs PO intake only when awake/alert? Strategies/Adaptations/Assistive Equipment: Reduce auditory and/or visual distractions when eating Provide verbal and/or visual cues to use recommended strategies Small sips and bites when eating Slow rate of intake Alternate intake of liquids and solids Small+frequent meals throughout day Posture/Positioning Needs: Maintain upright position at least 30 minutes after meals Avoid meals/snacks 2-3 hours prior to reclining/sleeping Sleep with head of bed elevated to reduce likelihood of nocturnal reflux Communication Recommendations for Providers: ASK Y/N QUESTIONS Instruct patient to use eye gaze or close eyes for Yes to communicate as she will try to speak and this causes frustration and anxiety. Eye movements are most reliable due to motor apraxia. Stand to the LEFT of patient when communicating. Keep questions and information short and simple to minimize confusion and anxiety. Before PLAN OF CARE/PALLIATIVE/MEDICAL DECISION-MAKING instructions, ensure patient is with reliable Y/N communication by asking several easy questions with known responses (e.g., Is your name XXXX?). Include both incorrect and correct to ensure true comprehension. Recommendations Diet: Other (Liquidized/slick pureed solids - add broth to every tray) Liquids: 0-Thin Liquids Recommendations: DISCHARGE RECOMMENDATIONS: - Recommend intensive continued skilled treatment with PHYSICAL FITNESS TRAINER in discharge setting to address both communication and swallowing. *Please refer to outlined recommendations for providers re: communication and swallowing. - Repeat MBSS (Videofluoroscopic / Modified Barium Swallow Study) or FEES (Fiberoptic Endoscopic Evaluation of Swallowing) upon discharge to identify changes in swallowing function and overall safety/further determine swallowing goals of care with PHYSICAL FITNESS TRAINER. Coding Diagnoses CPT Codes ORAL FUNCTION THERAPY - 76094 ([id number]) SPEECH/HEARING THERAPY - 81736 ([id number])
--- NOTE | 2022-08-16 13:50 | CMPROGNOTE_ITS ---
Date of service: 08/16/22 Time of Service: 13:50 Care Management Progress Note Progress Note Text Progress Note Text: S/O: Bridgette was sitting up in bed when CM met with her. She was sleepy and stated that she had not slept well. CM received a call from [facility] with a bed offer. CM discussed the offer with her son Axel and the decision was made to accept the offer. Clinically, Bridgette continues to improve. She is able to feed herself and is tolerating her diet. She did sustain an unwitnessed fall this morning, with no apparent injuries. A Ct scan of her head was done which was negative for new findings. Bridgette informed CM that she lost her balance. CM will follow. A: 76 year old female admitted to [facility] 08/08/22 for acute left CVA P: Bridgette will likely transfer to [facility] tomorrow for short term rehab. A bed offer was received and accepted today. She will likely transport via EMS and will follow up with providers at [facility] as her son would like her to remain in that area. CM will continue to follow and support Bridgette and her discharge planning needs.
--- NOTE | 2022-08-16 15:25 | PGE_ITS ---
Date of Service Date of service: 08/16/22 Time of Service: 15:25 Assessment and Plan Assessment and plan (1) Acute cerebrovascular accident (CVA): Status: Acute Assessment and plan: Acute left frontotemporal ischemic stroke manifested by global aphasia, speech apraxia, severe dysaphagia, and a right hemiparesis.secondary to large vessel thrombosis. ASA Plavix Neuro has seen her PT/OT/Speech (2) Depression with anxiety: Status: Chronic Assessment and plan: Pharmacy consulted regarding home meds and changes made Med records from [place] - meds are reconcilled as of 04/19/2022 list Med records from [facility] reviewed (3) Carotid stenosis, right: Status: Acute Assessment and plan: ASA+ statin as above with good BP control. Can either be followed by neurology outpatient or vascular surgery Acute rehab referrals have been sent - accepted @ [facility]; she agrees to go there, discussed with her son, he also agrees. She will go tomorrow am via EMS; it is too far for her to be sitting Discussed with Dr Douglass Subjective Subjective Patient reports: no new complaints, tolerating a regular diet, voiding w/o difficulty, bowel movement and afebrile; denies diarrhea, nausea, vomiting or shortness of breath Interval history since last seen: Improving slowly, is interested in acute rehab; closer to son in [place] is preferable. Exam Narrative Exam Narrative: General: Pleasant female sitting up in bed, alert to voice, answers yes no questions appropriately, has some word finding issues, continues to improve, speaking slow sentences that are meaningful, up walking with PT, motivated, feeding herself without issue HEENT: EOMI, MMM, no obvious neglect Heart: irregularly irregular rhythm, no m/r/g Lungs: CTAB Abdomen: soft, nontender, nondistended Extremities: no edema BLEs, moving all 4 extremities, 3/5 strength RUE/RLE, 5/5 LUE/SAIMA Psych Mental Status: mental status grossly normal Speech and Movement: delayed speech Mood: congruent mood Affect: normal affect Objective Last Vital Signs Temp 37.3 C 08/16/22 11:08 Pulse 77 08/16/22 11:08 Resp 18 08/16/22 11:08 BP 114/61 08/16/22 11:08 Pulse Ox 100 08/16/22 11:08 Laboratory Results - last 24 hr 08/16/22 08/16/22 06:30 06:30 WBC 7.20 RBC 4.58 Hgb 13.4 Hct 42.1 MCV 92 MCH 29.3 MCHC 31.8 L RDW 14.9 H Plt Count 199 MPV 11.6 H Immature Gran % 0.3 Neutrophils % 61.7 Lymphocytes % 16.0 Monocytes % 18.1 Eosinophils % 3.2 Basophils % 0.7 Nucleated RBC % 0.0 Absolute Neutrophils 4.45 Absolute Lymphocytes 1.15 L Absolute Monocytes 1.30 H Absolute Eosinophils 0.23 Absolute Basophils 0.05 Sodium 137 Potassium 3.8 Chloride 101 Carbon Dioxide 23.5 Anion Gap 12.5 H BUN 28 H Creatinine 0.8 Est GFR (CKD-EPI 2020) 77.27 Glucose 82 Calcium 8.8 Magnesium 2.0 Time Spent with Patient Time Spent with Patient: 25-34 minutes Time was spent: preparing to see the patient(eg.review tests), obtaining and/or reviewing separately otained hiistory, ordering medications,tests, procedures, referring, communicating with other health customer care assistant, indepentently interpreting results, counseling the patient and care coordination
--- NOTE | 2022-08-16 16:04 | PHA.REVIEW2 ---
Pharmacy Admission Review Admission Clinical Review Admission Pharmacy Review: (Updated 08/10/22 @ 20:34 by Ruth Jackson MD) Carotid stenosis, right (Acute) Palliative care encounter (Acute) Advance care planning (Acute) Acute cerebrovascular accident (CVA) (Acute) Acute CHF (Acute) Dysphagia (Acute) Aphasia (Acute) Hemiparesis of right dominant side (Acute) DVT prophylaxis (Acute) Discharge planning issues (Acute) acetaminophen [From Tylenol] Allergy (Mild, Unverified 08/09/22 12:28) buspirone HCl [From BuSpar] Allergy (Mild, Unverified 08/09/22 12:28) Hives cyclobenzaprine HCl [From Flexeril] Allergy (Mild, Unverified 08/09/22 12:28) famotidine [From Pepcid] Allergy (Mild, Unverified 08/09/22 12:28) ketorolac tromethamine [From Toradol] Allergy (Mild, Unverified 08/09/22 12:28) nickel [Nickel] Allergy (Mild, Unverified 08/09/22 12:28) oxycodone HCl [From Percodan] Allergy (Mild, Unverified 08/09/22 12:28) oxycodone terephthalate [From Percodan] Allergy (Mild, Unverified 08/09/22 12:28) paroxetine HCl [From Paxil] Allergy (Mild, Unverified 08/09/22 12:28) Penicillins Allergy (Mild, Unverified 08/09/22 12:28) saccharin Allergy (Mild, Unverified 08/09/22 12:28) shellfish derived Allergy (Mild, Unverified 08/09/22 12:28) Sulfa (Sulfonamide Antibiotics) Allergy (Mild, Unverified 08/09/22 12:28) aspirin Allergy (Unknown, Unverified 08/09/22 12:28) buspirone [From BuSpar] Allergy (Unknown, Unverified 08/09/22 12:28) codeine Allergy (Unknown, Unverified 08/09/22 12:28) cyclobenzaprine [From Flexeril] Allergy (Unknown, Unverified 08/09/22 12:28) ketorolac [From Toradol] Allergy (Unknown, Unverified 08/09/22 12:28) oxycodone [From Percodan] Allergy (Unknown, Unverified 08/09/22 12:28) paroxetine [From Paxil] Allergy (Unknown, Unverified 08/09/22 12:28) red dye Allergy (Unknown, Unverified 08/09/22 12:28) codeine phosphate [From Tylenol-Codeine] Adverse Reaction (Intermediate, Unverified 08/09/22 12:28) Nausea Resuscitation Status Full Code Weight 58.6 kg Pharmacy Admission Review Renal Dosing Renal Dosing: BUN 28 mg/dL (7-18) H 08/16/22 06:30 Creatinine 0.8 mg/dL (0.55-1.02) 08/16/22 06:30 Medications needing adjustments: Reviewed (crcl ~45, no adjustments needed) Anticoagulation Anticoagulation: Hgb 13.4 g/dL (11.2-15.7) 08/16/22 06:30 Hct 42.1 % (36.0-46.0) 08/16/22 06:30 Plt Count 199 10^3/uL (130-400) 08/16/22 06:30 INR 1.0 (0.9-1.1) 08/08/22 20:30 Creatinine 0.8 mg/dL (0.55-1.02) 08/16/22 06:30 DVT Prophylaxis: Reviewed (SCD's) Therapeutic Anticoagulation: Reviewed (ASA +statin(new) for carotid stenosis) Opiate Usage Evaluate Pain Scale/Pains Meds: N/A (not on any opiates) Relevant Labs Relevant Labs: Sodium 137 mmol/L (136-145) 08/16/22 06:30 Potassium 3.8 mmol/L (3.5-5.1) 08/16/22 06:30 Chloride 101 mmol/L (98-107) 08/16/22 06:30 Magnesium 2.0 mg/dL (1.8-2.4) 08/16/22 06:30 Electrolytes, C-Reactive P, ESR: Reviewed DM Control Insulin Dosing: N/A Cardiac Review Cardiac Review: Troponin I < 50 ng/L (<or=60) 08/10/22 09:42 NT-Pro-B Natriuret Pep 6730 pg/mL (<300) H 08/09/22 06:00 EF%, KARYNA's, B-Blockers, Diuretics: Reviewed (metoprolol succ 50 mg daily - subbed to metoprolol tartrate 25 mg BID to be able to be crushed. ?add karyna/arb) QTc Review If Elevated: Reviewed (QTc = 516 on 08/08/22) IV to PO Switch IV Medications: N/A Home Meds Home Med List reviewed: Reviewed Current Meds Current Medication Order Review: Reviewed
--- NOTE | 2022-08-16 17:05 | PT.INTREAT ---
Date of service: 08/16/22 Time of Service: 16:54 PT Notes Visit Reasons: Acute Left CVA Inpatient Physical Therapy Treatment Note [facility] Date: 08/16/22 PRECAUTIONS: Fall, standard, activity as tolerated SUBJECTIVE: Patient tearful, declines ambulation, agreeable to practicing bed mobility. Reports anxiety about going to a SNF. OBJECTIVE: PAIN: none reported BED MOBILITY/TRANSFERS Rolling L/R: independent Supine-sit: standby with verbal cues for limb placement, head of bed slightly elevated. Sit-supine: standby with verbal, tactile cues to maneuver up towards head board. ASSESSMENT: Patient tolerates therapy well, is sitting upright in bed at end of session for supper. PLAN: continue strengthening per plan of care TREATMENT CODE/TIME: 77491 Ther Act 10 minutes beginning at 16:54
[2022-08-16] MEDS: Atorvastatin 40 MG TAB 80 MG PO (20:52)
[2022-08-16] MEDS: Amitriptyline 50 MG TAB 100 MG PO (20:52)
[2022-08-17 04:08] VITALS: BP 117/74; PULSE 80; RESP 18; TEMP 36; O2SAT 94
[2022-08-17 06:47] LABS: Abs Immature Grans 0.02 10^3/uL (0.0-0.06); Absolute Basophil Count 0.04 10^3/uL (0.0-0.2); Absolute Eosinophil Count 0.17 10^3/uL (0.0-0.7); Absolute Lymphocyte Count 1.29 10^3/uL (1.2-3.4); Absolute Monocyte Count 0.77 10^3/uL (0.1-0.8); Absolute Neutrophil Count 5.24 10^3/uL (1.2-6.7); Basophils % 0.5; Eosinophils % 2.3; HCT 39.8 % (36.0-46.0); HGB 12.8 g/dL (11.2-15.7); Immature Grans % 0.3; Lymphocytes % 17.1; MCHC 32.2 % (32.0-36.0); MCV 90 fL (80-95); MPV 10.7 fL (8.0-11.0); Monocytes % 10.2; Neutrophils % 69.6; Platelet Count 221 10^3/uL (130-400); RBC 4.41 10^6/uL (3.93-5.22); RDW 14.8 % (11.7-14.6); RDW-SD 48.8 fL; WBC 7.53 10^3/uL (4.4-10.8)
[2022-08-17 06:59] LABS: Anion Gap 9.7 mmol/L (3-11); BUN 25 mg/dL (7-18); CO2 27.3 mmol/L (21.0-32.0); CREATININE 0.8 mg/dL (0.55-1.02); Chloride 101 mmol/L (98-107); Estimated GFR 77.27 (mL/min/1.73m2); Glucose 98 mg/dL (74-106); Sodium 138 mmol/L (136-145)
[2022-08-17 07:35] VITALS: BP 100/60; PULSE 88; RESP 18; TEMP 36.6; O2SAT 96
[2022-08-17] MEDS: Aspirin 81 MG CHEW PO (07:40)
[2022-08-17] MEDS: methIMAzole 5 MG TAB 10 MG PO (07:40)
[2022-08-17] MEDS: Refresh PLUS Eye Drops 0.4ml 1 EACH OU (07:41)
[2022-08-17] MEDS: clonazePAM 0.5 MG TAB PO (07:41)
[2022-08-17] MEDS: Metoprolol 25 MG TAB PO (07:41)
--- NOTE | 2022-08-17 08:47 | DSE_ITS ---
Date of service: 08/17/22 Time of Service: 08:47 DS: Diagnosis Discharge Diagnosis (1) Acute cerebrovascular accident (CVA): Status: Acute (2) Depression with anxiety: Status: Chronic (3) Carotid stenosis, right: Status: Acute (4) Heart failure with preserved ejection fraction: Status: Acute Asessment and Plan: EF 45% Metoprolol Consider Entresto Discharge Plan Disposition Patient Disposition: Retirement Facility(SNF) Condition: Fair Discharge Details Reason For Visit: Acute Left CVA Admit Date/Time: 08/08/22 23:35 Admit Provider: Oziel Gipson Attending Provider: Oziel Gipson Hospital Course Hospital Course: This is a 76 year-old female patient with hyperlipidemia, hypothyroidism, anxiety, tachyarrhythmia on metoprolol, prior syncope, significant COVID infection Feb/Mar 2022, and mood disorder.?She lives alone in [facility].? She was at her home on 08/08/22 and able to call for 911 for help - though was unintelligible on the phone.? She was found down by EMS and brought to [facility] where she was admitted for stroke.? She was not a candidate for tPA as it was unclear when onset was of her symptoms.? [facility] was contacted and she was not a candidate for thrombectomy.? Her NIHSS 28 with FSBS 132 and initial BP 168/90.?She was found to have a global aphasia, speech apraxia, severe dysaphagia, and a right hemiparesis. She was put on aspirin and atorvastatin. She also had HFpEF (EF 45%) that has resolved and she is now on Metoprolol, there are recommendations from cardiology that include Entresto. She has been working with physical therapy and progressing well. She was evaluated by speech therapy and she has been on pureed solids or liquidized solids. Her medications have been crushed. She has been up in the room walking independently without a device. She is able to speak slowly and has less word finding, however still has frustration when unable to find words, which is expected. She is motivated to participate in acute rehab. Her son lives in [place] and is very involved in her recovery efforts. Her vital signs are stable and her labs are unremarkable. She should follow up out patient with neurology. Home Meds and New Rx's Prescriptions: New aspirin [Children's Aspirin] 81 mg Tablet,Chewable 81 mg PO DAILY Qty: 0 0RF atorvastatin 40 mg Tablet 80 mg PO QPM Qty: 0 0RF esomeprazole magnesium [address] For Susp In Packet 40 mg PO BID@ Qty: 0 0RF polyethylene glycol 3350 17 gram Powder In Packet 17 g PO DAILY PRN PRN (Reason: Constipation) Qty: 0 0RF Continued aspirin 81 MG tablet,delayed release (DR/EC) 81 mg PO DAILY Patient Comments: Pt states I take 3 tabs every night clonazepam 0.5 MG tablet 1 tab PO BID amitriptyline 100 mg Tablet 100 mg PO HS metoprolol succinate [Toprol XL] 100 mg Tablet Extended Release 24 Hr 50 mg PO QPM methimazole 5 mg Tablet 10 mg PO BID Discharge Instructions Instructions: Ischemic Stroke (DC) Stand Alone Forms: Nursing Discharge Form Activity:: Activity as Tolerated Equipment/Supplies:: No Equipment Needed Diet:: SOLIDS 4-*Canaan Pureed Solids (LIQUIDIZED SOLIDS) *Ensure pureed textures a Discharge Orders Discharge Orders: Discharge Order (Routine); Ordered 08/17/22 Ordered By: Nelia Marquez Discharge Data Discharge Date/Time-TO BE ENTERED AT DEPARTURE: 08/17/22 10:08 DS: Summary Time Spent with Patient providing and/or coordinating discharge services: Greater than 30 minutes Status at Discharge Functional status at discharge: independent ambulation Overall status at discharge: patient is not back to baseline Mental Status: mental status grossly normal Speech and Movement: delayed speech Mood: congruent mood Affect: normal affect Exam Narrative Exam Narrative: General: Pleasant female up in a chair, alert to voice, answers yes no questions appropriately, has some word finding issues, continues to improve, speaking slow sentences that are meaningful, up walking with PT HEENT: EOMI, MMM, no obvious neglect Heart: irregularly irregular rhythm, no m/r/g Lungs: CTAB Abdomen: soft, nontender, nondistended Extremities: no edema BLEs, moving all 4 extremities, 3/5 strength RUE/RLE, 5/5 LUE/SAIMA Psych Mental Status: mental status grossly normal Speech and Movement: delayed speech Mood: congruent mood Affect: normal affect DS: Data Vitals/I&O Vitals and I&O: Vital Signs Temperature 36.6 C 08/17/22 07:35 Temperature Source Tympanic 08/17/22 07:35 Pulse 88 08/17/22 07:35 Pulse Rhythm Regular 08/17/22 07:15 Pulse Strength Normal 08/08/22 23:36 Pulse 108 H 08/09/22 07:38 Respiratory Rate 18 08/17/22 07:35 Respiratory Effort Normal, Non-Labored 08/17/22 07:15 Respiratory Depth Normal 08/17/22 07:15 Respiratory Pattern Normal 08/17/22 07:15 Blood Pressure 100/60 08/17/22 07:35 Blood Pressure Mean 103 08/09/22 07:38 Blood Pressure Position Sitting 08/08/22 23:36 Pulse Oximetry 96 08/17/22 07:35 Oxygen Delivery Method Room Air 08/17/22 07:35 Oxygen Flow Rate 0 08/17/22 07:35 Pain Level 0 08/17/22 07:35 Comment Nurse aware 08/10/22 13:31 Intake & Output 08/16/22 08/16/22 08/17/22 11:59 23:59 11:59 Intake Total 350 / 650 300 / 650 300 / 300 Output Total 450 / 450 400 / 400 Balance 350 / 200 -150 / 200 -100 / -100 Weight 58.6 kg 58.6 kg 58.5 kg Intake: Oral 350 / 650 300 / 650 300 / 300 Output: Urine 450 / 450 400 / 400 Other: Urine Color Dark Kindra Brown Urine Appearance Clear Cloudy Cloudy Urine Odor None Voiding Methods Urinal Data Completed and Pending Labs on day of discharge: Labs from last 24 hours 08/17/22 08/17/22 06:40 06:40 WBC 7.53 RBC 4.41 Hgb 12.8 Hct 39.8 MCV 90 MCH 29.0 MCHC 32.2 RDW 14.8 H Plt Count 221 MPV 10.7 Immature Gran % 0.3 Neutrophils % 69.6 Lymphocytes % 17.1 Monocytes % 10.2 Eosinophils % 2.3 Basophils % 0.5 Nucleated RBC % 0.0 Absolute Neutrophils 5.24 Absolute Lymphocytes 1.29 Absolute Monocytes 0.77 Absolute Eosinophils 0.17 Absolute Basophils 0.04 Sodium 138 Potassium 4.0 Chloride 101 Carbon Dioxide 27.3 Anion Gap 9.7 BUN 25 H Creatinine 0.8 Est GFR (CKD-EPI 2020) 77.27 Glucose 98 Calcium 9.0 Magnesium 2.0 PFSH All Active Problems (Updated 08/17/22 @ 12:37 by Nelia Marquez NP) Heart failure with preserved ejection fraction (Acute) Carotid stenosis, right (Acute) Palliative care encounter (Acute) Advance care planning (Acute) Acute cerebrovascular accident (CVA) (Acute) Hyperthyroidism (Chronic) Depression with anxiety (Chronic) Tachyarrhythmia (Chronic) Acute CHF (Acute) Dysphagia (Acute) Aphasia (Acute) Hypothyroidism (Chronic) Hemiparesis of right dominant side (Acute) DVT prophylaxis (Acute) Discharge planning issues (Acute) Social History Smoking/Tobacco Use Status: Current every day Smoking risk assessment performed?: Yes Drug use: Never Substance use type: unknown Do you feel safe in your relationship?: Yes Time Spent with Patient Time Spent with Patient: <45 minutes Time was spent: preparing to see the patient(eg.review tests), ordering medications,tests, procedures, referring, communicating with other health wound care specialist, indepentently interpreting results, counseling the patient and care coordination
--- NOTE | 2022-08-17 08:54 | OT.INDS ---
Occupational Therapy Notes Occupational Therapy Inpatient Discharge Summary Date: 08/17/22 Dates of Service: 08/10/22-08/17/22 Referring Doctor:HERNANDEZ MARLEY OT Orders: Non urgent- limited ability Precautions: Fall, Standard, Full PATIENT PROFILE/ADMITTING DIAGNOSIS: Pt is a 76 year old female who was admitted to [facility] with the following dx of palliative care encounter, CVA, Hyperthyroidism, Depression with anxiety, tachyarrhythmia, acute CHF, dysphagia, aphasia, hemiparesis of (R) UE. Past Medical History: All Active Problems?(Updated 08/09/22 @ 01:39 by Hernandez Gipson) Tachyarrhythmia (Chronic) Depression with anxiety (Chronic) Hyperthyroidism (Chronic) Acute cerebrovascular accident (CVA) (Acute) Social History/Home Situation: Pt currently has difficulty with verbal processing and communication. OT was able to ask pt yes no questions which allowed increased (I) in her verbal communication. Pt states that she was (I) at her baseline level of function. She states that she was able to perform her eating, dressing and bathing (I). Equipment owned/DME: Unable to assess SUBJECTIVE:??Pt was lying in bed. She is a very pleasant and reports that she would like to get washed prior to leaving today. OBJECTIVE:? STRENGTH: RUE 2-/5 LUE 4/5 FUNCTIONAL MOBILITY/ADLS: BATHING max (A) set up/clean up lying in bed Bathing UE with vc and use of (L) UE pt an wash her face and (R) UE Bathing LE to mid thigh otherwise max (A) DRESSING Mod (A) donning shirt and bra Max (A) donning socks and pants GROOMING (I) with brushing hair with (L) UE ASSESSMENT:?? Patient is a 76-year-old female referred to occupational therapy services with diagnosis of palliative care encounter, CVA, Hyperthyroidism, Depression with anxiety, tachyarrhythmia, acute CHF, dysphagia, aphasia, hemiparesis of (R) UE. Nursing states that pt is being discharged this morning. She is receptive to performance of her ADLs but she does require vc and (A). GOALS 1.? Oral Hygiene mod (A) seated- met 2.? Dressing mod (A) donning hospital gown- met 3.? Bathing mod (A) UE- met 4.? Toileting Mod (A) on commode- not met 5.? Eating (I)- met PLAN OF CARE/TREATMENT PLAN: Discharge from skilled OT services- pt is being discharged to SNF today. DISCHARGE RECOMMENDATIONS [facility] vs. SNF when medically cleared per MD. TREATMENT TIME/MINUTES/CODES [id number], 30 minutes Aide Jackson OTR/L [facility] [place], [place]
--- NOTE | 2022-08-17 09:05 | CMDISCH_ITS ---
Date of service: 08/17/22 Time of Service: 09:05 LACE Index Scoring Tool Questions: Length of Stay (in days): 7 - 13 Was the patient admitted via the E.D.?: Yes Comorbidities: Cerebrovascular Disease and Congestive Heart Failure E.D. Visits: 1 Answers: Total Score: 12 Risk of Readmission: High Risk Care Management Discharge Plan Reason for Hospitalization: CVA Discharge Plan: Bridgette will transfer to [facility] today for short term rehab. A bed offer was received and accepted yesterday. She will transport via EMS ([facility]) coordinated by CM and will follow up with providers at [facility] as her son would like her to remain in that area. Patient/Family Education Needs: Review discharge instructions, activity, limitations, follow up plan and discuss Ask Me Three. Services Needed at Discharge: Care Home Facility
[2022-08-17] MEDS: LORazepam 1 MG TAB PO (09:41)
--- NOTE | 2022-08-19 14:46 | INDS_ITS ---
Date of service: 08/16/22 PT Notes Visit Reasons: Acute Left CVA Physical Therapy Inpatient Progress Note Date: 08/09/2022 Dates of Service:? 08/09/2022 through 08/16/2022 Referring Doctor: Oziel Gipson MD PT Orders: PT CONSULT: Limited ability Precautions: Fall. Standard.? Activity as tolerated.? R-sided hemiparesis.? Aphasic. Subjective: Per BARBARA Singer patient had an unwitnessed fall about half an hour before PT showed up.? Nurse Casie stated that she did a neuro exam and patient appeared okay.? Patient is agreeable to sitting at edge of bed and doing seated exercises.? Denies headache,? chest pain and lightheadedness throughout session.? Did verbalize being so fatigued and wanting to rest after short session.? Objective: General Observation: Resting in bed.?? Telemetry monitoring in place.? Facial palsy noted. Mental Status: Alert and oriented as to person.? Able to follow single-step commands.? Pain: Denies Vital Signs: Closely monitored via tele and by nursing staff,? on permissive hypertension per MD.? WFL as remeasured by PT and BARBARA Singer during session. ROM: Right Upper Extremity: ? Shoulder Flexion lacks the last 25% of AROM. Shoulder abduction lacks the last 25% of AROM. Elbow flexion WFL. Wrist flexion WFL. Functional opening and closing of hand WFL. Left Upper Extremity:? Shoulder Flexion WFL. Shoulder abduction WFL. Elbow flexion WFL. Wrist flexion WFL. Functional opening and closing of hand WFL. Right Lower Extremity: Hip flexion lacks the last 25% of AROM. Hip abduction WFL. Knee flexion WFL. Ankle dorsiflexion to neutral only. Ankle plantarflexion WFL. Left Lower Extremity: Hip flexion WFL. Hip abduction WFL. Knee flexion WFL. Ankle dorsiflexion WFL. Ankle plantarflexion WFL. Strength: Right Upper Extremity: Shoulder flexors 3-/5. Shoulder abductors 3-/5. Elbow flexors 3/5. Elbow extensors 3/5. Drapery Worker weak but functional. Left Upper Extremity: Shoulder flexors 4/5. Shoulder abductors 4/5. Elbow flexors 4/5. Elbow extensors 4/5. Drapery Worker strong. Right Lower Extremity: Hip flexors 3-/5. Hip abductors 3-/5. Knee flexors 4-/5. Knee extensors 3/5. Ankle dorsiflexors 3-/5. Ankle plantarflexors 4-/5. Left Lower Extremity: Hip flexors 4/5. Hip abductors 4/5. Knee flexors 4/5. Knee extensors 4/5. Ankle dorsiflexors 4/5. Ankle plantarflexors 4/5. Bed Mobility/Transfers: Rolling minimal assist Supine to sit minimla assist with HOB at 45 degrees Sit to supine moderate assist Sit to stand deferred Stand to sit deferred Gait: Patient able to walk up to 300 feet of level surface ambulation using her FWW with stand by assist. Step length and height assymetrical. NEURO RE-ED: Worked on trunk static and dynamic stability while increasing elbow,? wrist,? and IP extension while seated at edge of bed.? PT provided assistance with locking elbow into extension while B arms are placed behind patient in bed to hold patient up.? Engaged B LE muscle groups to increase hip and knee movements while at edge of bed.? Verbal and tactile cues provided to optimize head and trunk positioning in sitting. Balance: Static Sitting: Good Dynamic Sitting: Fair Static Standing: Fair Dynamic Standing: Fair NEURO: Babinski: Positive on R Tone:? Increasing tone in R UE Rapid Alternating movement:? Impaired Motor apraxia:? Positive ASSESSMENT: Continued R-sided hemiparesis,? motor apraxia, and aphasia limit ability of patient to safely participate in mobility ADL performance.? R UE and LE tone increasing.? Fell one time while on admission. Will benefit from acute stroke facility placement to address remaining symptoms. Patient presents with clinical signs and symptoms consistent with current/admitting diagnoses that have resulted to mobility limitations, gait instability, generalized weakness, and overall ADL decline as demonstrated by the following impairment level findings: 1.? Decreased strength to R UE/LE and L LE major muscle groups 2.? Impaired sitting/standing balance 3.? Impaired activity tolerance 4.? Limitation of joint range of motion in R UE/LE 5.? Expressive aphasia 6.? Motor apraxia Impairments are contributing to the following functional limitations: 1.? Decline in bed mobility skills 2.? Decline in transfer skills 3.? Difficulty with ambulation without assistive device and physical assistance 4.? Increased completion time for mobility ADL performance 5.? Increased risk for falls 6.? Difficulty with managing steps alone safely Patient is assessed as a [id number] moderate complexity based on the following: History: 76-year-old female with past medical history as indicated above Examination: Demonstrable impairment in strength, balance, and mobility level with underlying impairments and functional limitations as exhibited above as well as deficit score of 47% utilizing the [facility] Mobility Inpatient Short Form Presentation: Evolving Decision Makin moderate complexity Goals: Goals X1 week 1. Supine-Sit contact guard assist NOT MET,? CONTINUE 2. Sit-Supine contact guard assist NOT MET,? CONTINUE 3. Sit-Stand contact guard assist NOT MET,? CONTINUE 4. Stand-Sit contact guard assist with hemiwalker NOT MET,? CONTINUE.? CHANGE DEVICE TO FWW 5. Bed-Chair contact guard assist with hemiwalker NOT MET,? CONTINUE.? CHANGE DEVICE TO FWW 6. Chair-Bed contact guard assist with hemiwalker NOT MET,? CONTINUE.? CHANGE DEVICE TO FWW 7. Independent gait on level surface with use of hemiwalker for at least 30 feet without report of pain nor dyspnea NOT MET,? CONTINUE.? CHANGE DEVICE TO FWW.? PROGRESS TO 300 feet. 8. Fair static and dynamic standing balance/tolerance? NOT MET,? CONTINUE PLAN OF CARE/TREATMENT PLAN: -1-2x/day, 7 days/week x 1 week. -Plan of care has been reviewed with the ROLLER PRINTING SUPERVISOR providing the service under Physical Therapy direction. -Monitor BP during activity as patient is on permissive hypertension at this time. -Initiate Physical Therapy intervention for strengthening, bed mobility, transfers, gait, stairs, balance training, and use of assistive device. DISCHARGE RECOMMENDATIONS: [] ? Home with no services [] [] ? Home with services [specify] [] ? Home with outpatient PT [] [] ? SNF for continued rehabilitation [] [] ? [facility] [] [] ? SNF versus LTC based on ability to participate and progress [] [X]? Patient will benefit from acute stroke rehab facility placement in order to address remaining impairments listed above and progress mobility level using the least restrictive device TREATMENT CODE/TIME: NC Thank you for the opportunity to participate in the care of this patient. Laquita Avila PT, DPT, CLT [facility] [place], [place]
== END 2022-08-17 10:08 | disposition skilled nursing facility (03) | DRG 64 ==
LOC: ER 08-09 07:20 → MS 08-09 09:07
PROVIDERS: Internal Medicine; Nurse Practitioner Family; Admitting Provider Family Medicine; Emergency Provider Emergency Medicine; Visit Provider Family Medicine
DX: I63.39 Cerebral infarction due to thrombosis of other cerebral artery (principal); I50.31 Acute diastolic (congestive) heart failure; G81.01 Flaccid hemiplegia affecting right dominant side; R47.01 Aphasia; R29.810 Facial weakness; E05.90 Thyrotoxicosis, unspecified without thyrotoxic crisis or storm; R00.0 Tachycardia, unspecified; F41.8 Other specified anxiety disorders; R13.10 Dysphagia, unspecified; E03.9 Hypothyroidism, unspecified; F17.210 Nicotine dependence, cigarettes, uncomplicated; E78.5 Hyperlipidemia, unspecified; F39 Unspecified mood [affective] disorder; Z86.16 Personal history of COVID-19; R29.728 NIHSS score 28; I65.21 Occlusion and stenosis of right carotid artery; I49.3 Ventricular premature depolarization; I08.1 Rheumatic disorders of both mitral and tricuspid valves
CPT/HCPCS: 36415; 70496; 70498; 80048; 80053; 80061; 85027; 87077; 92526; 92610; 92611; 93005; 93306; 97110; 97112; 97116; 97163; 97167; 97530; 97535; 99222; 99223; 99232; 99291; 70450; 70551; 71045; 74221; 81003; 81015; 82607; 83036; 83735; 83880; 84439; 84443; 84484; 85025; 85610; 85730; 87086; 87186; 92507; 92523; 93010; 99233; 99239; J1941; J3490

== ENCOUNTER → 2022-08-09 08:11 | Outpatient (BNVA) | payer MEDICARE, MEDICAID, SELFPAY | PROVIDERS: PCP Internal Medicine; Referring Provider Internal Medicine; Visit Provider Psychiatry & Neurology Neurology ==

== ENCOUNTER → 2022-08-10 08:54 | Outpatient (BNVA) | payer MEDICARE, MEDICAID, SELFPAY | PROVIDERS: PCP Internal Medicine; Referring Provider Internal Medicine; Visit Provider Internal Medicine Cardiovascular Disease ==